=== PATIENT | male | born 1960 | race Hispanic/Latino ===

== ENCOUNTER 2019-01-29 03:34 | Inpatient (IN) | payer BC ==
[2019-01-29] MEDS ORDERED: Sodium Chloride 0.9% 50 ML IV ONE (04:17)
[2019-01-29] MEDS ORDERED: Iodixanol 320 MG/ML 100 ML BOTTLE IV ONE (04:17)
[2019-01-29 04:26] LABS: BASO # 0.1 K/uL (0.0-0.2); BASO % 1.1 % (0.0-2.0); EOS # 0.1 K/uL (0.0-0.7); EOS % 0.7 % (0.0-4.0); HEMOGLOBIN 17.1 g/dL (12.0-18.0); LYMPH # 2.2 K/uL (1.0-4.3); LYMPH % 17.2 % (20.0-40.0); MEAN CELL VOLUME 90.6 fl (80.0-94.0); MEAN CORPUSCULAR HEMOGLOBIN 30.6 pg (27.0-31.0); MEAN CORPUSCULAR HGB CONC 33.7 g/dL (33.0-37.0); MEAN PLATELET VOLUME 10.4 fl (7.2-11.7); MONO % 7.5 % (0.0-10.0); NEUT # 9.4 K/uL (1.8-7.0); NEUT % 73.5 % (50.0-75.0); NRBC % 0.1 % (0.0-0.0); RBC 5.59 Mil/uL (4.40-5.90); RED CELL DISTRIBUTION WIDTH 12.9 % (11.5-14.5); WHITE BLOOD COUNT 12.8 K/uL (4.8-10.8)
--- NOTE | 2019-01-29 04:27 | ED PDOC ---
HPI:STROKE - Time Time: 03:48 - Historian Historian: Patient - Chief Complaint Chief Complaint: Weakness (to right lower extremity), Numbness (to right lower extremity), Arm weakness, Leg weakness, Difficulty standing, Difficulty walking - Onset Date: 01/28/19 Time: 21:00 Onset: Hours (x5) - Location Locate right:: Upper extremity, Lower extremity - Associated Symptoms Associated symptoms:: Pain (right sided) - TPA Positive for Contraindication: No - Notes: Notes:: 58 years old male with no PMHx presents to ER for evaluation of right sided weakness and numbness onset 5 hours ago. States that around 10PM he noticed some clumsiness of his R hand that resolved. Patient reports at 11 o'clock he noticed combination of numbness, weakness and pain in right upper extremity. He states symptoms were coming and going but then persistent. Patient reports he felt he could not walk and has no strength in lower extremity. He states when he tried to walk, he immediately fell on the ground and crawled to the kitchen. Patient denies any chest pain, shortness of breath, alcohol or drug use. Active smoker. PMD: None provided, has not seen doctor in 10 years NIHSS Stroke Scale - Date/Time Evaluation Performed Date Performed: 01/29/19 Time Performed: 03:48 - How Severe is the Stroke Level of Consciousness: 0=Alert LOC to Questions: 0=Both comments correct LOC to commands: 0=Obeys both correctly Best Gaze: 0=Normal Visual: 0=No visual loss Facial: 0=Normal Motor Arm - Left: 0=No drift Motor Arm - Right: 0=No drift Motor Leg - Left: 0=No drift Motor Leg - Right: 0=No drift Limb Ataxia: 0=Absent Sensory: 0=Normal Best Language: 0=No aphasia Dysarthia: 0=Normal articulation Extinction & Inattention (Neglect): 0=Normal, no object Score: 0 rTPA Inclusion/Exclusion - Refusal of Treatment Patient Refused Treatment: No - Inclusion Criteria for Altepase All of the below criteria for inclusion were reviewed: Yes Patient is 18 years or Older: Yes The Clinical Diagnosis of Ischemic Stroke That is Causing a Potentially Disabling Neurological Deficit: Yes Time of Onset is Well Established to be Less Than 270 Minute Before Treatment Would Begin: No Risk/Benefit Discussed With Patient/Family Member Present: Yes Past Medical History Reviewed: Historical Data, Nursing Documentation, Vital Signs Vital Signs: Last Vital Signs Temp 98.7 F 01/29/19 03:39 Pulse 116 H 01/29/19 03:39 Resp 18 01/29/19 03:39 BP 200/139 H 01/29/19 03:39 Pulse Ox 100 01/29/19 03:39 - Medical History PMH: No Chronic Diseases - Surgical History Surgical History: No Surg Hx - Family History Family History: States: Unknown Family Hx - Allergies Allergies/Adverse Reactions: Allergies Allergy/AdvReac Type Severity Reaction Status Date / Time No Known Allergies Allergy Verified 01/29/19 03:48 Review of Systems ROS Statement: Except As Marked, All Systems Reviewed And Found Negative Cardiovascular: Negative for: Chest Pain Respiratory: Negative for: Shortness of Breath Neurological: Positive for: Weakness (to right upper and lower extremity), Numbness (to right upper and lower extremity) Physical Exam - Reviewed Nursing Documentation Reviewed: Yes Vital Signs Reviewed: Yes - Physical Exam Appears: Positive for: Well, No Acute Distress Head Exam: Positive for: ATRAUMATIC, NORMOCEPHALIC Skin: Positive for: Normal Color, Warm, Dry Eye Exam: Positive for: Normal appearance, EOMI, PERRL ENT: Positive for: Normal ENT Inspection Neck: Positive for: Normal, Painless ROM, Supple Cardiovascular/Chest: Positive for: Regular Rate, Rhythm. Negative for: Murmur Respiratory: Positive for: Normal Breath Sounds. Negative for: Respiratory Distress Gastrointestinal/Abdominal: Positive for: Normal Exam, Soft. Negative for: Tenderness Back: Positive for: Normal Inspection. Negative for: L CVA Tenderness, R CVA Tenderness Extremity: Positive for: Normal ROM. Negative for: Pedal Edema, Deformity Neurological/Psych: Positive for: Awake, Alert, Oriented (x3), Gait (Cannot stand on R leg), Cerebellar Tests (Normal), crude unit operator II-XII (Normal), Other (Normal speech). Negative for: Lethargic, Motor/Sensory Deficits, Facial Droop - Laboratory Results Result Diagrams: 01/29/19 04:05 01/29/19 04:05 Lab Results: PT 11.0 Seconds (9.8-13.1) 01/29/19 04:05 INR 1.0 01/29/19 04:05 - ECG O2 Sat by Pulse Oximetry: 100 (RA) Pulse Ox Interpretation: Normal Medical Decision Making Medical Decision Making: Time: 347 A/P: Subjective weakness and numbness to right side --Code stroke initiated, patient is currently with INH score of zero --TPA not administered --Will admit to telemetry for MRI and stroke 0411 CT Head Findings: There is normal configuration of sella turcica. There are no intra or extra-axi al collections. There is no mass effect or midline shift. There is no evidence of hematoma formation. No hydrocephalus is present. The ventricles are symmetrical. No abnormal calcifications are present. There is diffuse age-appropriate cerebellar and cerebral atrophy with proportionally dilated ventricles and cortical sulci. There are bilateral periventricular and subcortical white matter hypolucencies compatible with mild chronic microvascular disease. Otherwise, no significant focal abnormalities are seen either in the posterior fossa or supratentorial compartment. IMPRESSION: 1. Age-appropriate cerebellar and cerebral atrophy. 2. Mild chronic microvascular disease. 3. No evidence of acute intracranial pathology. 515 Patient re-evaluated, still with 5/5 strength but now has pronator drift on the R that was not present on initial exam, cannot stand up without falling to the L Currently BP is 113/84, HR [address] Alaniz [address] Alaniz who recommends ASA and MRI for possible cerebellar infarct Will place in Tele for further stroke workup and management 0537 CT Angio of Head Findings: Normal bilateral petrous carotid arteries. Normal right cavernous carotid artery with a normal supraclinoid bifurcation. Normal left cavernous carotid artery with a normal supraclinoid bifurcation. Normal right A1 segments of the anterior cerebral artery. Normal left A1 segments of the anterior cerebral artery. Normal intact anterior communicating artery (ACOM). Normal bilateral A2 segments of the anterior cerebral arteries. Normal right M1 and M2 segments of the middle cerebral arteries, with a normal M1 bifurcation. Normal left M1 and M2 segments of the middle cerebral arteries, with a normal M1 bifurcation. Normal right posterior communicating artery (PCOM). Normal left posterior communicating artery (PCOM). Normal bilateral vertebral arteries. Normal basilar artery with a normal basilar bifurcation. The visualized bilateral superior cerebellar (SCA) arteries are normal. Normal bilateral P1, P2 and visualized P3 segments of the posterior cerebral arteries. There is no demonstrated aneurysm of the [place]. There is no major vessel occlusion or hemodynamically significant stenosis. IMPRESSION: Normal CTA of the head. CT angiography of the neck vessels. Indication: Right-sided weakness. Technique: Axial CT angiographic images. Reformatted coronal and sagittal images. Findings: RIGHT CAROTID ARTERIES: Normal right common carotid artery (CCA). Normal right common carotid bulb. Normal origin of the right internal carotid (ICA) artery without a hemodynamically significant stenosis. Normal visualized cervical portion of the right internal carotid artery. Normal origin of the right external carotid artery (ECA). LEFT CAROTID ARTERIES: Normal left common carotid artery (CCA). 30 percent stenosis of the left common carotid bulb. 30% stenosis of the origin of the left internal carotid (ICA) chito ry without a hemodynamically significant stenosis. Normal visualized cervical portion of the left internal carotid artery. Normal origin of the left external carotid artery (ECA). VERTEBRAL ARTERIES: Normal antegrade flow within the bilateral vertebral artery without a hemodynamically significant stenosis. Multinodular thyroid goiter. IMPRESSION: 30% stenosis of the origin of the left internal carotid artery. 645AM --Case discussed wt Dr. Rosenberg who will assume care Scribe Attestation: Documented by Estefany Sanches, acting as a scribe for Warren Mckeon MD. Provider Scribe Attestation: All medical record entries made by the Scribe were at my direction and personally dictated by me. I have reviewed the chart and agree that the record accurately reflects my personal performance of the history, physical exam, medical decision making, and the department course for this patient. I have also personally directed, reviewed, and agree with the discharge instructions and disposition. Disposition - Clinical Impression Clinical Impression: Weakness - Disposition Disposition Time: 05:00 Condition: FAIR
[2019-01-29 04:28] LABS: PARTIAL THROMBOPLASTIN TIME 28.9 Seconds (25.6-37.1)
[2019-01-29 04:31] LABS: ALB/GLOB RATIO 1.7 (1.0-2.1); ALBUMIN 4.6 g/dL (3.5-5.0); ALT/SGPT 27 U/L (21-72); AST/SGOT 22 U/L (17-59); BLOOD UREA NITROGEN 21 mg/dl (9-20); CALCIUM 9.5 mg/dL (8.4-10.2); GFR NON-AFRICAN AMERICAN > 60; HDL CHOLESTEROL 50 MG/DL (30-70)
[2019-01-29 04:42] LABS: LDL CHOLESTEROL 90 mg/dL (0-129)
[2019-01-29] MEDS: Sodium Chloride 0.9% 1,000 ML IV SCH ×2 (06:42→16:58)
--- NOTE | 2019-01-29 07:32 | CARD ---
APPROVED REPORT Date of service: 01/29/2019 EKG Measurement Heart [id number] <Conclusion> Normal sinus rhythm Possible Left atrial enlargement T wave abnormality, consider inferior ischemia Abnormal ECG
--- NOTE | 2019-01-29 08:17 | RAD ---
Date of service: 01/29/2019 HISTORY: Code Stroke COMPARISON: No prior. TECHNIQUE: 1 view obtained. FINDINGS: LUNGS: No active pulmonary disease. PLEURA: No significant pleural effusion identified, no pneumothorax apparent. CARDIOVASCULAR: No aortic atherosclerotic calcification present. Normal cardiac size. No pulmonary vascular congestion. OSSEOUS STRUCTURES: No significant abnormalities. VISUALIZED UPPER ABDOMEN: Normal. OTHER FINDINGS: None. IMPRESSION: No acute cardiopulmonary disease appreciated.
--- NOTE | 2019-01-29 09:52 | CT ---
Date of service: 01/29/2019 PROCEDURE: CT HEAD WITHOUT CONTRAST. HISTORY: TIA, initial exam COMPARISON: None available. TECHNIQUE: Axial computed tomography images were obtained through the head/brain without intravenous contrast. Radiation dose: Total exam DLP = 933.02 mGy-cm. This CT exam was performed using one or more of the following dose reduction techniques: Automated exposure control, adjustment of the mA and/or kV according to patient size, and/or use of iterative reconstruction technique. FINDINGS: HEMORRHAGE: No intracranial hemorrhage. BRAIN: The delatorre-white matter differentiation is well preserved. There is no mass effect or definitive edema pattern appreciated including the cortex. There is trace but proportional expansion of the ventriculosulcal and cisternal spaces however in a pattern most compatible with diffuse cerebral atrophy. Trace chronic microangiopathy is appreciated in the periventricular white as well. No suspicious extra-axial fluid collection is identified in the midline brain anatomy appears grossly nonfocal as imaged. VENTRICLES: Ventricular system upper limits of normal. No definite hydrocephalus. CALVARIUM: Unremarkable. PARANASAL SINUSES: Unremarkable as visualized. No significant inflammatory changes. MASTOID AIR CELLS: Unremarkable as visualized. No inflammatory changes. OTHER FINDINGS: None. IMPRESSION: Trace age related neuro degenerative changes are appreciated. Ventricular system appears upper limits of normal with hydrocephalus not favored. Overall pattern likely a function of mild cerebral atrophy. No evidence of acute or subacute brain infarction. Follow-up CT or MRI are available as clinically warranted. Concordant preliminary report from [facility], 01/29/2019, 4:11 a.m..
[2019-01-29 10:12] LABS: BARBITURATES, UR NEGATIVE (NEGATIVE); BENZODIAZEPINES, UR NEGATIVE (NEGATIVE); OPIATES, UR NEGATIVE (NEGATIVE); PHENCYCLIDINE, UR NEGATIVE (NEGATIVE)
--- NOTE | 2019-01-29 11:12 | MRI ---
Date of service: 01/29/2019 PROCEDURE: MRI BRAIN WITHOUT CONTRAST HISTORY: possible cerebellar stroke COMPARISON: CT head without contrast performed earlier the same day. TECHNIQUE: Multiplanar, multisequence MR images of the brain were obtained without intravenous contrast enhancement. FINDINGS: HEMORRHAGE: None DWI: There is focal restricted diffusion in the left posterior thalamus capsular region. BRAIN PARENCHYMA: There are mild chronic microangiopathic changes. There is a 2.0 x 2.7 cm CSF signal intensity left frontal convexity extra-axial mass. No evidence of vasogenic edema in the underlying frontal lobe. There is no mass effect or abnormal extra-axial fluid collection VENTRICLES: There is mild age advanced global parenchymal volume loss and proportionate enlargement of the ventricles and cortical sulci. CRANIUM: There is normal bone marrow signal pattern. ORBITS: Grossly unremarkable. PARANASAL SINUSES/MASTOIDS: Clear VASCULAR SYSTEM: Skull base flow voids intact. OTHER FINDINGS: None. IMPRESSION: 1. Acute left MCA territory infarction involving the posterior thalamus capsular region. 2. 2.0 x 2.7 cm left frontal convexity CSF signal intensity extra-axial mass is statistically most compatible with an arachnoid cyst. 3. Mild chronic microangiopathic changes. 4. Mild age advanced global parenchymal volume loss. Important findings were discussed with Dr. Arroyo in the ER on 01/29/2019 at 11:04 a.m.
--- NOTE | 2019-01-29 12:34 | CT ---
Date of service: 01/29/2019 PROCEDURE: CT Angiography of the Brain. HISTORY: R sided weakness COMPARISON: Unenhanced head CT 01/29/2019 3:55 a.m.. TECHNIQUE: CT angiography of the head and neck was performed following intravenous contrast administration. Coronal and sagittal maximum intensity projection reformatted images were generated. Contrast Dose: Visipaque 320, 95 cc Radiation dose: Total exam DLP = 511.46 mGy-cm. This CT exam was performed using one or more of the following dose reduction techniques: Automated exposure control, adjustment of the mA and/or kV according to patient size, and/or use of iterative reconstruction technique. FINDINGS: INTERNAL CEREBRAL ARTERIES: Unremarkable. The skull base, petrous, cavernous and supraclinoid segments are bilaterally widely patent. ANTERIOR CEREBRAL ARTERIES: Unremarkable. A1 and A2 segments are widely patent. Smaller distal branches unremarkable, as visualized. MIDDLE CEREBRAL ARTERIES: Unremarkable. M1 and M2 segments are widely patent. Perisylvian branches grossly symmetric. POSTERIOR CIRCULATION: Basilar Artery: Unremarkable. Distal Vertebral Arteries: Codominant vertebrobasilar circulation. Posterior Cerebral Arteries: Unremarkable. Posterior Inferior Cerebellar Arteries: Unremarkable. NECK CTA: Aortic Arch: Normal three vessel arch identified. Common Carotid arteries: The bilateral common carotid appear widely patent from their origins to their bifurcations with no significant stenosis appreciated. Trace soft plaque right carotid bulb. Noncalcified plaque is more obvious at the left carotid bulb without at the right minimal calcification associated at the bilateral origins of the external carotid arteries. No evidence to suggest common carotid artery dissection. Internal Carotid arteries: No significant stenosis is appreciated throughout the cervical internal carotid artery segments bilaterally and there is no evidence of dissection either. External Carotid arteries: Appear widely patent. Vertebral arteries: The bilateral vertebral arteries appear normal in caliber from their origins to their distal cervical segments. No significant stenosis or definite pattern of dissection. ANEURYSM/ VASCULAR MALFORMATIONS: None. OTHER FINDINGS: None. IMPRESSION: 1. No large vessel occlusion or significant stenosis demonstrated by CT angiography of the brain. No definite aneurysm or arteriovascular malformation identified either. 2. No significant stenosis bilateral common or internal carotid or bilateral vertebral arteries. 3. Moderate soft plaque left carotid bulb without significant stenosis left ICA. Trace soft plaque right carotid bulb. 4. Three vessel aortic arch appreciated. Discordant preliminary report from [facility], 01/29/2019 at 5:37 a.m. in that there is no stenosis of the left internal carotid artery based on NASCET criteria.
[2019-01-29 13:22] VITALS: BMI 27.2
--- NOTE | 2019-01-29 13:29 | CARD ---
APPROVED REPORT Date of service: 01/29/2019 EKG Measurement Heart [id number] [place] 146P58 [id number] <Conclusion> Normal sinus rhythm T wave abnormality, consider inferior ischemia Prolonged QT Abnormal ECG
[2019-01-29 14:41] LABS: TROPONIN I 0.019 ng/mL (0.00-0.120)
--- NOTE | 2019-01-29 16:38 | CP.PCM.CON ---
History of Present Illness - History of Present Illness History of Present Illness: Neurology consult dictated. 58 yr old male who has had several spells that were thought to be TIA, but i feel that this is dementia. On extensive history taking from family, that is what it appears to be. Plan: 1. VIDEO eeg to rule out epilepsy 2. COntinue all meds THank you DR. Alaniz Neurology Past Patient History - Past Medical History & Family History Past Medical History?: Yes - Past Social History Smoking Status: Current Some Days Smoker - CARDIAC Hx Cardiac Disorders: No - PULMONARY Hx Respiratory Disorders: No - NEUROLOGICAL Hx Neurological Disorder: No - HEENT Hx HEENT Problems: No - RENAL Hx Chronic Kidney Disease: No - ENDOCRINE/METABOLIC Hx Endocrine Disorders: No - HEMATOLOGICAL/ONCOLOGICAL Hx Blood Disorders: No - INTEGUMENTARY Hx Dermatological Problems: No - MUSCULOSKELETAL/RHEUMATOLOGICAL Hx Musculoskeletal Disorders: No - GASTROINTESTINAL Hx Gastrointestinal Disorders: No - GENITOURINARY/GYNECOLOGICAL Hx Genitourinary Disorders: No - PSYCHIATRIC Hx Psychophysiologic Disorder: Yes - SURGICAL HISTORY Hx Surgeries: Yes Hx Appendectomy: Yes (at age 12) - ANESTHESIA Hx Anesthesia: Yes Hx Anesthesia Reactions: No Hx Malignant Hyperthermia: No Has any member of the family had a problem w/ anesthesia?: No Meds Allergies/Adverse Reactions: Allergies Allergy/AdvReac Type Severity Reaction Status Date / Time No Known Allergies Allergy Verified 01/29/19 03:48 - Medications Medications: Current Medications Atorvastatin Calcium (Lipitor) 40 mg PO DAILY [facility] Enoxaparin Sodium (Lovenox) 40 mg SC DAILY [facility]; Protocol Insulin Human Lispro (Humalog) 0 units SC ACHS [facility]; Protocol Metformin HCl (Glucophage) 1,000 mg PO BIDWM [facility] Results - Vital Signs Recent Vital Signs: Last Vital Signs Temp 97.8 F 01/29/19 15:04 Pulse 100 H 01/29/19 15:04 Resp 18 01/29/19 15:04 BP 175/100 H 01/29/19 15:04 Pulse Ox 97 01/29/19 15:04 - Labs Result Diagrams: 01/29/19 04:05 01/29/19 04:05 Labs: Laboratory Results - last 24 hr 01/29/19 01/29/19 01/29/19 04:05 04:05 04:05 WBC 12.8 H RBC 5.59 Hgb 17.1 Hct 50.7 MCV 90.6 MCH 30.6 MCHC 33.7 RDW 12.9 Plt Count 164 MPV 10.4 Neut % (Auto) 73.5 Lymph % (Auto) 17.2 L [place] % (Auto) 7.5 Eos % (Auto) 0.7 Baso % (Auto) 1.1 Neut # (Auto) 9.4 H Lymph # (Auto) 2.2 [place] # (Auto) 1.0 H Eos # (Auto) 0.1 Baso # (Auto) 0.1 PT INR APTT Sodium 137 Potassium 3.8 Chloride 100 Carbon Dioxide 27 Anion Gap 14 BUN 21 H Creatinine 0.8 Est GFR ( Amer) > 60 Est GFR (Non-Af Amer) > 60 POC Glucose (mg/dL) Random Glucose 262 H Hemoglobin A1c 9.8 H Calcium 9.5 Total Bilirubin 0.7 AST 22 ALT 27 Alkaline Phosphatase 100 Troponin I 0.0250 Total Protein 7.3 Albumin 4.6 Globulin 2.7 Albumin/Globulin Ratio 1.7 Triglycerides 98 Cholesterol 160 LDL Cholesterol Direct 90 HDL Cholesterol 50 TSH 3rd Generation Urine Opiates Screen Urine Methadone Screen Ur Barbiturates Screen Ur Phencyclidine Scrn Ur Amphetamines Screen U Benzodiazepines Scrn U Oth Cocaine Metabols U Cannabinoids Screen Blood Type Blood Type Confirm Antibody Screen BBK History Checked 01/29/19 01/29/19 01/29/19 04:05 04:05 05:56 WBC RBC Hgb Hct MCV MCH MCHC RDW Plt Count MPV Neut % (Auto) Lymph % (Auto) [place] % (Auto) Eos % (Auto) Baso % (Auto) Neut # (Auto) Lymph # (Auto) [place] # (Auto) Eos # (Auto) Baso # (Auto) PT 11.0 INR 1.0 APTT 28.9 Sodium Potassium Chloride Carbon Dioxide Anion Gap BUN Creatinine Est GFR ( Amer) Est GFR (Non-Af Amer) POC Glucose (mg/dL) 248 H Random Glucose Hemoglobin A1c Calcium Total Bilirubin AST ALT Alkaline Phosphatase Troponin I Total Protein Albumin Globulin Albumin/Globulin Ratio Triglycerides Cholesterol LDL Cholesterol Direct HDL Cholesterol TSH 3rd Generation Urine Opiates Screen Urine Methadone Screen Ur Barbiturates Screen Ur Phencyclidine Scrn Ur Amphetamines Screen U Benzodiazepines Scrn U Oth Cocaine Metabols U Cannabinoids Screen Blood Type B POSITIVE Blood Type Confirm Antibody Screen Negative BBK History Checked No verified bt 01/29/19 01/29/19 01/29/19 09:10 12:30 13:55 WBC RBC Hgb Hct MCV MCH MCHC RDW Plt Count MPV Neut % (Auto) Lymph % (Auto) [place] % (Auto) Eos % (Auto) Baso % (Auto) Neut # (Auto) Lymph # (Auto) [place] # (Auto) Eos # (Auto) Baso # (Auto) PT INR APTT Sodium Potassium Chloride Carbon Dioxide Anion Gap BUN Creatinine Est GFR ( Amer) Est GFR (Non-Af Amer) POC Glucose (mg/dL) Random Glucose Hemoglobin A1c Calcium Total Bilirubin AST ALT Alkaline Phosphatase Troponin I 0.0190 Total Protein Albumin Globulin Albumin/Globulin Ratio Triglycerides Cholesterol LDL Cholesterol Direct HDL Cholesterol TSH 3rd Generation 2.75 Urine Opiates Screen Negative Urine Methadone Screen Negative Ur Barbiturates Screen Negative Ur Phencyclidine Scrn Negative Ur Amphetamines Screen Negative U Benzodiazepines Scrn Negative U Oth Cocaine Metabols Negative U Cannabinoids Screen Positive H Blood Type Blood Type Confirm B POSITIVE Antibody Screen BBK History Checked 01/29/19 16:05 WBC RBC Hgb Hct MCV MCH MCHC RDW Plt Count MPV Neut % (Auto) Lymph % (Auto) [place] % (Auto) Eos % (Auto) Baso % (Auto) Neut # (Auto) Lymph # (Auto) [place] # (Auto) Eos # (Auto) Baso # (Auto) PT INR APTT Sodium Potassium Chloride Carbon Dioxide Anion Gap BUN Creatinine Est GFR ( Amer) Est GFR (Non-Af Amer) POC Glucose (mg/dL) 254 H Random Glucose Hemoglobin A1c Calcium Total Bilirubin AST ALT Alkaline Phosphatase Troponin I Total Protein Albumin Globulin Albumin/Globulin Ratio Triglycerides Cholesterol LDL Cholesterol Direct HDL Cholesterol TSH 3rd Generation Urine Opiates Screen Urine Methadone Screen Ur Barbiturates Screen Ur Phencyclidine Scrn Ur Amphetamines Screen U Benzodiazepines Scrn U Oth Cocaine Metabols U Cannabinoids Screen Blood Type Blood Type Confirm Antibody Screen BBK History Checked
--- NOTE | 2019-01-29 16:48 | CP.PCM.CON ---
History of Present Illness - History of Present Illness History of Present Illness: Neurology consult for Mr. Gray who presented with new onset right sided weakness, arm and leg, now resolving. Not Tpa candidate due to improvement of symptosm and due to presentation to ER over 4 hours after presentation. CTA head and neck showed no LVO. loaded with plavix. stroke workup started. NIHSS: 6 DR. Alaniz Neurology Past Patient History - Past Medical History & Family History Past Medical History?: Yes - Past Social History Smoking Status: Current Some Days Smoker - CARDIAC Hx Cardiac Disorders: No - PULMONARY Hx Respiratory Disorders: No - NEUROLOGICAL Hx Neurological Disorder: No - HEENT Hx HEENT Problems: No - RENAL Hx Chronic Kidney Disease: No - ENDOCRINE/METABOLIC Hx Endocrine Disorders: No - HEMATOLOGICAL/ONCOLOGICAL Hx Blood Disorders: No - INTEGUMENTARY Hx Dermatological Problems: No - MUSCULOSKELETAL/RHEUMATOLOGICAL Hx Musculoskeletal Disorders: No - GASTROINTESTINAL Hx Gastrointestinal Disorders: No - GENITOURINARY/GYNECOLOGICAL Hx Genitourinary Disorders: No - PSYCHIATRIC Hx Psychophysiologic Disorder: Yes - SURGICAL HISTORY Hx Surgeries: Yes Hx Appendectomy: Yes (at age 12) - ANESTHESIA Hx Anesthesia: Yes Hx Anesthesia Reactions: No Hx Malignant Hyperthermia: No Has any member of the family had a problem w/ anesthesia?: No Meds Allergies/Adverse Reactions: Allergies Allergy/AdvReac Type Severity Reaction Status Date / Time No Known Allergies Allergy Verified 01/29/19 03:48 - Medications Medications: Current Medications Atorvastatin Calcium (Lipitor) 40 mg PO DAILY [facility] Clopidogrel Bisulfate (Plavix) 75 mg PO DAILY [facility] Enoxaparin Sodium (Lovenox) 40 mg SC DAILY [facility]; Protocol Insulin Human Lispro (Humalog) 0 units SC [facility]; Protocol Metformin HCl (Glucophage) 1,000 mg PO BIDWM [facility] Results - Vital Signs Recent Vital Signs: Last Vital Signs Temp 98.1 F 01/29/19 16:26 Pulse 100 H 01/29/19 16:26 Resp 16 01/29/19 16:26 BP 199/107 H 01/29/19 16:26 Pulse Ox 96 01/29/19 16:26 - Labs Result Diagrams: 01/29/19 04:05 01/29/19 04:05 Labs: Laboratory Results - last 24 hr 01/29/19 01/29/19 01/29/19 04:05 04:05 04:05 WBC 12.8 H RBC 5.59 Hgb 17.1 Hct 50.7 MCV 90.6 MCH 30.6 MCHC 33.7 RDW 12.9 Plt Count 164 MPV 10.4 Neut % (Auto) 73.5 Lymph % (Auto) 17.2 L Wood % (Auto) 7.5 Eos % (Auto) 0.7 Baso % (Auto) 1.1 Neut # (Auto) 9.4 H Lymph # (Auto) 2.2 Wood # (Auto) 1.0 H Eos # (Auto) 0.1 Baso # (Auto) 0.1 PT INR APTT Sodium 137 Potassium 3.8 Chloride 100 Carbon Dioxide 27 Anion Gap 14 BUN 21 H Creatinine 0.8 Est GFR ( Amer) > 60 Est GFR (Non-Af Amer) > 60 POC Glucose (mg/dL) Random Glucose 262 H Hemoglobin A1c 9.8 H Calcium 9.5 Total Bilirubin 0.7 AST 22 ALT 27 Alkaline Phosphatase 100 Troponin I 0.0250 Total Protein 7.3 Albumin 4.6 Globulin 2.7 Albumin/Globulin Ratio 1.7 Triglycerides 98 Cholesterol 160 LDL Cholesterol Direct 90 HDL Cholesterol 50 TSH 3rd Generation Urine Opiates Screen Urine Methadone Screen Ur Barbiturates Screen Ur Phencyclidine Scrn Ur Amphetamines Screen U Benzodiazepines Scrn U Oth Cocaine Metabols U Cannabinoids Screen Blood Type Blood Type Confirm Antibody Screen BBK History Checked 01/29/19 01/29/19 01/29/19 04:05 04:05 05:56 WBC RBC Hgb Hct MCV MCH MCHC RDW Plt Count MPV Neut % (Auto) Lymph % (Auto) Wood % (Auto) Eos % (Auto) Baso % (Auto) Neut # (Auto) Lymph # (Auto) Wood # (Auto) Eos # (Auto) Baso # (Auto) PT 11.0 INR 1.0 APTT 28.9 Sodium Potassium Chloride Carbon Dioxide Anion Gap BUN Creatinine Est GFR ( Amer) Est GFR (Non-Af Amer) POC Glucose (mg/dL) 248 H Random Glucose Hemoglobin A1c Calcium Total Bilirubin AST ALT Alkaline Phosphatase Troponin I Total Protein Albumin Globulin Albumin/Globulin Ratio Triglycerides Cholesterol LDL Cholesterol Direct HDL Cholesterol TSH 3rd Generation Urine Opiates Screen Urine Methadone Screen Ur Barbiturates Screen Ur Phencyclidine Scrn Ur Amphetamines Screen U Benzodiazepines Scrn U Oth Cocaine Metabols U Cannabinoids Screen Blood Type B POSITIVE Blood Type Confirm Antibody Screen Negative BBK History Checked No verified bt 01/29/19 01/29/19 01/29/19 09:10 12:30 13:55 WBC RBC Hgb Hct MCV MCH MCHC RDW Plt Count MPV Neut % (Auto) Lymph % (Auto) Wood % (Auto) Eos % (Auto) Baso % (Auto) Neut # (Auto) Lymph # (Auto) Wood # (Auto) Eos # (Auto) Baso # (Auto) PT INR APTT Sodium Potassium Chloride Carbon Dioxide Anion Gap BUN Creatinine Est GFR ( Amer) Est GFR (Non-Af Amer) POC Glucose (mg/dL) Random Glucose Hemoglobin A1c Calcium Total Bilirubin AST ALT Alkaline Phosphatase Troponin I 0.0190 Total Protein Albumin Globulin Albumin/Globulin Ratio Triglycerides Cholesterol LDL Cholesterol Direct HDL Cholesterol TSH 3rd Generation 2.75 Urine Opiates Screen Negative Urine Methadone Screen Negative Ur Barbiturates Screen Negative Ur Phencyclidine Scrn Negative Ur Amphetamines Screen Negative U Benzodiazepines Scrn Negative U Oth Cocaine Metabols Negative U Cannabinoids Screen Positive H Blood Type Blood Type Confirm B POSITIVE Antibody Screen BBK History Checked 01/29/19 16:05 WBC RBC Hgb Hct MCV MCH MCHC RDW Plt Count MPV Neut % (Auto) Lymph % (Auto) Wood % (Auto) Eos % (Auto) Baso % (Auto) Neut # (Auto) Lymph # (Auto) Wood # (Auto) Eos # (Auto) Baso # (Auto) PT INR APTT Sodium Potassium Chloride Carbon Dioxide Anion Gap BUN Creatinine Est GFR ( Amer) Est GFR (Non-Af Amer) POC Glucose (mg/dL) 254 H Random Glucose Hemoglobin A1c Calcium Total Bilirubin AST ALT Alkaline Phosphatase Troponin I Total Protein Albumin Globulin Albumin/Globulin Ratio Triglycerides Cholesterol LDL Cholesterol Direct HDL Cholesterol TSH 3rd Generation Urine Opiates Screen Urine Methadone Screen Ur Barbiturates Screen Ur Phencyclidine Scrn Ur Amphetamines Screen U Benzodiazepines Scrn U Oth Cocaine Metabols U Cannabinoids Screen Blood Type Blood Type Confirm Antibody Screen BBK History Checked
[2019-01-29] MEDS: Insulin Lispro (humaLOG) 100 Units/ml Inj SC SCH ×2 (16:54→21:58)
[2019-01-29] MEDS: Enoxaparin 40 mg Syringe SC SCH (16:57)
[2019-01-29 19:20] LABS: SQUAMOUS EPITHIAL < 1 /hpf (0-5); URINE BILIRUBIN NEGATIVE (NEGATIVE); URINE CLARITY CLEAR (Clear); URINE COLOR YELLOW (YELLOW); URINE GLUCOSE (UA) >=500 mg/dL (NEGATIVE); URINE LEUKOCYTE ESTERASE NEG Leu/uL (Negative); URINE PROTEIN 30 mg/dL (NEGATIVE); URINE UROBILINOGEN 0.2-1.0 mg/dL (0.2-1.0)
[2019-01-29 19:57] LABS: URINE BLOOD TRACE (NEGATIVE)
--- NOTE | 2019-01-29 21:33 | CARD ---
APPROVED REPORT Date of service: 01/29/2019 EXAM: Two-dimensional and M-mode echocardiogram with Doppler and color Doppler. Other Information Quality : GoodRhythm : Tachycardia INDICATION CVA/TIA 2D DIMENSIONS IVSd2.00 (0.7-1.1cm)LVDd3.44 (3.9-5.9cm) LVOT Diameter2.45 (1.8-2.4cm)PWd1.80 (0.7-1.1cm) IVSs2.14 (0.8-1.2cm)LVDs2.28 (2.5-4.0cm) FS (%) 33.8 %PWs2.14 (0.8-1.2cm) M-Mode DIMENSIONS Left Atrium (MM)2.74 (2.5-4.0cm)IVSd1.26 (0.7-1.1cm) Aortic Root3.47 (2.2-3.7cm)LVDd4.79 (4.0-5.6cm) Aortic Cusp Exc.2.15 (1.5-2.0cm)PWd1.68 (0.7-1.1cm) IVSs2.09 cmFS (%) 50 % LVDs2.41 (2.0-3.8cm)PWs2.32 cm Aortic Valve AoV Peak Lqdrscly550.5cm/sAoV VTI34.9cmAO Peak GR.10mmHg LVOT Peak Izuddfgz763.8cm/sLVOT VTI20.21cmAO Mean GR.6mmHg PAVEL (VMAX)1.45hf8BUJ (VTI)1.18cm2 Mitral Valve MV E Nysylcpq16.5cm/sMV DECEL [id number] A Drlowpvh24.4cm/s MV WYC13vzK/A ratio0.7MVA (PHT)2.84cm2 TDI Lateral E' Peak V9.78cm/sMedial E' Peak V5.79cm/sE/Lateral E'6.2 E/Medial E'10.4 LEFT VENTRICLE The left ventricle is normal size. There is moderate concentric left ventricular hypertrophy. The left ventricular systolic function is normal. The estimated ejection fraction is 60-65% No regional wall motion abnormalities noted.. Transmitral Doppler flow pattern is Grade I-abnormal relaxation pattern. No left ventricle thrombus noted on this study. There is no ventricular septal defect visualized. There is no left ventricular aneurysm. There is no mass noted in the left ventricle. RIGHT VENTRICLE The right ventricle is normal size. There is normal right ventricular wall thickness. The right ventricular systolic function is normal. ATRIA The left atrium size is normal. The right atrium size is normal. The interatrial septum is intact with no evidence for an atrial septal defect. AORTIC VALVE The aortic valve is normal in structure. No aortic regurgitation is present. There is no aortic valvular stenosis. There is no aortic valvular vegetation. MITRAL VALVE The mitral valve is normal in structure. There is no evidence of mitral valve prolapse. There is no mitral valve stenosis. There is no mitral valve regurgitation noted. TRICUSPID VALVE The tricuspid valve is normal in structure. There is no tricuspid valve regurgitation noted. There is no tricuspid valve prolapse or vegetation. There is no tricuspid valve stenosis. PULMONIC VALVE The pulmonary valve is normal in structure. There is no pulmonic valvular regurgitation. There is no pulmonic valvular stenosis. GREAT VESSELS The aortic root is normal in size. The ascending aorta is normal in size. The pulmonary artery is normal. The IVC is normal in size and collapses >50% with inspiration. PERICARDIAL EFFUSION There is no pericardial effusion. There is no pleural effusion. <Conclusion> There is moderate concentric left ventricular hypertrophy. The estimated ejection fraction is 60-65% Transmitral Doppler flow pattern is Grade I-abnormal relaxation pattern. The left atrium size is normal. There is no tricuspid valve regurgitation noted.
[2019-01-30] MEDS: Insulin Lispro (humaLOG) 100 Units/ml Inj SC SCH ×4 (06:32→22:00)
[2019-01-30 07:29] LABS: HEMOGLOBIN 17.1 g/dL (12.0-18.0); MEAN CELL VOLUME 90.7 fl (80.0-94.0); MEAN CORPUSCULAR HEMOGLOBIN 30.5 pg (27.0-31.0); MEAN CORPUSCULAR HGB CONC 33.6 g/dL (33.0-37.0); RBC 5.62 Mil/uL (4.40-5.90); RED CELL DISTRIBUTION WIDTH 13.1 % (11.5-14.5); WHITE BLOOD COUNT 11.2 K/uL (4.8-10.8)
[2019-01-30 07:38] LABS: BLOOD UREA NITROGEN 17 mg/dl (9-20); CALCIUM 9.5 mg/dL (8.4-10.2); GFR NON-AFRICAN AMERICAN > 60
[2019-01-30] MEDS: Enoxaparin 40 mg Syringe SC SCH (09:12)
[2019-01-30] MEDS ORDERED: Potassium Chloride 20 mEq/15 ml LIQ UD PO STA (16:11)
--- NOTE | 2019-01-30 16:11 | CP.PCM.HP ---
History of Present Illness - History of Present Illness History of Present Illness: CC: Right Sided Numbness and Weakness History of Present Illness A 58 years old male with no PMHx presents to ER for evaluation of right sided weakness and numbness onset 5 hours ago. States that around 10PM he noticed some clumsiness of his R hand that resolved. Patient reports at 11 o'clock he noticed combination of numbness, weakness and pain in right upper extremity. He states symptoms were coming and going but then persistent. Patient reports he felt he could not walk and has no strength in lower extremity. He states when he tried to walk, he immediately fell on the ground and crawled to the kitchen. Patient denies any chest pain, shortness of breath or alcohol. Active smoker. Present on Admission - Present on Admission Any Indicators Present on Admission: No Review of Systems - Review of Systems All systems: reviewed and no additional remarkable complaints except Review of Systems: as per HPI Past Patient History - Past Medical History & Family History Past Medical History?: Yes Past Family History: Reviewed and not pertinent - Past Social History Smoking Status: Current Some Days Smoker Alcohol: Social Drugs: Cannabis - CARDIAC Hx Cardiac Disorders: No - PULMONARY Hx Respiratory Disorders: No - NEUROLOGICAL Hx Neurological Disorder: No - HEENT Hx HEENT Problems: No - RENAL Hx Chronic Kidney Disease: No - ENDOCRINE/METABOLIC Hx Endocrine Disorders: No - HEMATOLOGICAL/ONCOLOGICAL Hx Blood Disorders: No - INTEGUMENTARY Hx Dermatological Problems: No - MUSCULOSKELETAL/RHEUMATOLOGICAL Hx Musculoskeletal Disorders: No - GASTROINTESTINAL Hx Gastrointestinal Disorders: No - GENITOURINARY/GYNECOLOGICAL Hx Genitourinary Disorders: No - PSYCHIATRIC Hx Psychophysiologic Disorder: Yes - SURGICAL HISTORY Hx Surgeries: Yes Hx Appendectomy: Yes (at age 12) - ANESTHESIA Hx Anesthesia: Yes Hx Anesthesia Reactions: No Hx Malignant Hyperthermia: No Has any member of the family had a problem w/ anesthesia?: No Meds Home Medications: Home Medication List Medication Instructions Recorded Confirmed Type Aspirin [Ecotrin] 81 mg PO DAILY tabec 02/02/19 Rx Atorvastatin [Lipitor] 40 mg PO DAILY tab 02/02/19 Rx Clopidogrel [Plavix] 75 mg PO DAILY tab 02/02/19 Rx MetFORMIN [glucoPHAGE] 1,000 mg PO BIDWM tab 02/02/19 Rx Metoprolol Tartrate [Lopressor] 100 mg PO Q12 tab 02/02/19 Rx amLODIPine [Norvasc] 10 mg PO DAILY tab 02/02/19 Rx Allergies/Adverse Reactions: Allergies Allergy/AdvReac Type Severity Reaction Status Date / Time No Known Allergies Allergy Verified 01/29/19 03:48 Physical Exam - Constitutional Appears: No Acute Distress - Head Exam Head Exam: ATRAUMATIC, NORMAL INSPECTION, NORMOCEPHALIC - Eye Exam Eye Exam: EOMI, Normal appearance, PERRL Pupil Exam: NORMAL ACCOMODATION, PERRL - ENT Exam ENT Exam: Mucous Membranes Moist, Normal Exam - Neck Exam Neck exam: Positive for: Normal Inspection - Respiratory Exam Respiratory Exam: Clear to Auscultation Bilateral, NORMAL BREATHING PATTERN - Cardiovascular Exam Cardiovascular Exam: REGULAR RHYTHM, +S1, +S2 - GI/Abdominal Exam GI & Abdominal Exam: Normal Bowel Sounds, Soft. absent: Tenderness - Extremities Exam Extremities exam: Positive for: normal capillary refill, normal inspection - Back Exam Back exam: NORMAL INSPECTION - Neurological Exam Neurological exam: Abnormal Gait, Motor Sensory Deficit (Right Power UE 2-3/5, and LE 3/5), Normal Gait, Oriented x3, Reflexes Normal Additional comments: CN VII Palsy. Right Sided Loss of Coordination of Finger-to- Nose, and Cortes-to-Leg. - Psychiatric Exam Psychiatric exam: Normal Affect, Normal Mood - Skin Skin Exam: Dry, Intact, Normal Color, Warm Results - Vital Signs Recent Vital Signs: Last Vital Signs Temp 98.8 F 01/30/19 16:03 Pulse 103 H 01/30/19 16:03 Resp 18 01/30/19 16:03 BP 181/118 H 01/30/19 16:03 Pulse Ox 95 01/30/19 16:03 - Labs Result Diagrams: 01/30/19 05:20 01/30/19 05:20 Labs: Laboratory Results - last 24 hr 01/29/19 01/29/19 01/29/19 14:00 16:05 19:20 WBC RBC Hgb Hct MCV MCH MCHC RDW Plt Count Sodium Potassium Chloride Carbon Dioxide Anion Gap BUN Creatinine Est GFR ( Amer) Est GFR (Non-Af Amer) POC Glucose (mg/dL) 254 H Random Glucose Calcium Troponin I Urine Color Yellow Urine Clarity Clear Urine pH 6.0 Ur Specific [place] 1.040 H Urine Protein 30 Urine Glucose (UA) >=500 Urine Ketones 80 Urine Blood Trace Urine Nitrate Negative Urine Bilirubin Negative Urine Urobilinogen 0.2-1.0 Ur Leukocyte Esterase Neg Urine RBC (Auto) 2 Urine Microscopic WBC 1 Ur Squamous Epith Cells < 1 Urine Creatinine 72 Urine Microalbumin 8.8 Microalb/Creat Ratio 122 H 01/29/19 01/29/19 01/30/19 20:58 21:15 05:20 WBC 11.2 H RBC 5.62 Hgb 17.1 Hct 50.9 MCV 90.7 MCH 30.5 MCHC 33.6 RDW 13.1 Plt Count 154 Sodium Potassium Chloride Carbon Dioxide Anion Gap BUN Creatinine Est GFR ( Amer) Est GFR (Non-Af Amer) POC Glucose (mg/dL) 152 H Random Glucose Calcium Troponin I 0.0180 Urine Color Urine Clarity Urine pH Ur Specific [place] Urine Protein Urine Glucose (UA) Urine Ketones Urine Blood Urine Nitrate Urine Bilirubin Urine Urobilinogen Ur Leukocyte Esterase Urine RBC (Auto) Urine Microscopic WBC Ur Squamous Epith Cells Urine Creatinine Urine Microalbumin Microalb/Creat Ratio 01/30/19 01/30/19 01/30/19 05:20 05:33 11:08 WBC RBC Hgb Hct MCV MCH MCHC RDW Plt Count Sodium 135 Potassium 3.4 L Chloride 101 Carbon Dioxide 24 Anion Gap 13 BUN 17 Creatinine 0.6 L Est GFR ( Amer) > 60 Est GFR (Non-Af Amer) > 60 POC Glucose (mg/dL) 211 H 266 H Random Glucose 202 H Calcium 9.5 Troponin I Urine Color Urine Clarity Urine pH Ur Specific [place] Urine Protein Urine Glucose (UA) Urine Ketones Urine Blood Urine Nitrate Urine Bilirubin Urine Urobilinogen Ur Leukocyte Esterase Urine RBC (Auto) Urine Microscopic WBC Ur Squamous Epith Cells Urine Creatinine Urine Microalbumin Microalb/Creat Ratio 01/30/19 15:54 WBC RBC Hgb Hct MCV MCH MCHC RDW Plt Count Sodium Potassium Chloride Carbon Dioxide Anion Gap BUN Creatinine Est GFR ( Amer) Est GFR (Non-Af Amer) POC Glucose (mg/dL) 234 H Random Glucose Calcium Troponin I Urine Color Urine Clarity Urine pH Ur Specific [place] Urine Protein Urine Glucose (UA) Urine Ketones Urine Blood Urine Nitrate Urine Bilirubin Urine Urobilinogen Ur Leukocyte Esterase Urine RBC (Auto) Urine Microscopic WBC Ur Squamous Epith Cells Urine Creatinine Urine Microalbumin Microalb/Creat Ratio - Imaging and Cardiology CT scan - head Status: Report reviewed by me Additional comment: Date of service: 01/29/2019 PROCEDURE: CT HEAD WITHOUT CONTRAST. HISTORY: TIA, initial exam COMPARISON: None available. TECHNIQUE: Axial computed tomography images were obtained through the head/brain without intravenous contrast. Radiation dose: Total exam DLP = 933.02 mGy-cm. This CT exam was performed using one or more of the following dose reduction techniques: Automated exposure control, adjustment of the mA and/or kV according to patient size, and/or use of iterative reconstruction technique. FINDINGS: HEMORRHAGE: No intracranial hemorrhage. BRAIN: The delatorre-white matter differentiation is well preserved. There is no mass effect or definitive edema pattern appreciated including the cortex. There is trace but proportional expansion of the ventriculosulcal and cisternal spaces however in a pattern most compatible with diffuse cerebral atrophy. Trace chronic microangiopathy is appreciated in the periventricular white as well. No suspicious extra-axial fluid collection is identified in the midline brain anatomy appears grossly nonfocal as imaged. VENTRICLES: Ventricular system upper limits of normal. No definite hydrocephalus. CALVARIUM: Unremarkable. PARANASAL SINUSES: Unremarkable as visualized. No significant inflammatory changes. MASTOID AIR CELLS: Unremarkable as visualized. No inflammatory changes. OTHER FINDINGS: None. IMPRESSION: Trace age related neuro degenerative changes are appreciated. Ventricular system appears upper limits of normal with hydrocephalus not favored. Overall pattern likely a function of mild cerebral atrophy. No evidence of acute or subacute brain infarction. Follow-up CT or MRI are available as clinically warranted. MRI - head Status: Report reviewed by me Additional comment: Date of service: 01/29/2019 PROCEDURE: MRI BRAIN WITHOUT CONTRAST HISTORY: possible cerebellar stroke COMPARISON: CT head without contrast performed earlier the same day. TECHNIQUE: Multiplanar, multisequence MR images of the brain were obtained without intravenous contrast enhancement. FINDINGS: HEMORRHAGE: None DWI: There is focal restricted diffusion in the left posterior thalamus capsular region. BRAIN PARENCHYMA: There are mild chronic microangiopathic changes. There is a 2.0 x 2.7 cm CSF signal intensity left frontal convexity extra-axial mass. No evidence of vasogenic edema in the underlying frontal lobe. There is no mass effect or abnormal extra-axial fluid collection VENTRICLES: There is mild age advanced global parenchymal volume loss and proportionate enlargement of the ventricles and cortical sulci. CRANIUM: There is normal bone marrow signal pattern. ORBITS: Grossly unremarkable. PARANASAL SINUSES/MASTOIDS: Clear VASCULAR SYSTEM: Skull base flow voids intact. OTHER FINDINGS: None. IMPRESSION: 1. Acute left MCA territory infarction involving the posterior thalamus capsular region. 2. 2.0 x 2.7 cm left frontal convexity CSF signal intensity extra-axial mass is statistically most compatible with an arachnoid cyst. 3. Mild chronic microangiopathic changes. 4. Mild age advanced global parenchymal volume loss. Assessment & Plan (1) Acute CVA (cerebrovascular accident) Status: Acute Priority: High (2) Right hemiparesis Status: Acute Priority: High (3) Diabetes mellitus with hyperglycemia Status: Acute Priority: High (4) Essential (primary) hypertension Status: Chronic Priority: Low - Assessment and Plan (Free Text) Plan: ASA Lipitor Neuro-check Q4hrs Swallow Evaluation HgA1C TTE Lipid Profile Neurology Consult DVT Prophylaxis
[2019-01-31] MEDS: Enoxaparin 40 mg Syringe SC SCH (09:59)
[2019-01-31] MEDS: Insulin Lispro (humaLOG) 100 Units/ml Inj SC SCH ×4 (10:00→22:28)
--- NOTE | 2019-01-31 10:56 | CP.PCM.PN ---
Subjective - Date & Time of Evaluation Date of Evaluation: 01/30/19 Objective - Vital Signs/Intake and Output Vital Signs (last 24 hours): Temp Pulse Resp BP Pulse Ox 98.2 F 94 H 18 185/113 H 98 01/31/19 07:48 01/31/19 07:48 01/31/19 07:48 01/31/19 07:48 01/31/19 07:48 - Medications Medications: Current Medications Atorvastatin Calcium (Lipitor) 40 mg PO DAILY [facility] Last Admin: 01/31/19 09:59 Dose: 40 mg Clopidogrel Bisulfate (Plavix) 75 mg PO DAILY [facility] Last Admin: 01/31/19 09:59 Dose: 75 mg Enoxaparin Sodium (Lovenox) 40 mg SC DAILY [facility]; Protocol Last Admin: 01/31/19 09:59 Dose: 40 mg Insulin Human Lispro (Humalog) 0 units SC [facility]; Protocol Last Admin: 01/31/19 10:00 Dose: 2 units Lactulose (Enulose) 20 gm PO Q12 [facility] Last Admin: 01/31/19 10:01 Dose: Not Given Metformin HCl (Glucophage) 1,000 mg PO BIDWM [facility] Last Admin: 01/31/19 10:00 Dose: 1,000 mg - Labs Labs: 01/30/19 05:20 01/30/19 05:20 PT 11.0 Seconds (9.8-13.1) 01/29/19 04:05 INR 1.0 01/29/19 04:05 APTT 28.9 Seconds (25.6-37.1) 01/29/19 04:05
[2019-02-01] MEDS: Insulin Lispro (humaLOG) 100 Units/ml Inj SC SCH ×4 (10:01→23:50)
[2019-02-01] MEDS: Enoxaparin 40 mg Syringe SC SCH (10:02)
--- NOTE | 2019-02-01 12:23 | PCM.STROKE ---
Interval History Stroke Date: 01/28/19 (s/s started at approx 2200) No other interval changes in current, PMHx, FHx, SocHx, ROS: other than on note by: (initial neuro H&P) - Treatment DVT Prophylaxis: Lovenox Antiplatelet: Acetylsalicylic acid (ASA), Plavix Statin: Atrovastatin - Education Written Stroke Education provided regarding: personal risk factors, stroke warning sign/symptoms, how to activate emergency medical services, need to follow up after discharge Hx Atrial Fibrillation: No Hx Atrial Flutter: No - Therapy Notes Physical therapy notes date reviewed: 02/01/19 Speech therapy notes date reviewed: 02/01/19 I have reviewed care of the patient with: Dr. Wiggins NIHSS Stroke Scale - Date/Time Evaluation Performed Date Performed: 02/01/19 Time Performed: 12:15 When Was NIHSS Performed: Re-evaluation - How Severe is the Stroke Level of Consciousness: 0=Alert LOC to Questions: 0=Both comments correct LOC to commands: 0=Obeys both correctly Best Gaze: 0=Normal Visual: 0=No visual loss Facial: 0=Normal Motor Arm - Left: 0=No drift Motor Arm - Right: 1=Drift noted before 10 sec Motor Leg - Left: 0=No drift Motor Leg - Right: 0=No drift Limb Ataxia: 0=Absent Sensory: 1=Mild to moderate loss (decreased sensation to RUE and RLE; right side face) Best Language: 0=No aphasia Dysarthia: 0=Normal articulation Extinction & Inattention (Neglect): 0=Normal, no object Score: 2 Exam - Vital Sign Vital Signs: Temp Pulse Resp BP Pulse Ox 98.2 F 98 H 20 190/130 H 98 02/01/19 08:46 02/01/19 08:46 02/01/19 08:46 02/01/19 08:46 02/01/19 08:46 Constitutional: No distress, Normal appearing Ophthalmoscopic: absent: papilledema, hemorrhage Right Pupil: Reactive Right Pupil Size (in mm): 3 Left Pupil: Reactive Left Pupil Size (in mm): 3 Cardiovascular: Regular rate & rhythm Mental Status: Normal: Orientation, Memory, Attention, Language, Fund of Knowledge Cranial Nerve: Normal: Visual Louise, Extraocular movement intact, Facial Strength, Hearing, Palate/Tongue Movement, Shoulder Strength. Abnormal: Facial Sensation (decreased slightly to right side) Motor: Tone, Bulk Neuro motor strength exam: Left Upper Extremity: 5 (distal 5/5), Right Upper E xtremity: 3 (distal 3/5), Left Lower Extremity: 5 (distal 5/5), Right Lower Extremity: 4 (distal 2-3/5) Sensation: Intact to pin, Vibration, Propriception throughout DTR: Patellar Left: 1+, Patellar Right: 1+ Flexor Plantar Reflex: Abnormal Right (decreased right side) Coordination: absent: Finger/nose (dysmetria right side), Heel/Cortes (abnormal right side) Vascular Risk: Hypertension, Diabetes Mellitus, Smoking, Dietary - Data reviewed Laboratory results: 01/30/19 05:20 01/30/19 05:20 Triglycerides 98 mg/DL (0-149) 01/29/19 04:05 Cholesterol 160 mg/dL (0-199) 01/29/19 04:05 LDL Cholesterol Direct 90 mg/dL (0-129) 01/29/19 04:05 HDL Cholesterol 50 MG/DL (30-70) 01/29/19 04:05 Hemoglobin A1c 9.8 % (4.2-6.5) H 01/29/19 04:05 Assessment and Plan (1) CVA (cerebral vascular accident) Assessment & Plan: Imaging reviewed: -MRI Brain (01/29/19): 1. Acute left MCA territory infarction involving the posterior thalamus capsular region. 2. 2.0 x 2.7 cm left frontal convexity CSF signal intensity extra-axial mass is statistically most compatible with an arachnoid cyst. 3. Mild chronic microangiopathic changes. 4. Mild age advanced global parenchymal volume loss. -ECHO (01/27/19): EF 60-65%; no ASD, no LV thrombus. -CTA Head and Neck (01/29/19): 1. No large vessel occlusion or significant stenosis demonstrated by CT angiography of the brain. No definite aneurysm or arteriovascular malformation identified either. 2. No significant stenosis bilateral common or internal carotid or bilateral vertebral arteries. 3. Moderate soft plaque left carotid bulb without significant stenosis left ICA. Trace soft plaque right carotid bulb. 4. Three vessel aortic arch appreciated. -CT Head (01/29/19): Trace age related neuro degenerative changes are appreciated. Ventricular system appears upper limits of normal with hydrocephalus not favored. Overall pattern likely a function of mild cerebral atrophy. No evidence of acute or subacute brain infarction. Follow-up CT or MRI are available as clinically warranted. -Continue ASA, Plavix, Statin. -Repeat non-contrast CT head today to re-eval for hemorrhagic conversion--will f/u with results. -Continue PT/OT. Recommend acute rehab if possible. -Cardiology consultation pending. -Maintain normal BP now that permissive HTN has been completed; start Norvasc 5 mg PO daily and Metoprolol 50 mg PO BID. -Discussed at length with pt his CVA risk factors, new medications, s/s of worsening in condition and when to notify the RN. -Notify neuro team of any acute changes in pt's condition. Radha Zhong, RAJEEV, CAMPUS RECEPTIONIST d/w Dr. Wiggins Status: Acute
--- NOTE | 2019-02-01 15:19 | CT ---
Date of service: 02/01/2019 PROCEDURE: CT HEAD WITHOUT CONTRAST. HISTORY: re-eval for hemorrhagic conversion on acute stroke COMPARISON: 01/29/2019. CT head is. 01/29/2019 MRI brain. Summary of findings on the comparison examination: Acute left MCA territory infarction involving the posterior thalamus capsular region. TECHNIQUE: Axial computed tomography images were obtained through the head/brain without intravenous contrast. Supplemental Coronal and Sagittal projections created and reviewed. Radiation dose: Total exam DLP = <inf_radiation_dlp> mGy-cm. This CT exam was performed using one or more of the following dose reduction techniques: Automated exposure control, adjustment of the mA and/or kV according to patient size, and/or use of iterative reconstruction technique. FINDINGS: HEMORRHAGE: No intracranial hemorrhage. BRAIN: Evolving acute left thalamic infarct, bland. No evidence hemorrhage. VENTRICLES: Unremarkable. No hydrocephalus. CALVARIUM: Unremarkable. PARANASAL SINUSES: Unremarkable as visualized. No significant inflammatory changes. MASTOID AIR CELLS: Unremarkable as visualized. No inflammatory changes. OTHER FINDINGS: None. IMPRESSION: Evolving acute and nonhemorrhagic infarction affecting left thalamus and adjacent internal capsule.
[2019-02-01] MEDS: Alum-Mag Hydrox-Simethicone Susp (30 mL) PO PRN (21:07)
--- NOTE | 2019-02-02 10:57 | PCM.STROKE ---
Interval History - Treatment Antiplatelet: Acetylsalicylic acid (ASA), Plavix Statin: Atrovastatin - Education Written Stroke Education provided regarding: personal risk factors, stroke warning sign/symptoms, how to activate emergency medical services, need to follow up after discharge Hx Atrial Fibrillation: No Hx Atrial Flutter: No - Therapy Notes Physical therapy notes date reviewed: 02/02/19 Occupational therapy notes date reviewed: 02/02/19 Speech therapy notes date reviewed: 02/02/19 I have reviewed care of the patient with: Dr. Wiggins NIHSS Stroke Scale - Date/Time Evaluation Performed Date Performed: 02/02/19 Time Performed: 10:56 When Was NIHSS Performed: Re-evaluation - How Severe is the Stroke Level of Consciousness: 0=Alert LOC to Questions: 0=Both comments correct LOC to commands: 0=Obeys both correctly Best Gaze: 0=Normal Visual: 0=No visual loss Facial: 0=Normal Motor Arm - Left: 0=No drift Motor Arm - Right: 1=Drift noted before 10 sec (improving compared to yesterday) Motor Leg - Left: 0=No drift Motor Leg - Right: 0=No drift Limb Ataxia: 0=Absent Sensory: 1=Mild to moderate loss (decreased sensation to RUE and RLE; right side face) Best Language: 0=No aphasia Dysarthia: 0=Normal articulation Extinction & Inattention (Neglect): 1=Partial neglect (mild veronique-attention) (rue and rle) Score: 3 Exam - Vital Sign Vital Signs: Temp Pulse Resp BP Pulse Ox 97.7 F 77 18 179/106 H 99 02/02/19 07:54 02/02/19 09:00 02/02/19 07:54 02/02/19 07:54 02/02/19 07:54 Constitutional: No distress, Normal appearing Ophthalmoscopic: absent: papilledema, hemorrhage Right Pupil: Reactive Right Pupil Size (in mm): 2 Left Pupil: Reactive Left Pupil Size (in mm): 2 Cardiovascular: Regular rate & rhythm Mental Status: Normal: Orientation, Memory, Attention, Language, Fund of Knowledge Cranial Nerve: Normal: Visual Louise, Extraocular movement intact, Facial Strength, Hearing, Palate/Tongue Movement, Shoulder Strength. Abnormal: Facial Sensation (decreased to right side) Motor: Tone, Bulk Neuro motor strength exam: Left Upper Extremity: 5 (distal 5/5), Right Upper Extremity: 4 (distal 4/5), Left Lower Extremity: 5 (distal 5/5), Right Lower Extremity: 3 (distal 3/5) Sensation: absent: Intact to pin (decreased to rue and rle) DTR: Patellar Left: 1+, Patellar Right: 1+ Flexor Plantar Reflex: Normal Coordination: absent: Finger/nose (abnormsl right side), Heel/Cortes (abnormal right side) Vascular Risk: Hypertension, Diabetes Mellitus, Smoking, Body Mass Index, Activity, Dietary - Data reviewed Laboratory results: 01/30/19 05:20 01/30/19 05:20 Triglycerides 98 mg/DL (0-149) 01/29/19 04:05 Cholesterol 160 mg/dL (0-199) 01/29/19 04:05 LDL Cholesterol Direct 90 mg/dL (0-129) 01/29/19 04:05 HDL Cholesterol 50 MG/DL (30-70) 01/29/19 04:05 Hemoglobin A1c 9.8 % (4.2-6.5) H 01/29/19 04:05 Assessment and Plan (1) CVA (cerebral vascular accident) Assessment & Plan: Imaging reviewed: -CT Head (repeat; 02/01/19): Evolving acute and nonhemorrhagic infarction affecting left thalamus and adjacent internal capsule. -MRI Brain (01/29/19): 1. Acute left MCA territory infarction involving the posterior thalamus capsular region. 2. 2.0 x 2.7 cm left frontal convexity CSF signal intensity extra-axial mass is statistically most compatible with an arachnoid cyst. 3. Mild chronic microangiopathic changes. 4. Mild age advanced global parenchymal volume loss. -ECHO (01/27/19): EF 60-65%; no ASD, no LV thrombus. -CTA Head and Neck (01/29/19): 1. No large vessel occlusion or significant stenosis demonstrated by CT angiography of the brain. No definite aneurysm or arteriovascular malformation identified either. 2. No significant stenosis bilateral common or internal carotid or bilateral vertebral arteries. 3. Moderate soft plaque left carotid bulb without significant stenosis left ICA. Trace soft plaque right carotid bulb. 4. Three vessel aortic arch appreciated. -CT Head (01/29/19): Trace age related neuro degenerative changes are appreciated. Ventricular system appears upper limits of normal with hydrocephalus not favored. Overall pattern likely a function of mild cerebral atrophy. No evidence of acute or subacute brain infarction. Follow-up CT or MRI are available as clinically warranted. -Continue ASA, Plavix, Statin upon d/c to rehab. -Continue PT/OT. Recommend acute rehab if possible. -Cardiology consultation still pending. -Continue BP control upon d/c to rehab: Norvasc 10 mg PO daily (increased by primary team) and Metoprolol 50 mg PO BID. -Discussed again at length with pt his CVA risk factors, new medications, s/s of worsening in condition and when to notify the RN. -Notify neuro team of any acute changes in pt's condition. Pt is neurologically stable to be d/c to rehab. If pt does not go to [facility] acute rehab, please provide him with Dr. Wiggins's office information and have him make an appt to f/u within 1 month. Otherwise, please reconsult prn. Radha Zhong, RAJEEV, CHECKMAN d/w Dr. Wiggins Status: Acute
[2019-02-02] MEDS: Insulin Lispro (humaLOG) 100 Units/ml Inj SC SCH ×4 (10:58→22:59)
[2019-02-02] MEDS: Alum-Mag Hydrox-Simethicone Susp (30 mL) PO PRN (11:02)
--- NOTE | 2019-02-02 23:35 | CP.PCM.PN ---
Subjective - Date & Time of Evaluation Date of Evaluation: 01/31/19 Objective - Vital Signs/Intake and Output Vital Signs (last 24 hours): Temp Pulse Resp BP Pulse Ox 98.0 F 90 19 141/83 96 02/02/19 15:47 02/02/19 21:39 02/02/19 15:47 02/02/19 21:39 02/02/19 15:47 - Medications Medications: Current Medications Al Hydrox/Mg Hydrox/Simethicone (Maalox Plus 30 Ml) 30 ml PO Q6 PRN PRN Reason: Indigestion / Heartburn Last Admin: 02/02/19 11:02 Dose: 30 ml Amlodipine Besylate (Norvasc) 10 mg PO DAILY [facility] Last Admin: 02/02/19 10:59 Dose: 10 mg Aspirin (Ecotrin) 81 mg PO DAILY [facility] Last Admin: 02/02/19 10:57 Dose: 81 mg Atorvastatin Calcium (Lipitor) 40 mg PO DAILY [facility] Last Admin: 02/02/19 10:58 Dose: 40 mg Clopidogrel Bisulfate (Plavix) 75 mg PO DAILY [facility] Last Admin: 02/02/19 10:59 Dose: 75 mg Insulin Human Lispro (Humalog) 0 units SC [facility]; Protocol Last Admin: 02/02/19 22:59 Dose: Not Given Lactulose (Enulose) 20 gm PO Q12 [facility] Last Admin: 02/02/19 21:38 Dose: Not Given Metformin HCl (Glucophage) 1,000 mg PO BIDWM [facility] Last Admin: 02/02/19 17:21 Dose: 1,000 mg Metoprolol Tartrate (Lopressor) 100 mg PO Q12 [facility] Last Admin: 02/02/19 21:39 Dose: 100 mg - Labs Labs: 01/30/19 05:20 01/30/19 05:20 PT 11.0 Seconds (9.8-13.1) 01/29/19 04:05 INR 1.0 01/29/19 04:05 APTT 28.9 Seconds (25.6-37.1) 01/29/19 04:05
--- NOTE | 2019-02-02 23:35 | CP.PCM.PN ---
Subjective - Date & Time of Evaluation Date of Evaluation: 02/01/19 Objective - Vital Signs/Intake and Output Vital Signs (last 24 hours): Temp Pulse Resp BP Pulse Ox 98.0 F 90 19 141/83 96 02/02/19 15:47 02/02/19 21:39 02/02/19 15:47 02/02/19 21:39 02/02/19 15:47 - Medications Medications: Current Medications Al Hydrox/Mg Hydrox/Simethicone (Maalox Plus 30 Ml) 30 ml PO Q6 PRN PRN Reason: Indigestion / Heartburn Last Admin: 02/02/19 11:02 Dose: 30 ml Amlodipine Besylate (Norvasc) 10 mg PO DAILY [facility] Last Admin: 02/02/19 10:59 Dose: 10 mg Aspirin (Ecotrin) 81 mg PO DAILY [facility] Last Admin: 02/02/19 10:57 Dose: 81 mg Atorvastatin Calcium (Lipitor) 40 mg PO DAILY [facility] Last Admin: 02/02/19 10:58 Dose: 40 mg Clopidogrel Bisulfate (Plavix) 75 mg PO DAILY [facility] Last Admin: 02/02/19 10:59 Dose: 75 mg Insulin Human Lispro (Humalog) 0 units SC [facility]; Protocol Last Admin: 02/02/19 22:59 Dose: Not Given Lactulose (Enulose) 20 gm PO Q12 [facility] Last Admin: 02/02/19 21:38 Dose: Not Given Metformin HCl (Glucophage) 1,000 mg PO BIDWM [facility] Last Admin: 02/02/19 17:21 Dose: 1,000 mg Metoprolol Tartrate (Lopressor) 100 mg PO Q12 [facility] Last Admin: 02/02/19 21:39 Dose: 100 mg - Labs Labs: 01/30/19 05:20 01/30/19 05:20 PT 11.0 Seconds (9.8-13.1) 01/29/19 04:05 INR 1.0 01/29/19 04:05 APTT 28.9 Seconds (25.6-37.1) 01/29/19 04:05
--- NOTE | 2019-02-02 23:36 | CP.PCM.PN ---
Subjective - Date & Time of Evaluation Date of Evaluation: 02/02/19 Objective - Vital Signs/Intake and Output Vital Signs (last 24 hours): Temp Pulse Resp BP Pulse Ox 98.0 F 90 19 141/83 96 02/02/19 15:47 02/02/19 21:39 02/02/19 15:47 02/02/19 21:39 02/02/19 15:47 - Medications Medications: Current Medications Al Hydrox/Mg Hydrox/Simethicone (Maalox Plus 30 Ml) 30 ml PO Q6 PRN PRN Reason: Indigestion / Heartburn Last Admin: 02/02/19 11:02 Dose: 30 ml Amlodipine Besylate (Norvasc) 10 mg PO DAILY [facility] Last Admin: 02/02/19 10:59 Dose: 10 mg Aspirin (Ecotrin) 81 mg PO DAILY [facility] Last Admin: 02/02/19 10:57 Dose: 81 mg Atorvastatin Calcium (Lipitor) 40 mg PO DAILY [facility] Last Admin: 02/02/19 10:58 Dose: 40 mg Clopidogrel Bisulfate (Plavix) 75 mg PO DAILY [facility] Last Admin: 02/02/19 10:59 Dose: 75 mg Insulin Human Lispro (Humalog) 0 units SC [facility]; Protocol Last Admin: 02/02/19 22:59 Dose: Not Given Lactulose (Enulose) 20 gm PO Q12 [facility] Last Admin: 02/02/19 21:38 Dose: Not Given Metformin HCl (Glucophage) 1,000 mg PO BIDWM [facility] Last Admin: 02/02/19 17:21 Dose: 1,000 mg Metoprolol Tartrate (Lopressor) 100 mg PO Q12 [facility] Last Admin: 02/02/19 21:39 Dose: 100 mg - Labs Labs: 01/30/19 05:20 01/30/19 05:20 PT 11.0 Seconds (9.8-13.1) 01/29/19 04:05 INR 1.0 01/29/19 04:05 APTT 28.9 Seconds (25.6-37.1) 01/29/19 04:05
[2019-02-03 07:57] VITALS: RESP 18
[2019-02-03] MEDS: Insulin Lispro (humaLOG) 100 Units/ml Inj SC SCH ×2 (09:03→13:02)
[2019-02-03 12:05] VITALS: BP 130/93; PULSE 76; TEMP 97.2; O2SAT 97
--- NOTE | 2019-02-04 00:52 | CP.PCM.DIS ---
Provider - Provider Date of Admission: 01/29/19 05:35 Attending physician: Karli Rosenberg MD Consults: 01/29/19 03:48 Stroke Team Consult Stat Comment: Consulting Provider: Neurohospitalist Consulting Physician: NEUROHOSP Neurohospitalist for Consult: Duong Wiggins Neurohospitalist for Consult: Higinio Alaniz Reason for Consult: R sided weakness 02/01/19 13:31 Diabetic Education Referral Routine Comment: Physician Instructions: Reason For Exam: acute stroke;HgbA1C elevated;poor dietary choices Time Spent in preparation of Discharge (in minutes): 5 Diagnosis - Discharge Diagnosis (1) Acute CVA (cerebrovascular accident) Status: Acute Priority: High (2) Right hemiparesis Status: Acute Priority: High (3) Diabetes mellitus with hyperglycemia Status: Acute Priority: High (4) Essential (primary) hypertension Status: Chronic Priority: Low Hospital Course - Lab Results Lab Results: Most Recent Lab Values WBC 11.2 K/uL (4.8-10.8) H 01/30/19 05:20 RBC 5.62 Mil/uL (4.40-5.90) 01/30/19 05:20 Hgb 17.1 g/dL (12.0-18.0) 01/30/19 05:20 Hct 50.9 % (35.0-51.0) 01/30/19 05:20 MCV 90.7 fl (80.0-94.0) 01/30/19 05:20 MCH 30.5 pg (27.0-31.0) 01/30/19 05:20 MCHC 33.6 g/dL (33.0-37.0) 01/30/19 05:20 RDW 13.1 % (11.5-14.5) 01/30/19 05:20 Plt Count 154 K/uL (130-400) 01/30/19 05:20 MPV 10.4 fl (7.2-11.7) 01/29/19 04:05 Neut % (Auto) 73.5 % (50.0-75.0) 01/29/19 04:05 Lymph % (Auto) 17.2 % (20.0-40.0) L 01/29/19 04:05 [place] % (Auto) 7.5 % (0.0-10.0) 01/29/19 04:05 Eos % (Auto) 0.7 % (0.0-4.0) 01/29/19 04:05 Baso % (Auto) 1.1 % (0.0-2.0) 01/29/19 04:05 Neut # (Auto) 9.4 K/uL (1.8-7.0) H 01/29/19 04:05 Lymph # (Auto) 2.2 K/uL (1.0-4.3) 01/29/19 04:05 [place] # (Auto) 1.0 K/uL (0.0-0.8) H 01/29/19 04:05 Eos # (Auto) 0.1 K/uL (0.0-0.7) 01/29/19 04:05 Baso # (Auto) 0.1 K/uL (0.0-0.2) 01/29/19 04:05 PT 11.0 Seconds (9.8-13.1) 01/29/19 04:05 INR 1.0 01/29/19 04:05 APTT 28.9 Seconds (25.6-37.1) 01/29/19 04:05 Sodium 135 mmol/l (132-148) 01/30/19 05:20 Potassium 3.4 MMOL/L (3.6-5.0) L 01/30/19 05:20 Chloride 101 mmol/L (98-107) 01/30/19 05:20 Carbon Dioxide 24 mmol/L (22-30) 01/30/19 05:20 Anion Gap 13 (10-20) 01/30/19 05:20 BUN 17 mg/dl (9-20) 01/30/19 05:20 Creatinine 0.6 mg/dl (0.8-1.5) L 01/30/19 05:20 Est GFR ( Amer) > 60 01/30/19 05:20 Est GFR (Non-Af Amer) > 60 01/30/19 05:20 POC Glucose (mg/dL) 301 mg/dL (65-110) H 02/03/19 10:46 Random Glucose 202 mg/dL (75-110) H 01/30/19 05:20 Hemoglobin A1c 9.8 % (4.2-6.5) H 01/29/19 04:05 Calcium 9.5 mg/dL (8.4-10.2) 01/30/19 05:20 Total Bilirubin 0.7 mg/dl (0.2-1.3) 01/29/19 04:05 AST 22 U/L (17-59) 01/29/19 04:05 ALT 27 U/L (21-72) 01/29/19 04:05 Alkaline Phosphatase 100 U/L (38-126) 01/29/19 04:05 Troponin I 0.0180 ng/mL (0.00-0.120) 01/29/19 21:15 Total Protein 7.3 G/DL (6.3-8.2) 01/29/19 04:05 Albumin 4.6 g/dL (3.5-5.0) 01/29/19 04:05 Globulin 2.7 gm/dL (2.2-3.9) 01/29/19 04:05 Albumin/Globulin Ratio 1.7 (1.0-2.1) 01/29/19 04:05 Triglycerides 98 mg/DL (0-149) 01/29/19 04:05 Cholesterol 160 mg/dL (0-199) 01/29/19 04:05 LDL Cholesterol Direct 90 mg/dL (0-129) 01/29/19 04:05 HDL Cholesterol 50 MG/DL (30-70) 01/29/19 04:05 TSH 3rd Generation 2.75 mIU/ML (0.46-4.68) 01/29/19 13:55 Urine Color Yellow (YELLOW) 01/29/19 19:20 Urine Clarity Clear (Clear) 01/29/19 19:20 Urine pH 6.0 (5.0-8.0) 01/29/19 19:20 Ur Specific Talmage 1.040 (1.003-1.030) H 01/29/19 19:20 Urine Protein 30 mg/dL (NEGATIVE) 01/29/19 19:20 Urine Glucose (UA) >=500 mg/dL (NEGATIVE) 01/29/19 19:20 Urine Ketones 80 mg/dL (NEGATIVE) 01/29/19 19:20 Urine Blood Trace (NEGATIVE) 01/29/19 19:20 Urine Nitrate Negative (NEGATIVE) 01/29/19 19:20 Urine Bilirubin Negative (NEGATIVE) 01/29/19 19:20 Urine Urobilinogen 0.2-1.0 mg/dL (0.2-1.0) 01/29/19 19:20 Ur Leukocyte Esterase Neg Jose Cruz/uL (Negative) 01/29/19 19:20 Urine RBC (Auto) 2 /hpf (0-3) 01/29/19 19:20 Urine Microscopic WBC 1 /hpf (0-5) 01/29/19 19:20 Ur Squamous Epith Cells < 1 /hpf (0-5) 01/29/19 19:20 Urine Creatinine 72 mg/dL (20-320) 01/29/19 14:00 Urine Microalbumin 8.8 mg/dL 01/29/19 14:00 Microalb/Creat Ratio 122 (<30) H 01/29/19 14:00 Urine Opiates Screen Negative (NEGATIVE) 01/29/19 09:10 Urine Methadone Screen Negative (NEGATIVE) 01/29/19 09:10 Ur Barbiturates Screen Negative (NEGATIVE) 01/29/19 09:10 Ur Phencyclidine Scrn Negative (NEGATIVE) 01/29/19 09:10 Ur Amphetamines Screen Negative (NEGATIVE) 01/29/19 09:10 U Benzodiazepines Scrn Negative (NEGATIVE) 01/29/19 09:10 U Oth Cocaine Metabols Negative (NEGATIVE) 01/29/19 09:10 U Cannabinoids Screen Positive (NEGATIVE) H 01/29/19 09:10 Blood Type B POSITIVE 01/29/19 04:05 Blood Type Confirm B POSITIVE 01/29/19 12:30 Antibody Screen Negative 01/29/19 04:05 BBK History Checked No verified bt 01/29/19 04:05 Discharge Exam - Head Exam Head Exam: ATRAUMATIC, NORMAL INSPECTION, NORMOCEPHALIC Discharge Plan - Follow Up Plan Condition: FAIR Disposition: REHAB FACILITY/REHAB UNIT Instructions: Stroke (DC), Weakness (ED) Additional Instructions: [facility] CARE VISITING NURSE [phone] Referrals: Higinio Alaniz MD [Medical Doctor] - Karli Rosenberg MD [Staff Provider] -
== END 2019-02-03 16:00 | DRG 65 ==
LOC: H.ER 03:34 → H.ERHOLD 05:35 → H.TEL 12:17
PROVIDERS: ADMIT Internal Medicine; ATTEND Internal Medicine
DX: I63.9 Cerebral infarction, unspecified (principal); G81.91 Hemiplegia, unspecified affecting right dominant side; R29.706 NIHSS score 6; I65.22 Occlusion and stenosis of left carotid artery; E11.65 Type 2 diabetes mellitus with hyperglycemia; I10 Essential (primary) hypertension; F17.210 Nicotine dependence, cigarettes, uncomplicated; Z79.02 Long term (current) use of antithrombotics/antiplatelets; Z79.82 Long term (current) use of aspirin; Z79.84 Long term (current) use of oral hypoglycemic drugs

== ENCOUNTER 2019-02-01 11:15 | Inpatient (IN) | payer BC ==
[2019-02-03 16:24] VITALS: BMI 26.0
[2019-02-03] MEDS ORDERED: Alum-Mag Hydrox-Simethicone Susp (30 mL) PO PRN (16:35)
--- NOTE | 2019-02-03 18:28 | PCM.OPOC ---
Physiatry Overall Plan of Care - Overall Plan of Care Estimated Length of Stay in Weeks: 3 Rehab Impairment: Mobility, Gait, Balance, Coordination Etiologic Diagnosis: Cerebrovascular Accident Rehab/Medical Prognosis: Good - Anticipated Interventions Physical Therapy:: Yes Number of Hours: 1.5 Number of times per week: 6 Number of Week(s) Duration: 3 Occupational Therapy:: Yes Number of Hours: 1.5 Number of times per week: 6 Number of Week(s) Duration: 3 Speech Therapy:: No Recreational Therapy:: Yes Number of Hours: 0.5 Number of times per week: 5 Number of Week(s) Duration: 3 - Therapy Goals Bed Mobility: Independent Ambulation: Independent Functional Positional Changes:: Independent - Functional Status Prior to Admission: Independent Current Status: needs assistance with ADLs and ambulation - Functional Outcomes Functional Outcomes: To be determined - Discharge Plan Identification of Barriers to Discharge: Home Situation Discharge Destination: Home
--- NOTE | 2019-02-03 18:36 | PCM.CPAPS ---
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 He has not had a medical doctor and has now been diagnosed with both DM and HTN and he is a heavy smoker for 17 years. Review of Systems - Constitutional Constitutional: absent: Chills, Excessive Sweating - EENT Eyes: absent: Blurred Vision, Change in Vision Ears: absent: Ear Discharge, Ear Pain Nose/Mouth/Throat: absent: Nasal Congestion - Cardiovascular Cardiovascular: absent: Chest Pain - Respiratory Respiratory: absent: Dyspnea, Wheezing - Gastrointestinal Gastrointestinal: absent: Abdominal Pain, Constipation - Musculoskeletal Musculoskeletal: absent: Back Pain - Integumentary Integumentary: absent: Bleeding Lesions - Neurological Neurological: absent: Abnormal Hearing, Abnormal Movements, Disequilibrium, Dizziness - Psychiatric Psychiatric: absent: Anxiety Past Patient History - Past Medical History & Family History Past Medical History?: Yes - Past Social History Smoking Status: Heavy Smoker > 10 Cigarettes Daily Drugs: Cannabis Home Situation {Lives}: Alone - CARDIAC Hx Cardiac Disorders: Yes Hx Angina: No Hx Atrial Fibrillation: No Hx Cardia Arrhythmia: No Hx Circulatory Problems: No Hx Congestive Heart Failure: No Hx Heart Attack: No Hx Heart Murmur: No Hx Heart Transplant: No Hx Hypercholesterolemia: Yes Hx Hypertension: No Hx Hypotension: Yes Hx Internal Defibrillator: No Hx Mitral Valve Prolapse: No Hx Pacemaker: No Hx Peripheral Edema: No Hx Peripheral Vascular Disease: No - PULMONARY Hx Respiratory Disorders: No Hx Asthma: No Hx Bronchitis: No Hx Chronic Obstructive Pulmonary Disease (COPD): No Hx Emphysema: No Hx Lung Cancer: No Hx Pneumonia: No Hx Pulmonary Edema: No Hx Pulmonary Embolism: No Hx Respiratory Aspiration: No Hx Respiratory Tract Infection: No Hx Sleep Apnea: No Hx Tuberculosis: No - NEUROLOGICAL Hx Neurological Disorder: Yes Hx Alzheimer's Disease: No HX Cerebrovascular Accident: Yes Hx Dementia: No Hx Dizziness: No Hx Meningitis: No Hx Migraine: No Hx Multiple Sclerosis: No Hx Paralysis: No Hx Parkinson's Disease: No Hx Seizures: No Hx Syncope: No Hx Transient Ischemic Attacks (TIA): No Hx Vertigo: No - HEENT Hx HEENT Problems: No Hx Blind: No Hx Cataracts: No Hx Deafness: No Hx Difficulty Chewing: No Hx Epistaxis: No Hx Glaucoma: No Hx Macular Degeneration: No Hx Sinusitis: No - RENAL Hx Chronic Kidney Disease: No Hx Dialysis: No Hx Kidney Stones: No Hx Neurogenic Bladder: No Hx Pyelonephritis: No Hx Renal (Kidney) Cancer: No Hx Renal Failure: No - ENDOCRINE/METABOLIC Hx Endocrine Disorders: No Hx Adrenal Cancer: No Hx Diabetes Insipidus: No Hx Diabetes Mellitus Type 1: No Hx Diabetes Mellitus Type 2: Yes Hx Hyperthyroidism: No Hx Hypothyroidism: No Hx Systemic Lupus Erythematosus: No - HEMATOLOGICAL/ONCOLOGICAL Hx Blood Disorders: No Hx AIDS: No Hx Anemia: No Hx Blood Transfusions: No Hx Blood Transfusion Reaction: No Hx Bruising: No Hx Cancer: No Hx Chemotherapy: No Hx Cirrhosis: No Hx Gum Bleeding: No Hx Hemophilia: No Hx Hepatitis A: No Hx Hepatitis B: No Hx Hepatitis C: No Hx Human Immunodeficiency Virus (HIV): No Hx Leukemia: No Hx Metastesis: No Hx Shingles: No Hx Sickle Cell Disease: No Hx Unexplained Bleeding: No Hx von Willebrand's Disease: No - INTEGUMENTARY Hx Dermatological Problems: No Hx Basil Cell: No Hx Leahy: No Hx Cellulitis: No Hx Eczema: No Hx Melanoma: No Hx Psoriasis: No Hx Squamous Cell: No - MUSCULOSKELETAL/RHEUMATOLOGICAL Hx Musculoskeletal Disorders: Yes Hx Arthritis: No Hx Back Pain: No Hx Degenerative Joint Disease: No Hx Falls: Yes Hx Fractures: No Hx Gout: No Hx Herniated Disk: No Hx Myasthenia Gravis: No Hx Osteoarthritis: No Hx Osteomyelitis: No Hx Osteoporosis: No Hx Rhabdomyolysis: No Hx Rheumatoid Arthritis: No Hx Spinal Stenosis: No Hx Unsteady Gait: Yes - GASTROINTESTINAL Hx Gastrointestinal Disorders: No Hx Bowel Surgery: No Hx Clostridium Difficile: No Hx Colitis: No Hx Colostomy: No Hx Constipation: No Hx Crohn's Disease: No Hx Diarrhea: No Hx Diverticulitis: No Hx Esophageal Varices: No Hx Fatty Liver Disease: No Hx Gall Bladder Disease: No Hx Gastritis: No Hx Gastroesophageal Reflux: No Hx Hemorrhoids: Yes Hx Ileostomy: No Hx Irritable Bowel: No Hx Liver Failure: No Hx Nausea: No Hx Pancreatitis: No HX Swallowing Problems: No Hx Ulcer: No Hx Vomiting: No - GENITOURINARY/GYNECOLOGICAL Hx Genitourinary Disorders: No Hx Bladder Cancer: No Hx Bladder Stone: No Hx Hematuria: No Hx Incontinence: No Hx Prostate Cancer: No Hx Prostate Problems: No Hx Reproductive Disorders: No Hx Sexually Transmitted Disorders: No Hx Urinary Tract Infection: No - PSYCHIATRIC Hx Psychophysiologic Disorder: Yes Hx Anxiety: No Hx Bipolar Disorder: No Hx Depression: No Hx Emotional Abuse: No Hx Hallucinations: No Hx Panic Symptoms: No Hx Paranoia: No Hx Post Traumatic Stress Disorder: No Hx Psychosis: No Hx Physical Abuse: No Hx Schizophrenia: No Hx Sexual Abuse: No Hx Substance Use: Yes (marijunana) - SURGICAL HISTORY Hx Surgeries: Yes Hx Abdominal Aortic Aneurysm Repair: No Hx Amputation: No Hx Angiogram: No Hx Angioplasty: No Hx Appendectomy: Yes (at age 12) Hx Arteriovenous Shunt: No Hx Arthroscopy: No Hx Bile Duct Stent: No Hx Breast Biopsy: No Hx Cataract Extraction: No Hx Cardiac Catheterization: No Hx Carotid Endarterectomy: No Hx Section: No Hx Cholecystectomy: No Hx Coronary Artery Bypass Graft: No Hx Coronary Stent: No Hx Dilation and Curettage: No Hx Eye Surgery: No Hx Femoral-Popliteal Bypass Graft: No Hx Gastric Bypass Surgery: No Hx Hysterectomy: No Hx Joint Replacement: No Hx Kidney Transplant: No Hx Liver Transplant: No Hx Mastectomy: No Hx Musculoskeletal Surgery: No Hx Open Heart Surgery: No Hx Open Reduction Internal Fixation: No Hx Orthopedic Surgery: No Hx Parathyroidectomy: No Hx Penile Implant: No Hx Pulmonary Surgery: No Hx Splenectomy: No Hx Thyroidectomy: No Hx Tonsillectomy: No Hx Tubal Ligation: No Hx Valve Replacement: No Hx Vascular Surgery: No Hx Vascular Access Device: No - ANESTHESIA Hx Anesthesia: Yes Hx Anesthesia Reactions: No Hx Malignant Hyperthermia: No Has any member of the family had a problem w/ anesthesia?: No Meds Allergies/Adverse Reactions: Allergies Allergy/AdvReac Type Severity Reaction Status Date / Time No Known Allergies Allergy Verified 01/29/19 03:48 - Medications Medications: Current Medications Al Hydrox/Mg Hydrox/Simethicone (Maalox Plus 30 Ml) 30 ml PO Q6 PRN PRN Reason: GI distress Amlodipine Besylate (Norvasc) 10 mg PO DAILY [facility] Aspirin (Ecotrin) 81 mg PO DAILY [facility] Atorvastatin Calcium (Lipitor) 40 mg PO DAILY [facility] Clopidogrel Bisulfate (Plavix) 75 mg PO DAILY [facility] Enoxaparin Sodium (Lovenox) 40 mg SC DAILY [facility]; Protocol Influenza Virus Vaccine (Flucelvax Quad [id number] Syr) 60 mcg IM .ONCE ONE Stop: 02/03/19 20:01 Insulin Human Lispro (Humalog) 0 units SC ACHS [facility]; Protocol Lactulose (Enulose) 20 gm PO 12 [facility] Metformin HCl (Glucophage) 1,000 mg PO BIDWM [facility] Last Admin: 02/03/19 18:19 Dose: 1,000 mg Metoprolol Tartrate (Lopressor) 100 mg PO Q12 [facility] Pneumococcal Polyvalent Vaccine (Pneumovax 23 Vaccine) 0.5 ml IM .ONCE ONE Stop: 02/03/19 20:01 Physical Exam - Constitutional Appears: Non-toxic, No Acute Distress - Head Exam Head Exam: ATRAUMATIC, NORMAL INSPECTION, NORMOCEPHALIC - Eye Exam Eye Exam: EOMI - ENT Exam ENT Exam: Mucous Membranes Moist - Respiratory Exam Respiratory Exam: NORMAL BREATHING PATTERN - Cardiovascular Exam Cardiovascular Exam: REGULAR RHYTHM - GI/Abdominal Exam GI & Abdominal Exam: Soft. absent: Distended - Extremities Exam Extremities exam: Negative for: calf tenderness - Neurological Exam Neurological exam: Alert, CN II-XII Intact, Oriented x3 - Psychiatric Exam Psychiatric exam: Normal Affect, Normal Mood - Skin Skin Exam: Warm Results - Vital Signs Recent Vital Signs: Last Vital Signs Temp Pulse 95 H 02/03/19 16:50 Resp 18 02/03/19 16:50 BP Pulse Ox 98 02/03/19 16:50 - Labs Labs: Laboratory Results - last 24 hr 02/03/19 18:15 POC Glucose (mg/dL) 171 H Assessment & Plan - Assessment and Plan (Free Text) Assessment: 58 year old male non-compliant for many years with any doctor's care PT/OT to continue to help increase functional independence Team conference for d/c planning Pain: controlled Vascular: no evidence of DVT GI: No evidence of constipation or diarrhea Patient is an excellent acute rehabilitation candidate and will have focused , PT, OT and recreational therapy to help facilitate a safe and appropriate d/c plan I spent a great deal of time discussing the needs to stop smoking, follow up with PMD and get colonoscopy, learn diabetic care and HTN diet related issues - Functional Status Prior to Admission: independent Current Status: needs assistance with ADLs and ambulation Impairment Code: 01.2
[2019-02-03] MEDS ORDERED: Influenza Vaccine 60 mcg/0.5 mL SYR (4YR UP) IM ONE (20:00)
[2019-02-03] MEDS ORDERED: Influenza Vaccine (5 YR UP)/PF 60 MCG/0.5 ML SYR IM ONE (20:00)
[2019-02-03] MEDS ORDERED: Pneumococcal 23-Valent Vaccine IM ONE (20:00)
[2019-02-03] MEDS: Insulin Lispro (humaLOG) 100 Units/ml Inj SC SCH (21:14)
[2019-02-04 06:40] LABS: HEMOGLOBIN 16.7 g/dL (12.0-18.0); MEAN CELL VOLUME 88.9 fl (80.0-94.0); MEAN CORPUSCULAR HGB CONC 34.8 g/dL (33.0-37.0); RBC 5.39 Mil/uL (4.40-5.90); WHITE BLOOD COUNT 10.7 K/uL (4.8-10.8)
[2019-02-04 07:04] LABS: BLOOD UREA NITROGEN 35 mg/dl (9-20); CALCIUM 9.2 mg/dL (8.4-10.2); GFR NON-AFRICAN AMERICAN > 60
[2019-02-04] MEDS: Insulin Lispro (humaLOG) 100 Units/ml Inj SC SCH ×4 (07:40→22:37)
[2019-02-04] MEDS: Enoxaparin 40 mg Syringe SC SCH (08:40)
--- NOTE | 2019-02-04 10:11 | CP.PCM.CON ---
History of Present Illness - History of Present Illness History of Present Illness: CC: Elognated toenails after stroke A 58 years old male with no PMHx seen and evaluated with elongated painful toenails. Patient is admitted for stroke with right sided weakness since Friday. Denies pain to his feet. Denies any other pedal complains. Patient denies any chest pain, shortness of breath or alcohol. Active smoker.Denies going to the doctor regularly Pmhx: diabetes, htn pshx: appendectomy allergies: NFKDA Past Patient History - Past Medical History & Family History Past Medical History?: Yes - Past Social History Smoking Status: Heavy Smoker > 10 Cigarettes Daily Drugs: Cannabis Home Situation {Lives}: Alone - CARDIAC Hx Cardiac Disorders: Yes Hx Angina: No Hx Atrial Fibrillation: No Hx Cardia Arrhythmia: No Hx Circulatory Problems: No Hx Congestive Heart Failure: No Hx Heart Attack: No Hx Heart Murmur: No Hx Heart Transplant: No Hx Hypercholesterolemia: Yes Hx Hypertension: No Hx Hypotension: Yes Hx Internal Defibrillator: No Hx Mitral Valve Prolapse: No Hx Pacemaker: No Hx Peripheral Edema: No Hx Peripheral Vascular Disease: No - PULMONARY Hx Respiratory Disorders: No Hx Asthma: No Hx Bronchitis: No Hx Chronic Obstructive Pulmonary Disease (COPD): No Hx Emphysema: No Hx Lung Cancer: No Hx Pneumonia: No Hx Pulmonary Edema: No Hx Pulmonary Embolism: No Hx Respiratory Aspiration: No Hx Respiratory Tract Infection: No Hx Sleep Apnea: No Hx Tuberculosis: No - NEUROLOGICAL Hx Neurological Disorder: Yes Hx Alzheimer's Disease: No HX Cerebrovascular Accident: Yes Hx Dementia: No Hx Dizziness: No Hx Meningitis: No Hx Migraine: No Hx Multiple Sclerosis: No Hx Paralysis: No Hx Parkinson's Disease: No Hx Seizures: No Hx Syncope: No Hx Transient Ischemic Attacks (TIA): No Hx Vertigo: No - HEENT Hx HEENT Problems: No Hx Blind: No Hx Cataracts: No Hx Deafness: No Hx Difficulty Chewing: No Hx Epistaxis: No Hx Glaucoma: No Hx Macular Degeneration: No Hx Sinusitis: No - RENAL Hx Chronic Kidney Disease: No Hx Dialysis: No Hx Kidney Stones: No Hx Neurogenic Bladder: No Hx Pyelonephritis: No Hx Renal (Kidney) Cancer: No Hx Renal Failure: No - ENDOCRINE/METABOLIC Hx Endocrine Disorders: No Hx Adrenal Cancer: No Hx Diabetes Insipidus: No Hx Diabetes Mellitus Type 1: No Hx Diabetes Mellitus Type 2: Yes Hx Hyperthyroidism: No Hx Hypothyroidism: No Hx Systemic Lupus Erythematosus: No - HEMATOLOGICAL/ONCOLOGICAL Hx Blood Disorders: No Hx AIDS: No Hx Anemia: No Hx Blood Transfusions: No Hx Blood Transfusion Reaction: No Hx Bruising: No Hx Cancer: No Hx Chemotherapy: No Hx Cirrhosis: No Hx Gum Bleeding: No Hx Hemophilia: No Hx Hepatitis A: No Hx Hepatitis B: No Hx Hepatitis C: No Hx Human Immunodeficiency Virus (HIV): No Hx Leukemia: No Hx Metastesis: No Hx Shingles: No Hx Sickle Cell Disease: No Hx Unexplained Bleeding: No Hx von Willebrand's Disease: No - INTEGUMENTARY Hx Dermatological Problems: No Hx Basil Cell: No Hx Leahy: No Hx Cellulitis: No Hx Eczema: No Hx Melanoma: No Hx Psoriasis: No Hx Squamous Cell: No - MUSCULOSKELETAL/RHEUMATOLOGICAL Hx Musculoskeletal Disorders: Yes Hx Arthritis: No Hx Back Pain: No Hx Degenerative Joint Disease: No Hx Falls: Yes Hx Fractures: No Hx Gout: No Hx Herniated Disk: No Hx Myasthenia Gravis: No Hx Osteoarthritis: No Hx Osteomyelitis: No Hx Osteoporosis: No Hx Rhabdomyolysis: No Hx Rheumatoid Arthritis: No Hx Spinal Stenosis: No Hx Unsteady Gait: Yes - GASTROINTESTINAL Hx Gastrointestinal Disorders: No Hx Bowel Surgery: No Hx Clostridium Difficile: No Hx Colitis: No Hx Colostomy: No Hx Constipation: No Hx Crohn's Disease: No Hx Diarrhea: No Hx Diverticulitis: No Hx Esophageal Varices: No Hx Fatty Liver Disease: No Hx Gall Bladder Disease: No Hx Gastritis: No Hx Gastroesophageal Reflux: No Hx Hemorrhoids: Yes Hx Ileostomy: No Hx Irritable Bowel: No Hx Liver Failure: No Hx Nausea: No Hx Pancreatitis: No HX Swallowing Problems: No Hx Ulcer: No Hx Vomiting: No - GENITOURINARY/GYNECOLOGICAL Hx Genitourinary Disorders: No Hx Bladder Cancer: No Hx Bladder Stone: No Hx Hematuria: No Hx Incontinence: No Hx Prostate Cancer: No Hx Prostate Problems: No Hx Reproductive Disorders: No Hx Sexually Transmitted Disorders: No Hx Urinary Tract Infection: No - PSYCHIATRIC Hx Psychophysiologic Disorder: Yes Hx Anxiety: No Hx Bipolar Disorder: No Hx Depression: No Hx Emotional Abuse: No Hx Hallucinations: No Hx Panic Symptoms: No Hx Paranoia: No Hx Post Traumatic Stress Disorder: No Hx Psychosis: No Hx Physical Abuse: No Hx Schizophrenia: No Hx Sexual Abuse: No Hx Substance Use: Yes (marijunana) - SURGICAL HISTORY Hx Surgeries: Yes Hx Abdominal Aortic Aneurysm Repair: No Hx Amputation: No Hx Angiogram: No Hx Angioplasty: No Hx Appendectomy: Yes (at age 12) Hx Arteriovenous Shunt: No Hx Arthroscopy: No Hx Bile Duct Stent: No Hx Breast Biopsy: No Hx Cataract Extraction: No Hx Cardiac Catheterization: No Hx Carotid Endarterectomy: No Hx Section: No Hx Cholecystectomy: No Hx Coronary Artery Bypass Graft: No Hx Coronary Stent: No Hx Dilation and Curettage: No Hx Eye Surgery: No Hx Femoral-Popliteal Bypass Graft: No Hx Gastric Bypass Surgery: No Hx Hysterectomy: No Hx Joint Replacement: No Hx Kidney Transplant: No Hx Liver Transplant: No Hx Mastectomy: No Hx Musculoskeletal Surgery: No Hx Open Heart Surgery: No Hx Open Reduction Internal Fixation: No Hx Orthopedic Surgery: No Hx Parathyroidectomy: No Hx Penile Implant: No Hx Pulmonary Surgery: No Hx Splenectomy: No Hx Thyroidectomy: No Hx Tonsillectomy: No Hx Tubal Ligation: No Hx Valve Replacement: No Hx Vascular Surgery: No Hx Vascular Access Device: No - ANESTHESIA Hx Anesthesia: Yes Hx Anesthesia Reactions: No Hx Malignant Hyperthermia: No Has any member of the family had a problem w/ anesthesia?: No Meds Allergies/Adverse Reactions: Allergies Allergy/AdvReac Type Severity Reaction Status Date / Time No Known Allergies Allergy Verified 01/29/19 03:48 - Medications Medications: Current Medications Al Hydrox/Mg Hydrox/Simethicone (Maalox Plus 30 Ml) 30 ml PO Q6 PRN PRN Reason: GI distress Amlodipine Besylate (Norvasc) 10 mg PO DAILY [facility] Last Admin: 02/04/19 08:41 Dose: 10 mg Aspirin (Ecotrin) 81 mg PO DAILY [facility] Last Admin: 02/04/19 08:41 Dose: 81 mg Atorvastatin Calcium (Lipitor) 40 mg PO DAILY [facility] Last Admin: 02/04/19 08:39 Dose: 40 mg Clopidogrel Bisulfate (Plavix) 75 mg PO DAILY [facility] Last Admin: 02/04/19 08:43 Dose: 75 mg Enoxaparin Sodium (Lovenox) 40 mg SC DAILY [facility]; Protocol Last Admin: 02/04/19 08:40 Dose: 40 mg Insulin Human Lispro (Humalog) 0 units SC [facility]; Protocol Last Admin: 02/04/19 07:40 Dose: 2 unit Lactulose (Enulose) 20 gm PO 12 [facility] Metformin HCl (Glucophage) 1,000 mg PO BIDWM [facility] Last Admin: 02/04/19 08:41 Dose: 1,000 mg Metoprolol Tartrate (Lopressor) 100 mg PO Q12 [facility] Last Admin: 02/04/19 08:40 Dose: 100 mg Physical Exam - Constitutional Appears: Well, Non-toxic, No Acute Distress - Head Exam Head Exam: ATRAUMATIC, NORMOCEPHALIC - Eye Exam Eye Exam: Normal appearance - ENT Exam ENT Exam: Mucous Membranes Moist - Extremities Exam Additional comments: Bilateral lower extremity exam: vascular: dp/pt pulses palpable, CFT <3 secs x 10, tg warm to warm, no edema or ecchymosis noted ortho: pain on palpation to the nails x10 neuro: protective sensation intact via ipswich / b/l derm: painful elongated toenails x 10, multiple abrasions noted on the lateral aspect of b/l ankles - Neurological Exam Neurological exam: Alert, Oriented x3 Results - Vital Signs Recent Vital Signs: Last Vital Signs Temp 97.7 F 02/04/19 09:58 Pulse 81 02/04/19 09:58 Resp 19 02/04/19 09:58 BP 137/77 02/04/19 09:58 Pulse Ox 97 02/04/19 09:58 - Labs Result Diagrams: 02/04/19 05:30 02/04/19 05:30 Labs: Laboratory Results - last 24 hr 02/03/19 02/03/19 02/04/19 18:15 20:43 05:30 WBC 10.7 RBC 5.39 Hgb 16.7 Hct 47.9 MCV 88.9 MCH 31.0 MCHC 34.8 RDW 13.0 Plt Count 168 Sodium Potassium Chloride Carbon Dioxide Anion Gap BUN Creatinine Est GFR ( Amer) Est GFR (Non-Af Amer) POC Glucose (mg/dL) 171 H 201 H Random Glucose Calcium 02/04/19 02/04/19 05:30 05:38 WBC RBC Hgb Hct MCV MCH MCHC RDW Plt Count Sodium 131 L Potassium 3.6 Chloride 99 Carbon Dioxide 22 Anion Gap 14 BUN 35 H Creatinine 0.8 Est GFR ( Amer) > 60 Est GFR (Non-Af Amer) > 60 POC Glucose (mg/dL) 163 H Random Glucose 184 H Calcium 9.2 Assessment & Plan - Assessment and Plan (Free Text) Assessment: 58 yo male seen and evaluated with pmhx of stroke for painful elongated toenails Plan: Patient seen and evaluated chart, labs and vitals reviewed patient discussed in detail with the attending sterile nail nippers used to debride toenails x10 patient tolerated no complications thank you for the consult podiatry will now sign off; please reconsult as necessary
[2019-02-04 18:58] LABS: OSMOLALITY,URINE 906 mosm/kg (300-1000)
[2019-02-04] MEDS: Sodium Chloride 0.9% 1,000 ML IV SCH (19:58)
[2019-02-05] MEDS: Sodium Chloride 0.9% 1,000 ML IV SCH ×2 (06:17→19:00)
[2019-02-05] MEDS: Insulin Lispro (humaLOG) 100 Units/ml Inj SC SCH ×4 (08:27→21:40)
[2019-02-05] MEDS: Enoxaparin 40 mg Syringe SC SCH (08:28)
[2019-02-06] MEDS: Sodium Chloride 0.9% 1,000 ML IV SCH ×3 (02:00→21:23)
[2019-02-06] MEDS: Insulin Lispro (humaLOG) 100 Units/ml Inj SC SCH ×4 (07:30→21:19)
[2019-02-06] MEDS: Enoxaparin 40 mg Syringe SC SCH (08:17)
--- NOTE | 2019-02-06 15:06 | CP.PCM.PN ---
Subjective - Date & Time of Evaluation Date of Evaluation: 02/06/19 Time of Evaluation: 09:00 - Subjective Subjective: patient with no acute complaints , alert friendly Objective - Vital Signs/Intake and Output Vital Signs (last 24 hours): Temp Pulse Resp BP Pulse Ox 98 F 78 20 140/90 98 02/06/19 09:00 02/06/19 09:00 02/06/19 09:00 02/06/19 09:00 02/06/19 09:00 Intake and Output: 02/06/19 02/06/19 06:59 18:59 Intake Total 1600 Output Total 1000 Balance 600 - Medications Medications: Current Medications Al Hydrox/Mg Hydrox/Simethicone (Maalox Plus 30 Ml) 30 ml PO Q6 PRN PRN Reason: GI distress Amlodipine Besylate (Norvasc) 10 mg PO DAILY [facility] Last Admin: 02/06/19 08:19 Dose: 10 mg Aspirin (Ecotrin) 81 mg PO DAILY [facility] Last Admin: 02/06/19 08:18 Dose: 81 mg Atorvastatin Calcium (Lipitor) 40 mg PO DAILY [facility] Last Admin: 02/06/19 09:00 Dose: 40 mg Clopidogrel Bisulfate (Plavix) 75 mg PO DAILY [facility] Last Admin: 02/06/19 13:05 Dose: 75 mg Enoxaparin Sodium (Lovenox) 40 mg SC DAILY [facility]; Protocol Last Admin: 02/06/19 08:17 Dose: 40 mg Sodium Chloride (Sodium Chloride 0.9%) 1,000 mls @ 100 mls/hr IV .Q10H [facility] Stop: 02/07/19 20:01 Last Admin: 02/06/19 12:59 Dose: Not Given Insulin Human Lispro (Humalog) 0 units SC [facility]; Protocol Last Admin: 02/06/19 11:30 Dose: 3 unit Lactulose (Enulose) 20 gm PO Q12 [facility] Metformin HCl (Glucophage) 1,000 mg PO BIDWM [facility] Last Admin: 02/06/19 08:20 Dose: 1,000 mg Metoprolol Tartrate (Lopressor) 100 mg PO Q12 [facility] Last Admin: 02/06/19 08:18 Dose: 100 mg - Labs Labs: 02/04/19 05:30 02/04/19 05:30 - Constitutional Appears: Well - Head Exam Head Exam: ATRAUMATIC, NORMAL INSPECTION, NORMOCEPHALIC - Eye Exam Eye Exam: EOMI, Normal appearance, PERRL Pupil Exam: NORMAL ACCOMODATION, PERRL - ENT Exam ENT Exam: Mucous Membranes Moist, Normal Exam - Neck Exam Neck Exam: Full ROM - Respiratory Exam Respiratory Exam: NORMAL BREATHING PATTERN - Cardiovascular Exam Cardiovascular Exam: REGULAR RHYTHM - GI/Abdominal Exam GI & Abdominal Exam: Normal Bowel Sounds - Rectal Exam Rectal Exam: NORMAL INSPECTION - Exam External exam: NORMAL EXTERNAL EXAM - Extremities Exam Extremities Exam: Full ROM - Back Exam Back Exam: NORMAL INSPECTION - Neurological Exam Neurological Exam: Alert Neuro motor strength exam: Left Upper Extremity: 3, Right Upper Extremity: 2/1, Left Lower Extremity: 3, Right Lower Extremity: 2/1 - Psychiatric Exam Psychiatric exam: Normal Mood - Skin Skin Exam: Normal Color Assessment and Plan (1) Acute CVA (cerebrovascular accident) Assessment & Plan: plan for physical, occupational , rec therapy covering for Dr Brown Status: Acute (2) Diabetes mellitus with hyperglycemia Status: Acute (3) Right hemiparesis Status: Acute (4) Essential (primary) hypertension Status: Chronic
[2019-02-07 07:46] LABS: MEAN CELL VOLUME 88.2 fl (80.0-94.0); MEAN CORPUSCULAR HEMOGLOBIN 31.3 pg (27.0-31.0); MEAN CORPUSCULAR HGB CONC 35.4 g/dL (33.0-37.0); RBC 4.8 Mil/uL (4.40-5.90); RED CELL DISTRIBUTION WIDTH 12.5 % (11.5-14.5); WHITE BLOOD COUNT 8.8 K/uL (4.8-10.8)
[2019-02-07] MEDS: Insulin Lispro (humaLOG) 100 Units/ml Inj SC SCH ×4 (08:03→21:11)
[2019-02-07 08:04] LABS: ALB/GLOB RATIO 1.4 (1.0-2.1); ALBUMIN 3.4 g/dL (3.5-5.0); ALT/SGPT 26 U/L (21-72); AST/SGOT 12 U/L (17-59); BLOOD UREA NITROGEN 13 mg/dl (9-20); CALCIUM 8.8 mg/dL (8.4-10.2); GFR NON-AFRICAN AMERICAN > 60
[2019-02-07] MEDS: Enoxaparin 40 mg Syringe SC SCH (08:08)
[2019-02-07] MEDS: Sodium Chloride 0.9% 1,000 ML IV SCH ×2 (08:13→19:29)
[2019-02-07] MEDS ORDERED: Potassium Chloride 20 mEq ER Tab PO ONE (10:49)
--- NOTE | 2019-02-07 23:26 | CP.PCM.PN ---
Subjective - Date & Time of Evaluation Date of Evaluation: 02/05/19 Time of Evaluation: 18:15 - Subjective Subjective: Seen and examined at the bed side. No new complaint. Continue to improve. Objective - Vital Signs/Intake and Output Vital Signs (last 24 hours): Temp Pulse Resp BP Pulse Ox 97.2 F L 75 19 169/86 H 98 02/07/19 09:54 02/07/19 21:23 02/07/19 09:54 02/07/19 21:23 02/07/19 09:54 Intake and Output: 02/07/19 02/08/19 18:59 06:59 Intake Total 600 Output Total 980 Balance -380 - Medications Medications: Current Medications Al Hydrox/Mg Hydrox/Simethicone (Maalox Plus 30 Ml) 30 ml PO Q6 PRN PRN Reason: GI distress Amlodipine Besylate (Norvasc) 10 mg PO DAILY [facility] Last Admin: 02/07/19 08:06 Dose: 10 mg Aspirin (Ecotrin) 81 mg PO DAILY [facility] Last Admin: 02/07/19 08:07 Dose: 81 mg Atorvastatin Calcium (Lipitor) 40 mg PO DAILY [facility] Last Admin: 02/07/19 08:07 Dose: 40 mg Clopidogrel Bisulfate (Plavix) 75 mg PO DAILY [facility] Last Admin: 02/07/19 08:17 Dose: 75 mg Enoxaparin Sodium (Lovenox) 40 mg SC DAILY [facility]; Protocol Insulin Human Lispro (Humalog) 0 units SC [facility]; Protocol Last Admin: 02/07/19 21:11 Dose: Not Given Lactulose (Enulose) 20 gm PO Q12 [facility] Last Admin: 02/07/19 21:22 Dose: Not Given Metformin HCl (Glucophage) 1,000 mg PO BIDWM [facility] Last Admin: 02/07/19 17:04 Dose: 1,000 mg Metoprolol Tartrate (Lopressor) 100 mg PO Q12 [facility] Last Admin: 02/07/19 21:23 Dose: 100 mg - Labs Labs: 02/07/19 06:00 02/07/19 06:00 - Neurological Exam Neuro motor strength exam: Left Upper Extremity: 5, Right Upper Extremity: 3, Left Lower Extremity: 5, Right Lower Extremity: 4 Assessment and Plan (1) Acute CVA (cerebrovascular accident) Status: Acute (2) Right hemiparesis Status: Acute (3) Diabetes mellitus with hyperglycemia Status: Acute (4) Essential (primary) hypertension Status: Chronic - Assessment and Plan (Free Text) Plan: Continue Current Care
--- NOTE | 2019-02-07 23:26 | CP.PCM.HP ---
History of Present Illness - History of Present Illness History of Present Illness: CC: Acute CVA HPI: A 58 years old male with no PMHx presents to ER for evaluation of right sided weakness and numbness, and admitted to Tele for Acute CVA with Right Hemiparesis, and discharged to Acute Rehab. Passed swallow evaluation. Present on Admission - Present on Admission Any Indicators Present on Admission: No Review of Systems - Review of Systems All systems: reviewed and no additional remarkable complaints except Review of Systems: as per HPI Past Patient History - Past Medical History & Family History Past Medical History?: Yes - Past Social History Smoking Status: Heavy Smoker > 10 Cigarettes Daily Drugs: Cannabis Home Situation {Lives}: Alone - CARDIAC Hx Hypertension: Yes - PULMONARY Hx Respiratory Disorders: No Hx Asthma: No Hx Bronchitis: No Hx Chronic Obstructive Pulmonary Disease (COPD): No Hx Emphysema: No Hx Lung Cancer: No Hx Pneumonia: No Hx Pulmonary Edema: No Hx Pulmonary Embolism: No Hx Respiratory Aspiration: No Hx Respiratory Tract Infection: No Hx Sleep Apnea: No Hx Tuberculosis: No - NEUROLOGICAL Hx Neurological Disorder: Yes Hx Alzheimer's Disease: No HX Cerebrovascular Accident: Yes Hx Dementia: No Hx Dizziness: No Hx Meningitis: No Hx Migraine: No Hx Multiple Sclerosis: No Hx Paralysis: No Hx Parkinson's Disease: No Hx Seizures: No Hx Syncope: No Hx Transient Ischemic Attacks (TIA): No Hx Vertigo: No - HEENT Hx HEENT Problems: No Hx Blind: No Hx Cataracts: No Hx Deafness: No Hx Difficulty Chewing: No Hx Epistaxis: No Hx Glaucoma: No Hx Macular Degeneration: No Hx Sinusitis: No - RENAL Hx Chronic Kidney Disease: No Hx Dialysis: No Hx Kidney Stones: No Hx Neurogenic Bladder: No Hx Pyelonephritis: No Hx Renal (Kidney) Cancer: No Hx Renal Failure: No - ENDOCRINE/METABOLIC Hx Diabetes Mellitus Type 2: Yes - HEMATOLOGICAL/ONCOLOGICAL Hx Blood Disorders: No Hx AIDS: No Hx Anemia: No Hx Blood Transfusions: No Hx Blood Transfusion Reaction: No Hx Bruising: No Hx Cancer: No Hx Chemotherapy: No Hx Cirrhosis: No Hx Gum Bleeding: No Hx Hemophilia: No Hx Hepatitis A: No Hx Hepatitis B: No Hx Hepatitis C: No Hx Human Immunodeficiency Virus (HIV): No Hx Leukemia: No Hx Metastesis: No Hx Shingles: No Hx Sickle Cell Disease: No Hx Unexplained Bleeding: No Hx von Willebrand's Disease: No - INTEGUMENTARY Hx Dermatological Problems: No Hx Basil Cell: No Hx Leahy: No Hx Cellulitis: No Hx Eczema: No Hx Melanoma: No Hx Psoriasis: No Hx Squamous Cell: No - MUSCULOSKELETAL/RHEUMATOLOGICAL Hx Musculoskeletal Disorders: Yes Hx Arthritis: No Hx Back Pain: No Hx Degenerative Joint Disease: No Hx Falls: Yes Hx Fractures: No Hx Gout: No Hx Herniated Disk: No Hx Myasthenia Gravis: No Hx Osteoarthritis: No Hx Osteomyelitis: No Hx Osteoporosis: No Hx Rhabdomyolysis: No Hx Rheumatoid Arthritis: No Hx Spinal Stenosis: No Hx Unsteady Gait: Yes - GASTROINTESTINAL Hx Gastrointestinal Disorders: No Hx Bowel Surgery: No Hx Clostridium Difficile: No Hx Colitis: No Hx Colostomy: No Hx Constipation: No Hx Crohn's Disease: No Hx Diarrhea: No Hx Diverticulitis: No Hx Esophageal Varices: No Hx Fatty Liver Disease: No Hx Gall Bladder Disease: No Hx Gastritis: No Hx Gastroesophageal Reflux: No Hx Hemorrhoids: Yes Hx Ileostomy: No Hx Irritable Bowel: No Hx Liver Failure: No Hx Nausea: No Hx Pancreatitis: No HX Swallowing Problems: No Hx Ulcer: No Hx Vomiting: No - GENITOURINARY/GYNECOLOGICAL Hx Genitourinary Disorders: No Hx Bladder Cancer: No Hx Bladder Stone: No Hx Hematuria: No Hx Incontinence: No Hx Prostate Cancer: No Hx Prostate Problems: No Hx Reproductive Disorders: No Hx Sexually Transmitted Disorders: No Hx Urinary Tract Infection: No - PSYCHIATRIC Hx Psychophysiologic Disorder: Yes Hx Anxiety: No Hx Bipolar Disorder: No Hx Depression: No Hx Emotional Abuse: No Hx Hallucinations: No Hx Panic Symptoms: No Hx Paranoia: No Hx Post Traumatic Stress Disorder: No Hx Psychosis: No Hx Physical Abuse: No Hx Schizophrenia: No Hx Sexual Abuse: No Hx Substance Use: Yes (marijunana) - SURGICAL HISTORY Hx Surgeries: Yes Hx Abdominal Aortic Aneurysm Repair: No Hx Amputation: No Hx Angiogram: No Hx Angioplasty: No Hx Appendectomy: Yes (at age 12) Hx Arteriovenous Shunt: No Hx Arthroscopy: No Hx Bile Duct Stent: No Hx Breast Biopsy: No Hx Cataract Extraction: No Hx Cardiac Catheterization: No Hx Carotid Endarterectomy: No Hx Section: No Hx Cholecystectomy: No Hx Coronary Artery Bypass Graft: No Hx Coronary Stent: No Hx Dilation and Curettage: No Hx Eye Surgery: No Hx Femoral-Popliteal Bypass Graft: No Hx Gastric Bypass Surgery: No Hx Hysterectomy: No Hx Joint Replacement: No Hx Kidney Transplant: No Hx Liver Transplant: No Hx Mastectomy: No Hx Musculoskeletal Surgery: No Hx Open Heart Surgery: No Hx Open Reduction Internal Fixation: No Hx Orthopedic Surgery: No Hx Parathyroidectomy: No Hx Penile Implant: No Hx Pulmonary Surgery: No Hx Splenectomy: No Hx Thyroidectomy: No Hx Tonsillectomy: No Hx Tubal Ligation: No Hx Valve Replacement: No Hx Vascular Surgery: No Hx Vascular Access Device: No - ANESTHESIA Hx Anesthesia: Yes Hx Anesthesia Reactions: No Hx Malignant Hyperthermia: No Has any member of the family had a problem w/ anesthesia?: No Meds Allergies/Adverse Reactions: Allergies Allergy/AdvReac Type Severity Reaction Status Date / Time No Known Allergies Allergy Verified 01/29/19 03:48 Physical Exam - Constitutional Appears: Well, No Acute Distress - Head Exam Head Exam: ATRAUMATIC, NORMAL INSPECTION, NORMOCEPHALIC - Eye Exam Eye Exam: EOMI, Normal appearance, PERRL Pupil Exam: NORMAL ACCOMODATION, PERRL - ENT Exam ENT Exam: Mucous Membranes Moist, Normal Exam - Neck Exam Neck exam: Positive for: Normal Inspection - Respiratory Exam Respiratory Exam: Clear to Auscultation Bilateral, NORMAL BREATHING PATTERN - Cardiovascular Exam Cardiovascular Exam: REGULAR RHYTHM, +S1, +S2 - GI/Abdominal Exam GI & Abdominal Exam: Normal Bowel Sounds, Soft. absent: Tenderness - Extremities Exam Extremities exam: Positive for: normal capillary refill, normal inspection - Back Exam Back exam: NORMAL INSPECTION - Neurological Exam Neurological exam: Abnormal Gait, Alert, CN II-XII Intact, Motor Sensory Deficit, Oriented x3 Additional comments: Right Hemiparesis with Power 2-3/5 in right Upper extremities and 3-4/5 n right Lower Extremities. - Psychiatric Exam Psychiatric exam: Normal Affect, Normal Mood - Skin Skin Exam: Dry, Intact, Normal Color, Warm Results - Vital Signs Recent Vital Signs: Last Vital Signs Temp 97.2 F L 02/07/19 09:54 Pulse 75 02/07/19 21:23 Resp 19 02/07/19 09:54 BP 169/86 H 02/07/19 21:23 Pulse Ox 98 02/07/19 09:54 - Labs Result Diagrams: 02/07/19 06:00 02/07/19 06:00 Labs: Laboratory Results - last 24 hr 02/07/19 02/07/19 02/07/19 06:00 06:00 06:13 WBC 8.8 RBC 4.80 Hgb 15.0 Hct 42.3 MCV 88.2 MCH 31.3 H MCHC 35.4 RDW 12.5 Plt Count 179 Sodium 136 Potassium 3.4 L Chloride 102 Carbon Dioxide 25 Anion Gap 12 BUN 13 Creatinine 0.7 L Est GFR ( Amer) > 60 Est GFR (Non-Af Amer) > 60 POC Glucose (mg/dL) 171 H Random Glucose 166 H Calcium 8.8 Total Bilirubin 0.8 AST 12 L D ALT 26 Alkaline Phosphatase 75 Total Protein 5.9 L Albumin 3.4 L D Globulin 2.5 Albumin/Globulin Ratio 1.4 02/07/19 02/07/19 02/07/19 11:03 16:12 21:00 WBC RBC Hgb Hct MCV MCH MCHC RDW Plt Count Sodium Potassium Chloride Carbon Dioxide Anion Gap BUN Creatinine Est GFR ( Amer) Est GFR (Non-Af Amer) POC Glucose (mg/dL) 207 H 194 H 142 H Random Glucose Calcium Total Bilirubin AST ALT Alkaline Phosphatase Total Protein Albumin Globulin Albumin/Globulin Ratio Assessment & Plan (1) Acute CVA (cerebrovascular accident) Status: Acute Priority: High (2) Diabetes mellitus with hyperglycemia Status: Chronic Priority: Medium (3) Essential (primary) hypertension Status: Chronic Priority: Low - Assessment and Plan (Free Text) Plan: Continue ASA/Statin PT/OT, and Speech Therapy Control DM SS with Coverage
--- NOTE | 2019-02-07 23:27 | CP.PCM.PN ---
Subjective - Date & Time of Evaluation Date of Evaluation: 02/07/19 Time of Evaluation: 08:05 - Subjective Subjective: Seen and examined at the bed side. Feeling better. Objective - Vital Signs/Intake and Output Vital Signs (last 24 hours): Temp Pulse Resp BP Pulse Ox 97.2 F L 75 19 169/86 H 98 02/07/19 09:54 02/07/19 21:23 02/07/19 09:54 02/07/19 21:23 02/07/19 09:54 Intake and Output: 02/07/19 02/08/19 18:59 06:59 Intake Total 600 Output Total 980 Balance -380 - Medications Medications: Current Medications Al Hydrox/Mg Hydrox/Simethicone (Maalox Plus 30 Ml) 30 ml PO Q6 PRN PRN Reason: GI distress Amlodipine Besylate (Norvasc) 10 mg PO DAILY [facility] Last Admin: 02/07/19 08:06 Dose: 10 mg Aspirin (Ecotrin) 81 mg PO DAILY [facility] Last Admin: 02/07/19 08:07 Dose: 81 mg Atorvastatin Calcium (Lipitor) 40 mg PO DAILY [facility] Last Admin: 02/07/19 08:07 Dose: 40 mg Clopidogrel Bisulfate (Plavix) 75 mg PO DAILY [facility] Last Admin: 02/07/19 08:17 Dose: 75 mg Enoxaparin Sodium (Lovenox) 40 mg SC DAILY [facility]; Protocol Insulin Human Lispro (Humalog) 0 units SC [facility]; Protocol Last Admin: 02/07/19 21:11 Dose: Not Given Lactulose (Enulose) 20 gm PO Q12 [facility] Last Admin: 02/07/19 21:22 Dose: Not Given Metformin HCl (Glucophage) 1,000 mg PO BIDWM [facility] Last Admin: 02/07/19 17:04 Dose: 1,000 mg Metoprolol Tartrate (Lopressor) 100 mg PO Q12 [facility] Last Admin: 02/07/19 21:23 Dose: 100 mg - Labs Labs: 02/07/19 06:00 02/07/19 06:00 Assessment and Plan (1) Acute CVA (cerebrovascular accident) Status: Acute (2) Right hemiparesis Status: Acute (3) Diabetes mellitus with hyperglycemia Status: Chronic (4) Essential (primary) hypertension Status: Chronic - Assessment and Plan (Free Text) Assessment: IMproving with better coordination to Upper Extremities Plan: Continue Current Care
--- NOTE | 2019-02-07 23:27 | CP.PCM.PN ---
Subjective - Date & Time of Evaluation Date of Evaluation: 02/06/19 Time of Evaluation: 15:20 - Subjective Subjective: Seen and examined at the bed side. No new complaint. Continue to improve. Objective - Vital Signs/Intake and Output Vital Signs (last 24 hours): Temp Pulse Resp BP Pulse Ox 97.2 F L 75 19 169/86 H 98 02/07/19 09:54 02/07/19 21:23 02/07/19 09:54 02/07/19 21:23 02/07/19 09:54 Intake and Output: 02/07/19 02/08/19 18:59 06:59 Intake Total 600 Output Total 980 Balance -380 - Medications Medications: Current Medications Al Hydrox/Mg Hydrox/Simethicone (Maalox Plus 30 Ml) 30 ml PO Q6 PRN PRN Reason: GI distress Amlodipine Besylate (Norvasc) 10 mg PO DAILY [facility] Last Admin: 02/07/19 08:06 Dose: 10 mg Aspirin (Ecotrin) 81 mg PO DAILY [facility] Last Admin: 02/07/19 08:07 Dose: 81 mg Atorvastatin Calcium (Lipitor) 40 mg PO DAILY [facility] Last Admin: 02/07/19 08:07 Dose: 40 mg Clopidogrel Bisulfate (Plavix) 75 mg PO DAILY [facility] Last Admin: 02/07/19 08:17 Dose: 75 mg Enoxaparin Sodium (Lovenox) 40 mg SC DAILY [facility]; Protocol Insulin Human Lispro (Humalog) 0 units SC [facility]; Protocol Last Admin: 02/07/19 21:11 Dose: Not Given Lactulose (Enulose) 20 gm PO Q12 [facility] Last Admin: 02/07/19 21:22 Dose: Not Given Metformin HCl (Glucophage) 1,000 mg PO BIDWM [facility] Last Admin: 02/07/19 17:04 Dose: 1,000 mg Metoprolol Tartrate (Lopressor) 100 mg PO Q12 [facility] Last Admin: 02/07/19 21:23 Dose: 100 mg - Labs Labs: 02/07/19 06:00 02/07/19 06:00 Assessment and Plan (1) Acute CVA (cerebrovascular accident) Status: Acute (2) Diabetes mellitus with hyperglycemia Status: Acute (3) Right hemiparesis Status: Acute (4) Essential (primary) hypertension Status: Chronic - Assessment and Plan (Free Text) Plan: Continue current Care
[2019-02-08] MEDS: Insulin Lispro (humaLOG) 100 Units/ml Inj SC SCH ×4 (08:00→21:19)
[2019-02-08] MEDS: Enoxaparin 40 mg Syringe SC SCH (08:34)
[2019-02-08] MEDS: Silver Sulfadiazine 1% Cream (20 gm) EXT SCH (14:10)
--- NOTE | 2019-02-08 14:32 | CP.PCM.PN ---
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 He has not had a medical doctor and has now been diagnosed with both DM and HTN and he is a heavy smoker for 17 years. He has good initial neurological improvement. Nursing noted a small blister on the right heel which has just been bandaged Objective - Vital Signs/Intake and Output Vital Signs (last 24 hours): Temp Pulse Resp BP Pulse Ox 98.2 F 75 18 155/94 H 95 02/08/19 10:00 02/08/19 10:00 02/08/19 10:00 02/08/19 10:00 02/08/19 10:00 Intake and Output: 02/08/19 02/08/19 06:59 18:59 Intake Total 450 Output Total 1000 Balance -550 - Medications Medications: Current Medications Al Hydrox/Mg Hydrox/Simethicone (Maalox Plus 30 Ml) 30 ml PO Q6 PRN PRN Reason: GI distress Amlodipine Besylate (Norvasc) 10 mg PO DAILY [facility] Last Admin: 02/08/19 08:35 Dose: 10 mg Aspirin (Ecotrin) 81 mg PO DAILY [facility] Last Admin: 02/08/19 08:33 Dose: 81 mg Atorvastatin Calcium (Lipitor) 40 mg PO DAILY [facility] Last Admin: 02/08/19 08:33 Dose: 40 mg Clopidogrel Bisulfate (Plavix) 75 mg PO DAILY [facility] Last Admin: 02/08/19 08:36 Dose: 75 mg Enoxaparin Sodium (Lovenox) 40 mg SC DAILY [facility]; Protocol Last Admin: 02/08/19 08:34 Dose: 40 mg Insulin Human Lispro (Humalog) 0 units SC [facility]; Protocol Last Admin: 02/08/19 12:10 Dose: 2 unit Lactulose (Enulose) 20 gm PO Q12 PRN PRN Reason: Diarrhea Metformin HCl (Glucophage) 1,000 mg PO BIDWM [facility] Last Admin: 02/08/19 08:29 Dose: 1,000 mg Metoprolol Tartrate (Lopressor) 100 mg PO Q12 [facility] Last Admin: 02/08/19 08:32 Dose: 100 mg Silver Sulfadiazine (Silvadene 1% 20 Gm) 1 ea EXT DAILY [facility] - Labs Labs: 02/07/19 06:00 02/07/19 06:00 - Constitutional Appears: Non-toxic, No Acute Distress - Head Exam Head Exam: ATRAUMATIC, NORMAL INSPECTION, NORMOCEPHALIC - Eye Exam Eye Exam: EOMI - ENT Exam ENT Exam: Mucous Membranes Moist - Respiratory Exam Respiratory Exam: NORMAL BREATHING PATTERN - Cardiovascular Exam Cardiovascular Exam: REGULAR RHYTHM - GI/Abdominal Exam GI & Abdominal Exam: absent: Distended - Neurological Exam Neurological Exam: Alert, CN II-XII Intact. absent: Normal Gait Neuro motor strength exam: Left Upper Extremity: 5, Right Upper Extremity: 4, Left Lower Extremity: 5, Right Lower Extremity: 2/1 (distal but 3+/5 proximal) - Psychiatric Exam Psychiatric exam: Normal Affect, Normal Mood - Skin Skin Exam: Warm Assessment and Plan - Assessment and Plan (Free Text) Assessment: PT/OT to continue to help increase functional independence Team conference for d/c planning Pain: controlled Vascular: no evidence of DVT GI: No evidence of constipation or diarrhea Skin: As per wound nurse will cover with a hydrocolloid foam Patient continues to be an excellent acute rehabilitation candidate and will have continued PT, OT and recreational therapy to help facilitate a safe and a ppropriate d/c plan
[2019-02-08] MEDS ORDERED: Diphenhydramine 1% CREAM TOP STA (19:46)
[2019-02-08] MEDS: Diphenhydramine 1% CREAM TOP SCH (21:18)
[2019-02-09] MEDS: Insulin Lispro (humaLOG) 100 Units/ml Inj SC SCH ×4 (07:52→21:17)
[2019-02-09] MEDS: Silver Sulfadiazine 1% Cream (20 gm) EXT SCH (08:50)
[2019-02-09] MEDS: Diphenhydramine 1% CREAM TOP SCH ×2 (08:50→21:17)
[2019-02-09] MEDS: Enoxaparin 40 mg Syringe SC SCH (08:51)
--- NOTE | 2019-02-09 13:03 | PCM.PSYTMC ---
Acute Rehab Team Conference - - Vital Signs: Vital Signs (Last 8 Hours): Vital Signs 02/09/19 02/09/19 02/09/19 07:34 08:48 08:49 Temperature 97.5 F L Pulse Rate 56 L 63 63 Respiratory 20 Rate Blood Pressure 167/91 H 167/91 H 167/91 H O2 Sat by Pulse 98 Oximetry 02/09/19 02/09/19 10:09 10:28 Temperature 97.5 F L Pulse Rate 84 56 L Respiratory 20 Rate Blood Pressure 167/91 H O2 Sat by Pulse 98 Oximetry Pain: 0 - Precautions: Precautions: Fall Prevention, Cardiac/Pulmonary - Medications/Other Issues: Comment: Benadryl topical for generalized non elevated rashes to upper extremities. Silvadene Cream to the right lateral foot. - Consults: Comment: Dr. Oneal Podiatry toe nails trimming - Skin: Incision Site: N/A - Toileting: Toileting: Maximal Assistance - Bladder Management: Bladder Pattern: Normal Voiding Method: Toilet, Urinal Bladder Management: Maximal Assistance - Transfers: Transfers: Maximal Assistance - ADL's: ADL's: Maximal Assistance - Pain Management: Other Intervention:: NONE - Patient/Family Teaching: Other Intervention:: Safe transfer. Medication. S/S of CVA. Diabetic. - Goals/Time Frame: Comment: Next Team Conference - Provider: Registered Nurse:: Bernice Valle Physical Therapy - Bed Mobility Bed Mobility: Supervision, Verbal Cues - Transfers Wheelchair to Mat: Verbal Cues, Moderate Assistance Sit to Stand: Verbal Cues, Minimal Assistance - Ambulation Level of Assistance: Verbal Cues, Moderate Assistance Distance (ft.): 45 Orthoses: n/a Comment: -initial trials with L handrail of 10-15 feet. -min/mod A for balance and trunk control. -mod A for RLE management to improve swing phase and improve foot placement on landing to improve base of support. -working to reduce extension tone during swing with reduced posterior leaning and improve knee control with improved ankle placement. -mirror removed as patient reports it provides more distraction than assistance for him during gait. -patient benefits most from cue with UE placement on L side to improve postural control/balance and use of trunk to manage improved position/initial conditions of LEs and pelvis. -patient transitioned to LUE hand held assistance to improve flow and sequencing and progress distance, x 45 feet x 2 trials. -requires cues for upright gaze and to improve base of support - Stair Negotiation Stairs: Level of Assistance: Not Tested Comment: to be assessed - Standing Balance Static Stand: Contact Guard Assist - Pain Pain (assessed during therapy session): 0 Comment: pt denies pain - Insight/Carryover Insight/Carryover: Fair - Patient/Family Education Comment: safety, therapy schedule, therapy goals, mobility, POC, use of call covarrubias, self-releasing call ball, heel off-loading, attention to tasks - Assessment/Plan Assessment: Mr. Whyte continues to present with very poor sensation/awareness/control on the RLE. Patient lacks attention and requires frequent cues to attend to task and focus. Patient is resistant to therapist education and guidance and at times gets verbally defensive which greatly impairs his abiltiy to benefit from therapeutic exercises to improve his ability to function with reduced assistance and increased safety. PT recommends continued skilled therapy to maximzie safety and independence with all mobility s/p CVA. PT recommends discharge to [facility] to continue addressing skilled needs s/p completion of full length of stay in acute rehab. - Goals Timeframe: 7 days Goals: -rolling in bed with supervision. -supine to/from sit with supervision. -stand pivot transfers without device with min A. -sit to/from stand transfers with appropriate single sided device with min A. -ambulate 75 feet with single sided crutch with moderate assistance. -negotiate 4 training steps with single rail with mod A - Provider Physical Therapist:: Aubree Ivy License Number:: [id number] Occupational Therapy - Arousal/Attention/Orientation Level of Consciousness: Awake, Alert Patient Orientation: Person, Place, Time, Appropriate to Age, Appropriate to Situation - ADL/IADL Self Feeding: Set-up Help Grooming: Set-up Help Bathing-Upper Ext: Verbal Cues, Set-up Help, Minimal Assistance Bathing-Lower Ext: Verbal Cues, Set-up Help, Moderate Assistance, Maximum Assistance Dressing-Upper Ext: Verbal Cues, Set-up Help, Minimal Assistance Dressing-Lower Ext: Verbal Cues, Set-up Help, Maximum Assistance Comment: homemaking TBA when stronger/more functional - Sitting Balance Static Sitting: Supervision Dynamic Sitting: Reaches across midline, Reaches out of base of support, Reaches within base of support, Minimal Assistance Comment: seated unsupported - Transfers Wheelchair to Bed Transfers: Verbal Cues, Set-up Help, Moderate Assistance Toilet Transfers: Verbal Cues, Moderate Assistance Comment: shower transfers: min/mod asist and verbal cues - Wheelchair Management Level of Assistance: Modified Independent, Supervision Distance (ft.): 75 - Upper Extremity Status Right Upper Extremity Comment: RUE strength: 3+/5 Left Upper Extremity Comment: AROM: WNLS 5/5 - Pain Pain (assessed during therapy session): 0 - Insight/Carryover Insight/Carryover: Good - Patient/Family Education Comment: -ongoing for adls, transfers and mobility training using adaptive/compensatory strategies. -educated on rehab/OT goals, plan of care. - issued HEP for LUE management/ROM exercises, gross/fine motor function. -w/c management/propulsion, safety awareness. -energy conservation/work simplication strategies. -bed & w/c positioning for R heel protection; pt with R heel blister - Assessment/Plan Assessment: Pt is a 58 year old R hand dominant male with dx: acute CVA with R hemiparesis. Precautions: falls(self release seatbelt with alarm), cardiac, R laptray, DM. Pt continues to demonstrate staedy improvements in functional performance of self care, transfers and mobility, RUE gross motor function, but continues to need cues to attend & safely manage RUE. Pt limited by the following impairments: -impaired strength/motor control in RUE/RLE, gross/fine motor function. -impaired activity tolerance/endurance. -impaired postural control. -impaired sensation RUE. -impaired kinesthesia, proprioception and overall body awareness. -impaired safety awareness. -impaired standing balance/tolerance. -impaired knowledge of adaptive/compensatory strategies. - impaired activity tolerance---which all impact on self care, functional transfers/mobility. Pt will continue to benefit from skilled Occupational Therapy to address above impairments to maximize function in self care, transfers and mobility using adaptive/compensatory strategies, + DME needs assessment, bed and w/c positioning, update HEP. Goal: intermittent S for self care, transfers and mobility using adaptive/compensatory strategies - Goals Timeframe: 8 days Comment: *FEEDING: Mod I. *GROOMING: I/setup seated. *UPPER BODY DRESSING: I/setup seated. *LOWER BODY DRESSING: Min assist and verbal cues with assistive devices prn. *BATHING: Moderate assist and verbal cues seated intermittently. *TRANSFERS: Min assist and verbal cues <->bed, commode, chair and shower bench, oter surfaces. *RUE FUNCTION: Increase strength to 4/5 throughout, liquor runner to 30- lbs, incraese ccordination to functional limits for bimanual tasks--fastending buttons, oepning containers, using RUE as gross assist. *I in HEP issued(handout) - Provider Occupational Therapist:: Kinga Jaime License Number: [id number] Speech Therapy - Consult Information Patient on Program: Yes Medical Diagnosis: CVA Treatment Diagnosis: minimal cognitive deficits - Assessment Memory Impairment: Mild - Plan Assessment: Keven Whyte presents with minimal cognitive deficits characterized by impaired short-term memory and attention; however, pt is insistent that these deficits were present prior to CVA and that they do not impact his ability to participate in his functional living environment. Pt refusing to continue further speech tx, stating "This isn't useful for me, I do n't care about this stuff", despite encouragement re: reasoning behind tx tasks and POC. Therefore, pt will be discharged from skilled ST at this time. Plan: Discharge Speech/Language Therapy Goals/Timeframe: Please see progress note dated 02/08/19 for complete POC Recommendations: Discontinue speech tx - Provider Therapist: Yulia Herman License Number: [id number] Recreational Therapy - Participation Participation: Participates in Individual and/or Group Sessions - Attendance Attendance: 3-5 times per week - Activities Leisure Activities: Cards and Games - Socialization Level of Socialization: Initiates/interacts freely with care givers and peer - Diversional Time Diversional Time: listening to music, socializing - Assessment Assessment/Plan: Pt is agreeable to participate in recreation therapy sessions following encouragement. Pt was oriented to [place] in the corner card task and carried over 75% of task rules independently. Pt required min verbal cues for error recognition which pt would then realize and then again initiate same error. Pt requires min verbal cues throughout all discussions and tasks for redirection 2' pt initiating topics unrelated to discussion or task. Pt will benefit from higher level recreation therapy related tasks involving multi-step processing and direction following. Problems Currently Limiting Participation: R UE and LE weakness, decrease leisure awareness level Goals and Time Frame: Pt will tolerate 30 minutes of recreation therapy session mod I level by date of discharge. - Provider Therapist: Maria T Chavez Nutrition - Current Diet Current Diet/Supplement/Feedings: Heart healthy low consistent CHO thin liquids - Appetite Percent Meal Consumed: 75-100% - Assessment/Goals/Time Frame Assessments/Goals/Time Frame: Pt at high nutritional risk. goals: 1.Pt to consume 75-100% of meals. 2. Blood glucoses to be between 70-180 mg/dl(HgbA1C to trend downward over next few months). Follow-up due on 02/10/2019 - Provider Provider: Yocasta Collins Case Management - Psychosocial Assessment Support Systems: Ra Whyte () - [phone] Psychological Interventions/Needs: Patient is AAOx3 and able to verbalize needs. Discharge Concerns: Patient lives alone and is a current smoker. Patient/Family Meeting: CM met with patient and rehab team. Intervention/Goal/Outcome: 1. Goal: Mod I/Supervision 2. Plan: home with VNS vs. outpatient PT/OT pending progress 3. discuss DME needs with team 4. f/u appts 5. caregiver training? - Discharge Plan Discharge Plan: Home with services - Provider Provider: Loreto Stacy License Number: [id number] Rehabilitation Plan - Treatment Plan Treatment Plan: Physical Therapy, Occupational Therapy, Dietary, Patient/Family Education - Discharge Plan Estimated Date of Discharge: 02/26/19 Discharge to: Home
--- NOTE | 2019-02-09 13:49 | CP.PCM.PN ---
Subjective - Date & Time of Evaluation Date of Evaluation: 02/09/19 Time of Evaluation: 13:47 - Subjective Subjective: 58 year old male with left CVA and right HP. He has fair motor strength but limitations are related to motor planning and control rather than strength. Objective - Vital Signs/Intake and Output Vital Signs (last 24 hours): Temp Pulse Resp BP Pulse Ox 97.5 F L 56 L 20 167/91 H 98 02/09/19 10:28 02/09/19 10:28 02/09/19 10:28 02/09/19 10:28 02/09/19 10:09 - Medications Medications: Current Medications Al Hydrox/Mg Hydrox/Simethicone (Maalox Plus 30 Ml) 30 ml PO Q6 PRN PRN Reason: GI distress Amlodipine Besylate (Norvasc) 10 mg PO DAILY [facility] Last Admin: 02/09/19 08:49 Dose: 10 mg Aspirin (Ecotrin) 81 mg PO DAILY [facility] Last Admin: 02/09/19 08:50 Dose: 81 mg Atorvastatin Calcium (Lipitor) 40 mg PO DAILY [facility] Last Admin: 02/09/19 08:51 Dose: 40 mg Clopidogrel Bisulfate (Plavix) 75 mg PO DAILY [facility] Last Admin: 02/09/19 08:50 Dose: 75 mg Enoxaparin Sodium (Lovenox) 40 mg SC DAILY [facility]; Protocol Last Admin: 02/09/19 08:51 Dose: 40 mg Insulin Human Lispro (Humalog) 0 units SC ACHS [facility]; Protocol Last Admin: 02/09/19 12:02 Dose: 3 unit Lactulose (Enulose) 20 gm PO Q12 PRN PRN Reason: Diarrhea Metformin HCl (Glucophage) 1,000 mg PO BIDWM [facility] Last Admin: 02/09/19 08:49 Dose: 1,000 mg Metoprolol Tartrate (Lopressor) 100 mg PO Q12 [facility] Last Admin: 02/09/19 08:48 Dose: 100 mg Silver Sulfadiazine (Silvadene 1% 20 Gm) 1 ea EXT DAILY [facility] Last Admin: 02/09/19 08:50 Dose: 1 applic Zinc Acetate/Diphenhydramine (Benadryl 1% Zinc Acetate -0.1%) 1 applic TOP Q12 [facility] Last Admin: 02/09/19 08:50 Dose: 1 applic - Labs Labs: 02/07/19 06:00 04/21/19 06:00 - Constitutional Appears: Non-toxic, No Acute Distress - Head Exam Head Exam: ATRAUMATIC, NORMAL INSPECTION, NORMOCEPHALIC - Eye Exam Eye Exam: EOMI - ENT Exam ENT Exam: Mucous Membranes Moist - Neck Exam Neck Exam: absent: Meningismus - Respiratory Exam Respiratory Exam: NORMAL BREATHING PATTERN - Cardiovascular Exam Cardiovascular Exam: REGULAR RHYTHM - GI/Abdominal Exam GI & Abdominal Exam: absent: Distended, Guarding - Extremities Exam Extremities Exam: absent: Calf Tenderness - Neurological Exam Neurological Exam: Alert - Psychiatric Exam Psychiatric exam: Normal Affect, Normal Mood - Skin Skin Exam: Warm Assessment and Plan - Assessment and Plan (Free Text) Assessment: PT/OT to continue to help increase functional independence Team conference for d/c planning Pain: controlled Vascular: no evidence of DVT GI: No evidence of constipation or diarrhea Patient continues to be an excellent acute rehabilitation candidate and will have continued focused speech, PT, OT and recreational therapy to help facilitate a safe and appropriate d/c plan The patients plan was discussed in great detail in team conference. This was then discussed with the patient at length. The discussions directly impact on the patients plan of care. Please see the note for more details
[2019-02-10 06:53] LABS: HEMOGLOBIN 15.2 g/dL (12.0-18.0); MEAN CELL VOLUME 87.7 fl (80.0-94.0); MEAN CORPUSCULAR HEMOGLOBIN 30.6 pg (27.0-31.0); MEAN CORPUSCULAR HGB CONC 34.8 g/dL (33.0-37.0); RBC 4.99 Mil/uL (4.40-5.90); RED CELL DISTRIBUTION WIDTH 12.7 % (11.5-14.5); WHITE BLOOD COUNT 8.8 K/uL (4.8-10.8)
[2019-02-10 07:10] LABS: BLOOD UREA NITROGEN 18 mg/dl (9-20); CALCIUM 9.2 mg/dL (8.4-10.2); GFR NON-AFRICAN AMERICAN > 60
[2019-02-10] MEDS: Insulin Lispro (humaLOG) 100 Units/ml Inj SC SCH ×4 (07:34→22:01)
[2019-02-10] MEDS: Enoxaparin 40 mg Syringe SC SCH (08:16)
[2019-02-10] MEDS: Silver Sulfadiazine 1% Cream (20 gm) EXT SCH (08:17)
[2019-02-10] MEDS: Diphenhydramine 1% CREAM TOP SCH ×2 (15:44→22:01)
--- NOTE | 2019-02-10 17:59 | CP.PCM.PN ---
Subjective - Date & Time of Evaluation Date of Evaluation: 02/10/19 Time of Evaluation: 17:57 - Subjective Subjective: 58 year old male with left CVA and right HP. He has fair motor strength but limitations are related to motor planning and control rather than strength. He is understanding better the process and what is expected of him and what he ne eds to do to succeed and why Objective - Vital Signs/Intake and Output Vital Signs (last 24 hours): Temp Pulse Resp BP Pulse Ox 96.0 F L 69 20 149/85 99 02/10/19 07:25 02/10/19 08:15 02/10/19 07:25 02/10/19 08:15 02/10/19 07:25 - Medications Medications: Current Medications Al Hydrox/Mg Hydrox/Simethicone (Maalox Plus 30 Ml) 30 ml PO Q6 PRN PRN Reason: GI distress Amlodipine Besylate (Norvasc) 10 mg PO DAILY [facility] Last Admin: 02/10/19 08:13 Dose: 10 mg Aspirin (Ecotrin) 81 mg PO DAILY [facility] Last Admin: 02/10/19 08:13 Dose: 81 mg Atorvastatin Calcium (Lipitor) 40 mg PO DAILY [facility] Last Admin: 02/10/19 08:15 Dose: 40 mg Clopidogrel Bisulfate (Plavix) 75 mg PO DAILY [facility] Last Admin: 02/10/19 08:13 Dose: 75 mg Enoxaparin Sodium (Lovenox) 40 mg SC DAILY [facility]; Protocol Last Admin: 02/10/19 08:16 Dose: 40 mg Insulin Human Lispro (Humalog) 0 units SC ACHS [facility]; Protocol Last Admin: 02/10/19 16:57 Dose: 3 unit Lactulose (Enulose) 20 gm PO Q12 PRN PRN Reason: Diarrhea Metformin HCl (Glucophage) 1,000 mg PO BIDWM [facility] Last Admin: 02/10/19 16:56 Dose: 1,000 mg Metoprolol Tartrate (Lopressor) 100 mg PO Q12 [facility] Last Admin: 02/10/19 08:15 Dose: 100 mg Silver Sulfadiazine (Silvadene 1% 20 Gm) 1 ea EXT DAILY [facility] Last Admin: 02/10/19 08:17 Dose: 1 applic Zinc Acetate/Diphenhydramine (Benadryl 1% Zinc Acetate -0.1%) 1 applic TOP Q8 [facility] Last Admin: 02/10/19 15:44 Dose: 1 applic - Labs Labs: 02/10/19 06:08 02/10/19 06:08 - Constitutional Appears: Non-toxic, No Acute Distress - Head Exam Head Exam: ATRAUMATIC, NORMAL INSPECTION, NORMOCEPHALIC - Eye Exam Eye Exam: EOMI - ENT Exam ENT Exam: Mucous Membranes Moist - Respiratory Exam Respiratory Exam: NORMAL BREATHING PATTERN - GI/Abdominal Exam GI & Abdominal Exam: absent: Distended - Neurological Exam Neurological Exam: Alert, Awake, CN II-XII Intact - Psychiatric Exam Psychiatric exam: Normal Affect, Normal Mood - Skin Skin Exam: Warm Assessment and Plan - Assessment and Plan (Free Text) Assessment: PT/OT to continue to help increase functional independence Team conference for d/c planning Pain: controlled Vascular: no evidence of DVT GI: No evidence of constipation or diarrhea Patient continues to be an excellent acute rehabilitation candidate and will have continued focused speech, PT, OT and recreational therapy to help facilitate a safe and appropriate d/c plan
[2019-02-11] MEDS: Diphenhydramine 1% CREAM TOP SCH ×3 (06:21→21:12)
[2019-02-11] MEDS: Insulin Lispro (humaLOG) 100 Units/ml Inj SC SCH ×4 (07:46→21:11)
[2019-02-11] MEDS: Enoxaparin 40 mg Syringe SC SCH (08:13)
[2019-02-11] MEDS: Silver Sulfadiazine 1% Cream (20 gm) EXT SCH (08:15)
[2019-02-12] MEDS: Diphenhydramine 1% CREAM TOP SCH ×3 (06:24→21:41)
[2019-02-12] MEDS: Insulin Lispro (humaLOG) 100 Units/ml Inj SC SCH ×4 (07:04→21:38)
[2019-02-12] MEDS: Enoxaparin 40 mg Syringe SC SCH (08:27)
[2019-02-12] MEDS: Silver Sulfadiazine 1% Cream (20 gm) EXT SCH (08:28)
--- NOTE | 2019-02-12 14:46 | CP.PCM.PN ---
Subjective - Date & Time of Evaluation Date of Evaluation: 02/12/19 Time of Evaluation: 14:44 - Subjective Subjective: Patient seen in the room, doing well denies sob/cp improved right hand dexterity as well continue current care Objective - Vital Signs/Intake and Output Vital Signs (last 24 hours): Temp Pulse Resp BP Pulse Ox 97.3 F L 68 20 140/80 99 02/12/19 07:47 02/12/19 08:28 02/12/19 07:47 02/12/19 08:28 02/12/19 07:47 - Medications Medications: Current Medications Al Hydrox/Mg Hydrox/Simethicone (Maalox Plus 30 Ml) 30 ml PO Q6 PRN PRN Reason: GI distress Amlodipine Besylate (Norvasc) 10 mg PO DAILY [facility] Last Admin: 02/12/19 08:26 Dose: 10 mg Aspirin (Ecotrin) 81 mg PO DAILY [facility] Last Admin: 02/12/19 08:27 Dose: 81 mg Atorvastatin Calcium (Lipitor) 40 mg PO DAILY [facility] Last Admin: 02/12/19 08:28 Dose: 40 mg Clopidogrel Bisulfate (Plavix) 75 mg PO DAILY [facility] Last Admin: 02/12/19 08:26 Dose: 75 mg Enoxaparin Sodium (Lovenox) 40 mg SC DAILY [facility]; Protocol Last Admin: 02/12/19 08:27 Dose: 40 mg Insulin Human Lispro (Humalog) 0 units SC ACHS [facility]; Protocol Last Admin: 02/12/19 11:30 Dose: 3 unit Lactulose (Enulose) 20 gm PO Q12 PRN PRN Reason: Diarrhea Metformin HCl (Glucophage) 1,000 mg PO BIDWM [facility] Last Admin: 02/12/19 08:27 Dose: 1,000 mg Metoprolol Tartrate (Lopressor) 100 mg PO Q12 [facility] Last Admin: 02/12/19 08:28 Dose: 100 mg Silver Sulfadiazine (Silvadene 1% 20 Gm) 1 ea EXT DAILY [facility] Last Admin: 02/12/19 08:28 Dose: 1 applic Zinc Acetate/Diphenhydramine (Benadryl 1% Zinc Acetate -0.1%) 1 applic TOP Q8 [facility] Last Admin: 02/12/19 06:24 Dose: 1 applic - Labs Labs: 02/10/19 06:08 02/10/19 06:08
[2019-02-13] MEDS: Diphenhydramine 1% CREAM TOP SCH ×3 (06:07→21:15)
[2019-02-13] MEDS: Insulin Lispro (humaLOG) 100 Units/ml Inj SC SCH ×4 (07:11→21:16)
[2019-02-13 08:15] LABS: MEAN CORPUSCULAR HEMOGLOBIN 30.6 pg (27.0-31.0); MEAN CORPUSCULAR HGB CONC 34.4 g/dL (33.0-37.0); RBC 4.91 Mil/uL (4.40-5.90); RED CELL DISTRIBUTION WIDTH 12.9 % (11.5-14.5); WHITE BLOOD COUNT 9.9 K/uL (4.8-10.8)
[2019-02-13 08:24] LABS: BLOOD UREA NITROGEN 17 mg/dl (9-20); CALCIUM 9.1 mg/dL (8.4-10.2); GFR NON-AFRICAN AMERICAN > 60
[2019-02-13] MEDS: Enoxaparin 40 mg Syringe SC SCH (08:28)
[2019-02-13] MEDS: Silver Sulfadiazine 1% Cream (20 gm) EXT SCH (09:00)
[2019-02-14] MEDS: Diphenhydramine 1% CREAM TOP SCH ×3 (07:34→21:20)
[2019-02-14] MEDS: Insulin Lispro (humaLOG) 100 Units/ml Inj SC SCH ×4 (07:35→21:21)
[2019-02-14] MEDS: Enoxaparin 40 mg Syringe SC SCH (08:35)
[2019-02-14] MEDS: Silver Sulfadiazine 1% Cream (20 gm) EXT SCH (08:40)
--- NOTE | 2019-02-15 04:59 | CP.PCM.PN ---
Subjective - Date & Time of Evaluation Date of Evaluation: 02/09/19 Objective - Vital Signs/Intake and Output Vital Signs (last 24 hours): Temp Pulse Resp BP Pulse Ox 97.2 F L 75 20 148/79 99 02/14/19 20:11 02/14/19 21:20 02/14/19 20:11 02/14/19 21:20 02/14/19 20:11 - Medications Medications: Current Medications Al Hydrox/Mg Hydrox/Simethicone (Maalox Plus 30 Ml) 30 ml PO Q6 PRN PRN Reason: GI distress Amlodipine Besylate (Norvasc) 10 mg PO DAILY [facility] Last Admin: 02/14/19 08:34 Dose: 10 mg Aspirin (Ecotrin) 81 mg PO DAILY [facility] Last Admin: 02/14/19 08:34 Dose: 81 mg Atorvastatin Calcium (Lipitor) 40 mg PO DAILY [facility] Last Admin: 02/14/19 08:34 Dose: 40 mg Clopidogrel Bisulfate (Plavix) 75 mg PO DAILY [facility] Last Admin: 02/14/19 08:34 Dose: 75 mg Enoxaparin Sodium (Lovenox) 40 mg SC DAILY [facility]; Protocol Last Admin: 02/14/19 08:35 Dose: 40 mg Insulin Human Lispro (Humalog) 0 units SC ACHS [facility]; Protocol Last Admin: 02/14/19 21:21 Dose: Not Given Lactulose (Enulose) 20 gm PO Q12 PRN PRN Reason: Diarrhea Metformin HCl (Glucophage) 1,000 mg PO BIDWM [facility] Last Admin: 02/14/19 16:49 Dose: 1,000 mg Metoprolol Tartrate (Lopressor) 100 mg PO Q12 [facility] Last Admin: 02/14/19 21:20 Dose: 100 mg Silver Sulfadiazine (Silvadene 1% 20 Gm) 1 ea EXT DAILY [facility] Last Admin: 02/14/19 08:40 Dose: 1 applic Zinc Acetate/Diphenhydramine (Benadryl 1% Zinc Acetate -0.1%) 1 applic TOP Q8 [facility] Last Admin: 02/14/19 21:20 Dose: 1 applic - Labs Labs: 02/13/19 07:00 02/13/19 07:00 Assessment and Plan (1) Acute CVA (cerebrovascular accident) Status: Acute (2) Diabetes mellitus with hyperglycemia Status: Acute (3) Right hemiparesis Status: Acute (4) Essential (primary) hypertension Status: Chronic
--- NOTE | 2019-02-15 04:59 | CP.PCM.PN ---
Subjective - Date & Time of Evaluation Date of Evaluation: 02/08/19 Objective - Vital Signs/Intake and Output Vital Signs (last 24 hours): Temp Pulse Resp BP Pulse Ox 97.2 F L 75 20 148/79 99 02/14/19 20:11 02/14/19 21:20 02/14/19 20:11 02/14/19 21:20 02/14/19 20:11 - Medications Medications: Current Medications Al Hydrox/Mg Hydrox/Simethicone (Maalox Plus 30 Ml) 30 ml PO Q6 PRN PRN Reason: GI distress Amlodipine Besylate (Norvasc) 10 mg PO DAILY [facility] Last Admin: 02/14/19 08:34 Dose: 10 mg Aspirin (Ecotrin) 81 mg PO DAILY [facility] Last Admin: 02/14/19 08:34 Dose: 81 mg Atorvastatin Calcium (Lipitor) 40 mg PO DAILY [facility] Last Admin: 02/14/19 08:34 Dose: 40 mg Clopidogrel Bisulfate (Plavix) 75 mg PO DAILY [facility] Last Admin: 02/14/19 08:34 Dose: 75 mg Enoxaparin Sodium (Lovenox) 40 mg SC DAILY [facility]; Protocol Last Admin: 02/14/19 08:35 Dose: 40 mg Insulin Human Lispro (Humalog) 0 units SC ACHS [facility]; Protocol Last Admin: 02/14/19 21:21 Dose: Not Given Lactulose (Enulose) 20 gm PO Q12 PRN PRN Reason: Diarrhea Metformin HCl (Glucophage) 1,000 mg PO BIDWM [facility] Last Admin: 02/14/19 16:49 Dose: 1,000 mg Metoprolol Tartrate (Lopressor) 100 mg PO Q12 [facility] Last Admin: 02/14/19 21:20 Dose: 100 mg Silver Sulfadiazine (Silvadene 1% 20 Gm) 1 ea EXT DAILY [facility] Last Admin: 02/14/19 08:40 Dose: 1 applic Zinc Acetate/Diphenhydramine (Benadryl 1% Zinc Acetate -0.1%) 1 applic TOP Q8 [facility] Last Admin: 02/14/19 21:20 Dose: 1 applic - Labs Labs: 02/13/19 07:00 02/13/19 07:00 Assessment and Plan (1) Acute CVA (cerebrovascular accident) Status: Acute (2) Diabetes mellitus with hyperglycemia Status: Acute (3) Right hemiparesis Status: Acute (4) Essential (primary) hypertension Status: Chronic
--- NOTE | 2019-02-15 05:00 | CP.PCM.PN ---
Subjective - Date & Time of Evaluation Date of Evaluation: 02/10/19 Objective - Vital Signs/Intake and Output Vital Signs (last 24 hours): Temp Pulse Resp BP Pulse Ox 97.2 F L 75 20 148/79 99 02/14/19 20:11 02/14/19 21:20 02/14/19 20:11 02/14/19 21:20 02/14/19 20:11 - Medications Medications: Current Medications Al Hydrox/Mg Hydrox/Simethicone (Maalox Plus 30 Ml) 30 ml PO Q6 PRN PRN Reason: GI distress Amlodipine Besylate (Norvasc) 10 mg PO DAILY [facility] Last Admin: 02/14/19 08:34 Dose: 10 mg Aspirin (Ecotrin) 81 mg PO DAILY [facility] Last Admin: 02/14/19 08:34 Dose: 81 mg Atorvastatin Calcium (Lipitor) 40 mg PO DAILY [facility] Last Admin: 02/14/19 08:34 Dose: 40 mg Clopidogrel Bisulfate (Plavix) 75 mg PO DAILY [facility] Last Admin: 02/14/19 08:34 Dose: 75 mg Enoxaparin Sodium (Lovenox) 40 mg SC DAILY [facility]; Protocol Last Admin: 02/14/19 08:35 Dose: 40 mg Insulin Human Lispro (Humalog) 0 units SC ACHS [facility]; Protocol Last Admin: 02/14/19 21:21 Dose: Not Given Lactulose (Enulose) 20 gm PO Q12 PRN PRN Reason: Diarrhea Metformin HCl (Glucophage) 1,000 mg PO BIDWM [facility] Last Admin: 02/14/19 16:49 Dose: 1,000 mg Metoprolol Tartrate (Lopressor) 100 mg PO Q12 [facility] Last Admin: 02/14/19 21:20 Dose: 100 mg Silver Sulfadiazine (Silvadene 1% 20 Gm) 1 ea EXT DAILY [facility] Last Admin: 02/14/19 08:40 Dose: 1 applic Zinc Acetate/Diphenhydramine (Benadryl 1% Zinc Acetate -0.1%) 1 applic TOP Q8 [facility] Last Admin: 02/14/19 21:20 Dose: 1 applic - Labs Labs: 02/13/19 07:00 02/13/19 07:00 Assessment and Plan (1) Acute CVA (cerebrovascular accident) Status: Acute (2) Diabetes mellitus with hyperglycemia Status: Acute (3) Right hemiparesis Status: Acute (4) Essential (primary) hypertension Status: Chronic
--- NOTE | 2019-02-15 05:01 | CP.PCM.PN ---
Subjective - Date & Time of Evaluation Date of Evaluation: 02/11/19 Objective - Vital Signs/Intake and Output Vital Signs (last 24 hours): Temp Pulse Resp BP Pulse Ox 97.2 F L 75 20 148/79 99 02/14/19 20:11 02/14/19 21:20 02/14/19 20:11 02/14/19 21:20 02/14/19 20:11 - Medications Medications: Current Medications Al Hydrox/Mg Hydrox/Simethicone (Maalox Plus 30 Ml) 30 ml PO Q6 PRN PRN Reason: GI distress Amlodipine Besylate (Norvasc) 10 mg PO DAILY [facility] Last Admin: 02/14/19 08:34 Dose: 10 mg Aspirin (Ecotrin) 81 mg PO DAILY [facility] Last Admin: 02/14/19 08:34 Dose: 81 mg Atorvastatin Calcium (Lipitor) 40 mg PO DAILY [facility] Last Admin: 02/14/19 08:34 Dose: 40 mg Clopidogrel Bisulfate (Plavix) 75 mg PO DAILY [facility] Last Admin: 02/14/19 08:34 Dose: 75 mg Enoxaparin Sodium (Lovenox) 40 mg SC DAILY [facility]; Protocol Last Admin: 02/14/19 08:35 Dose: 40 mg Insulin Human Lispro (Humalog) 0 units SC ACHS [facility]; Protocol Last Admin: 02/14/19 21:21 Dose: Not Given Lactulose (Enulose) 20 gm PO Q12 PRN PRN Reason: Diarrhea Metformin HCl (Glucophage) 1,000 mg PO BIDWM [facility] Last Admin: 02/14/19 16:49 Dose: 1,000 mg Metoprolol Tartrate (Lopressor) 100 mg PO Q12 [facility] Last Admin: 02/14/19 21:20 Dose: 100 mg Silver Sulfadiazine (Silvadene 1% 20 Gm) 1 ea EXT DAILY [facility] Last Admin: 02/14/19 08:40 Dose: 1 applic Zinc Acetate/Diphenhydramine (Benadryl 1% Zinc Acetate -0.1%) 1 applic TOP Q8 [facility] Last Admin: 02/14/19 21:20 Dose: 1 applic - Labs Labs: 02/13/19 07:00 02/13/19 07:00 Assessment and Plan (1) Acute CVA (cerebrovascular accident) Status: Acute (2) Diabetes mellitus with hyperglycemia Status: Acute (3) Right hemiparesis Status: Acute (4) Essential (primary) hypertension Status: Chronic
--- NOTE | 2019-02-15 05:02 | CP.PCM.PN ---
Subjective - Date & Time of Evaluation Date of Evaluation: 02/12/19 Objective - Vital Signs/Intake and Output Vital Signs (last 24 hours): Temp Pulse Resp BP Pulse Ox 97.2 F L 75 20 148/79 99 02/14/19 20:11 02/14/19 21:20 02/14/19 20:11 02/14/19 21:20 02/14/19 20:11 - Medications Medications: Current Medications Al Hydrox/Mg Hydrox/Simethicone (Maalox Plus 30 Ml) 30 ml PO Q6 PRN PRN Reason: GI distress Amlodipine Besylate (Norvasc) 10 mg PO DAILY [facility] Last Admin: 02/14/19 08:34 Dose: 10 mg Aspirin (Ecotrin) 81 mg PO DAILY [facility] Last Admin: 02/14/19 08:34 Dose: 81 mg Atorvastatin Calcium (Lipitor) 40 mg PO DAILY [facility] Last Admin: 02/14/19 08:34 Dose: 40 mg Clopidogrel Bisulfate (Plavix) 75 mg PO DAILY [facility] Last Admin: 02/14/19 08:34 Dose: 75 mg Enoxaparin Sodium (Lovenox) 40 mg SC DAILY [facility]; Protocol Last Admin: 02/14/19 08:35 Dose: 40 mg Insulin Human Lispro (Humalog) 0 units SC ACHS [facility]; Protocol Last Admin: 02/14/19 21:21 Dose: Not Given Lactulose (Enulose) 20 gm PO Q12 PRN PRN Reason: Diarrhea Metformin HCl (Glucophage) 1,000 mg PO BIDWM [facility] Last Admin: 02/14/19 16:49 Dose: 1,000 mg Metoprolol Tartrate (Lopressor) 100 mg PO Q12 [facility] Last Admin: 02/14/19 21:20 Dose: 100 mg Silver Sulfadiazine (Silvadene 1% 20 Gm) 1 ea EXT DAILY [facility] Last Admin: 02/14/19 08:40 Dose: 1 applic Zinc Acetate/Diphenhydramine (Benadryl 1% Zinc Acetate -0.1%) 1 applic TOP Q8 [facility] Last Admin: 02/14/19 21:20 Dose: 1 applic - Labs Labs: 02/13/19 07:00 02/13/19 07:00 Assessment and Plan (1) Acute CVA (cerebrovascular accident) Status: Acute (2) Diabetes mellitus with hyperglycemia Status: Acute (3) Right hemiparesis Status: Acute (4) Essential (primary) hypertension Status: Chronic
--- NOTE | 2019-02-15 05:02 | CP.PCM.PN ---
Subjective - Date & Time of Evaluation Date of Evaluation: 02/13/19 Objective - Vital Signs/Intake and Output Vital Signs (last 24 hours): Temp Pulse Resp BP Pulse Ox 97.2 F L 75 20 148/79 99 02/14/19 20:11 02/14/19 21:20 02/14/19 20:11 02/14/19 21:20 02/14/19 20:11 - Medications Medications: Current Medications Al Hydrox/Mg Hydrox/Simethicone (Maalox Plus 30 Ml) 30 ml PO Q6 PRN PRN Reason: GI distress Amlodipine Besylate (Norvasc) 10 mg PO DAILY [facility] Last Admin: 02/14/19 08:34 Dose: 10 mg Aspirin (Ecotrin) 81 mg PO DAILY [facility] Last Admin: 02/14/19 08:34 Dose: 81 mg Atorvastatin Calcium (Lipitor) 40 mg PO DAILY [facility] Last Admin: 02/14/19 08:34 Dose: 40 mg Clopidogrel Bisulfate (Plavix) 75 mg PO DAILY [facility] Last Admin: 02/14/19 08:34 Dose: 75 mg Enoxaparin Sodium (Lovenox) 40 mg SC DAILY [facility]; Protocol Last Admin: 02/14/19 08:35 Dose: 40 mg Insulin Human Lispro (Humalog) 0 units SC ACHS [facility]; Protocol Last Admin: 02/14/19 21:21 Dose: Not Given Lactulose (Enulose) 20 gm PO Q12 PRN PRN Reason: Diarrhea Metformin HCl (Glucophage) 1,000 mg PO BIDWM [facility] Last Admin: 02/14/19 16:49 Dose: 1,000 mg Metoprolol Tartrate (Lopressor) 100 mg PO Q12 [facility] Last Admin: 02/14/19 21:20 Dose: 100 mg Silver Sulfadiazine (Silvadene 1% 20 Gm) 1 ea EXT DAILY [facility] Last Admin: 02/14/19 08:40 Dose: 1 applic Zinc Acetate/Diphenhydramine (Benadryl 1% Zinc Acetate -0.1%) 1 applic TOP Q8 [facility] Last Admin: 02/14/19 21:20 Dose: 1 applic - Labs Labs: 02/13/19 07:00 02/13/19 07:00 Assessment and Plan (1) Acute CVA (cerebrovascular accident) Status: Acute (2) Diabetes mellitus with hyperglycemia Status: Acute (3) Right hemiparesis Status: Acute (4) Essential (primary) hypertension Status: Chronic
--- NOTE | 2019-02-15 05:03 | CP.PCM.PN ---
Subjective - Date & Time of Evaluation Date of Evaluation: 02/14/19 Objective - Vital Signs/Intake and Output Vital Signs (last 24 hours): Temp Pulse Resp BP Pulse Ox 97.2 F L 75 20 148/79 99 02/14/19 20:11 02/14/19 21:20 02/14/19 20:11 02/14/19 21:20 02/14/19 20:11 - Medications Medications: Current Medications Al Hydrox/Mg Hydrox/Simethicone (Maalox Plus 30 Ml) 30 ml PO Q6 PRN PRN Reason: GI distress Amlodipine Besylate (Norvasc) 10 mg PO DAILY [facility] Last Admin: 02/14/19 08:34 Dose: 10 mg Aspirin (Ecotrin) 81 mg PO DAILY [facility] Last Admin: 02/14/19 08:34 Dose: 81 mg Atorvastatin Calcium (Lipitor) 40 mg PO DAILY [facility] Last Admin: 02/14/19 08:34 Dose: 40 mg Clopidogrel Bisulfate (Plavix) 75 mg PO DAILY [facility] Last Admin: 02/14/19 08:34 Dose: 75 mg Enoxaparin Sodium (Lovenox) 40 mg SC DAILY [facility]; Protocol Last Admin: 02/14/19 08:35 Dose: 40 mg Insulin Human Lispro (Humalog) 0 units SC ACHS [facility]; Protocol Last Admin: 02/14/19 21:21 Dose: Not Given Lactulose (Enulose) 20 gm PO Q12 PRN PRN Reason: Diarrhea Metformin HCl (Glucophage) 1,000 mg PO BIDWM [facility] Last Admin: 02/14/19 16:49 Dose: 1,000 mg Metoprolol Tartrate (Lopressor) 100 mg PO Q12 [facility] Last Admin: 02/14/19 21:20 Dose: 100 mg Silver Sulfadiazine (Silvadene 1% 20 Gm) 1 ea EXT DAILY [facility] Last Admin: 02/14/19 08:40 Dose: 1 applic Zinc Acetate/Diphenhydramine (Benadryl 1% Zinc Acetate -0.1%) 1 applic TOP Q8 [facility] Last Admin: 02/14/19 21:20 Dose: 1 applic - Labs Labs: 02/13/19 07:00 02/13/19 07:00 Assessment and Plan (1) Acute CVA (cerebrovascular accident) Status: Acute (2) Diabetes mellitus with hyperglycemia Status: Acute (3) Right hemiparesis Status: Acute (4) Essential (primary) hypertension Status: Chronic
[2019-02-15] MEDS: Diphenhydramine 1% CREAM TOP SCH ×3 (06:27→21:36)
[2019-02-15] MEDS: Insulin Lispro (humaLOG) 100 Units/ml Inj SC SCH ×4 (07:15→21:37)
[2019-02-15] MEDS: Enoxaparin 40 mg Syringe SC SCH (09:01)
[2019-02-15] MEDS: Silver Sulfadiazine 1% Cream (20 gm) EXT SCH (09:02)
--- NOTE | 2019-02-15 18:01 | CP.PCM.PN ---
Subjective - Date & Time of Evaluation Date of Evaluation: 02/15/19 Time of Evaluation: 18:00 - Subjective Subjective: Patient seen in the room, doing ok denies sob/cp notes improvement in therapies good ROM in UE/LE on the right just really motor planning issue and limitations Objective - Vital Signs/Intake and Output Vital Signs (last 24 hours): Temp Pulse Resp BP Pulse Ox 97.0 F L 66 21 151/83 H 99 02/15/19 07:58 02/15/19 09:00 02/15/19 07:58 02/15/19 09:00 02/15/19 07:58 - Medications Medications: Current Medications Al Hydrox/Mg Hydrox/Simethicone (Maalox Plus 30 Ml) 30 ml PO Q6 PRN PRN Reason: GI distress Amlodipine Besylate (Norvasc) 10 mg PO DAILY [facility] Last Admin: 02/15/19 09:00 Dose: 10 mg Aspirin (Ecotrin) 81 mg PO DAILY [facility] Last Admin: 02/15/19 09:02 Dose: 81 mg Atorvastatin Calcium (Lipitor) 40 mg PO DAILY [facility] Last Admin: 02/15/19 09:00 Dose: 40 mg Clopidogrel Bisulfate (Plavix) 75 mg PO DAILY [facility] Last Admin: 02/15/19 09:01 Dose: 75 mg Enoxaparin Sodium (Lovenox) 40 mg SC DAILY [facility]; Protocol Last Admin: 02/15/19 09:01 Dose: 40 mg Insulin Human Lispro (Humalog) 0 units SC ACHS [facility]; Protocol Last Admin: 02/15/19 17:16 Dose: 2 unit Lactulose (Enulose) 20 gm PO Q12 PRN PRN Reason: Diarrhea Metformin HCl (Glucophage) 1,000 mg PO BIDWM [facility] Last Admin: 02/15/19 17:16 Dose: 1,000 mg Metoprolol Tartrate (Lopressor) 100 mg PO Q12 [facility] Last Admin: 02/15/19 08:59 Dose: 100 mg Silver Sulfadiazine (Silvadene 1% 20 Gm) 1 ea EXT DAILY [facility] Last Admin: 02/15/19 09:02 Dose: 1 applic Zinc Acetate/Diphenhydramine (Benadryl 1% Zinc Acetate -0.1%) 1 applic TOP Q8 [facility] Last Admin: 02/15/19 13:11 Dose: 1 applic - Labs Labs: 02/13/19 07:00 02/13/19 07:00
[2019-02-16 05:42] LABS: HEMOGLOBIN 14.6 g/dL (12.0-18.0); MEAN CELL VOLUME 87.7 fl (80.0-94.0); MEAN CORPUSCULAR HEMOGLOBIN 30.8 pg (27.0-31.0); MEAN CORPUSCULAR HGB CONC 35.1 g/dL (33.0-37.0); RBC 4.75 Mil/uL (4.40-5.90); RED CELL DISTRIBUTION WIDTH 12.8 % (11.5-14.5); WHITE BLOOD COUNT 9.4 K/uL (4.8-10.8)
[2019-02-16 06:06] LABS: BLOOD UREA NITROGEN 20 mg/dl (9-20); CALCIUM 9.3 mg/dL (8.4-10.2); GFR NON-AFRICAN AMERICAN > 60
[2019-02-16] MEDS: Insulin Lispro (humaLOG) 100 Units/ml Inj SC SCH ×4 (07:09→21:11)
[2019-02-16] MEDS: Diphenhydramine 1% CREAM TOP SCH ×3 (07:09→21:17)
[2019-02-16] MEDS: Enoxaparin 40 mg Syringe SC SCH (08:20)
[2019-02-16] MEDS: Silver Sulfadiazine 1% Cream (20 gm) EXT SCH (08:25)
--- NOTE | 2019-02-16 13:08 | PCM.PSYTMC ---
Acute Rehab Team Conference - - Vital Signs: Vital Signs (Last 8 Hours): Vital Signs 02/16/19 02/16/19 02/16/19 08:17 08:18 08:21 Temperature 97.5 F L Pulse Rate 76 86 76 Respiratory 20 Rate Blood Pressure 147/84 130/71 147/84 O2 Sat by Pulse 97 Oximetry 02/16/19 09:27 Temperature 97.5 F L Pulse Rate 76 Respiratory 20 Rate Blood Pressure 147/84 O2 Sat by Pulse Oximetry Pain: 0 - Precautions: Precautions: Fall Prevention - Medications/Other Issues: Comment: Refusing SCD and Z Boots at nite despite encouragement and education. Agreeable to elevate rt leg while in bed. Agreeable to AE Hose during the day - Consults: Comment: Dr. Oneal Podiatry toe nails trimming - Skin: Incision Site: Rt posterior ankle abrasion no drainage Incision Line Treatment: Continue with silvadene and dsd - Toileting: Toileting: Minimal Assistance - Bladder Management: Bladder Pattern: Normal Voiding Method: Bedside Commode, Urinal Bladder Management: Minimal Assistance Other Intervention:: Continent of bowel/bladder. Uses commode/urinal with min assist - Transfers: Transfers: Minimal Assistance - ADL's: ADL's: Moderate Assistance - Pain Management: Other Intervention:: No complaints of pain. Reassess every 8 hours and prn - Patient/Family Teaching: Other Intervention:: Medication teaching/management. Safety Precautions. Hand Hygiene - Goals/Time Frame: Comment: as per POC - Provider: Registered Nurse:: Emily Yuan Physical Therapy - Bed Mobility Bed Mobility: Verbal Cues, Minimal Assistance - Transfers Wheelchair to Mat: Verbal Cues, Minimal Assistance Sit to Stand: Verbal Cues, Minimal Assistance Comment: greater difficulty noted during stand to sit component of t/f. vc for sequencing and safety (to scoot fwd prior to task, coordinating the turn during SPT) - Ambulation Level of Assistance: Verbal Cues, Moderate Assistance Distance (ft.): 125 Orthoses: N/A Comment: x1, 100' x 1 w/ close w/c using L ax crutch, 3 point gait. vc for attn to task. PT demo of gait pattern in b/t bouts. max vc/tc for sequencing, to abd RLE for improved CHUCKY, wt shifting. occ vc for upright posture/to look up during task, for midline orientation. reminders to engage glutes and core during task. initial contact R foot flat-->early R foot flat, step length and CHUCKY varies. quality of gait declines w/ fatigue as does incr'd anterior and lateral to the R instability. Most LOB, pt w/ mod/min A able to recover and reset BLE w/ incr CHUCKY. genu valgum increases when quality declines. Best quality of gait occurs when core/glutes are engaged and pt follows through with command to exaggerate R hip abd ("take very wide step"). difficulty navigating turns, obstacles and walking in straight path - Stair Negotiation Stairs: Level of Assistance: Verbal Cues, Moderate Assistance, Maximum Assistance Number of Stairs: 4 Comment: 6 in steps w/ mod/max A x1 and CG/min A x 1 (2nd helper for RUE mgmt and to assist at top of practice stairs), step to pattern. vc for attn to task. PT demo sequencing and pt able to verbalize it prior to task. Assist needed t/o task for R hand grasp on HR (2nd helper). assist to advance RLE during asc to clear foot and for R hip abd, dean during desc. assist needed when wt shifting off limb to advance LLE. Pt w/ ant instability during desc when CHUCKY is decr'd - Standing Balance Static Stand: Minimal Assistance Comment: supported - Pain Pain (assessed during therapy session): 0 Comment: N/A - Insight/Carryover Insight/Carryover: Fair - Patient/Family Education Comment: DME, cardiac prec, safety, therapy schedule, PT goals, mobility, POC, use of call covarrubias, attention to tasks, attention to RUE, HEP for RLE, DBE, posture, CVA recovery topics - Assessment/Plan Assessment: 58 yo male continues his acute rehab stay at [facility] s/p L MCA CVA. Pt's fxnl status fluctuates but he is making overall improvements w/ fxnl mob, neuroms impairments, balance, activity tolerance and safety. Currently he is ambulating w/ a L ax crutch. Cont'd skilled PT recommended to address deficits. - Goals Timeframe: 1 week Goals: -rolling in bed with supervision. -supine to/from sit with supervision. -stand pivot transfers without device with min A/CG. -sit to/from stand henriquez sfers with appropriate single sided device with min A/CG. -ambulate 150 feet with L axillary crutch with moderate assistance. -negotiate 4 training steps with single rail with mod A - Provider Physical Therapist:: Halley Villarreal License Number:: [id number] Occupational Therapy - Arousal/Attention/Orientation Level of Consciousness: Awake, Alert Patient Orientation: Person, Place, Time, Appropriate to Age, Appropriate to Situation Assessment Comment: -impaired proprioception/kinesthesia, impaired stereognosis, impaired light/dull touch in RUE/RLE. -impaired postural control seated/standing >in standing. -the above impact on progress and overall functional status - ADL/IADL Self Feeding: Independent, Set-up Help Grooming: Independent, Set-up Help Bathing-Upper Ext: Verbal Cues, Set-up Help, Minimal Assistance Bathing-Lower Ext: Verbal Cues, Set-up Help, Moderate Assistance Dressing-Upper Ext: Supervision, Verbal Cues, Set-up Help Dressing-Lower Ext: Verbal Cues, Set-up Help, Moderate Assistance Comment: -veronique-techniques for upper/lower body dressing. -cross over technique for lower body dressing while seated in w/c - Sitting Balance Static Sitting: Supervision Dynamic Sitting: Reaches across midline, Reaches out of base of support, Reaches within base of support, Contact Guard Assist, Minimal Assistance Comment: seated unsupported - Transfers Wheelchair to Bed Transfers: Verbal Cues, Set-up Help, Minimal Assistance, Moderate Assistance Toilet Transfers: Verbal Cues, Set-up Help, Minimal Assistance, Moderate Assistance Comment: *min-mod assist and verbal cues respectively to L and R side. -shower transfer: min/mod assist and verbal cues--min assist & verbal cues towards L side and Mod assisat and verbal cues towards R side - Wheelchair Management Level of Assistance: Modified Independent, Supervision, Verbal Cues Distance (ft.): 75 - Upper Extremity Status Right Upper Extremity Comment: *PROM : is WNLS. *AROM is WFLS, strength 4-/5. +dysmetria, incoordination, impaired sensation(stereognosis, kinesthesia/proprioception, light/dull touch) Left Upper Extremity Comment: A/PROm is WNLS; strength 5/5 - Pain Pain (assessed during therapy session): 0 - Insight/Carryover Insight/Carryover: Good - Patient/Family Education Comment: -ongoing for adls, transfers and mobility training using adaptive/compensatory strategies. -veronique-techniques for upper/lower body dressi ng. -issued HEP forRUE management/ROM exercises, gross/fine motor function. - w/c management/propulsion, safety awareness. -energy conservation/work simplication strategies. -bed & w/c positioning for R heel protection; pt wit. h R heel blister thus NO shoes applied on R foot. -RUE hand over hand to normalize speed, force, proper placement - Assessment/Plan Assessment: Pt is a 58 year old R hand dominant male with dx: acute CVA with R hemiparesis. Precautions: falls(self release seatbelt with alarm), cardiac, R laptray, DM. Pt continues to demonstrate staedy progress in functional performance of self care, transfers and mobility, RUE gross/fine motor function, but continues to need cues to attend & safely manage RUE during functional activities. Pt limited by the following impairments: -impaired strength/motor control in RUE/RLE, gross/fine motor function. -impaired activity tolerance/endurance. -impaired postural control. -impaired sensation RUE. -impaired kinesthesia, proprioception and overall body awareness. - impaired safety awareness. -impaired standing balance/tolerance. -impaired knowledge of adaptive/compensatory strategies. -impaired activity tolerance---which all impact on self care, functional transfers/mobility. Pt will continue to benefit from skilled Occupational Therapy to address above impairments to maximize function in self care, transfers and mobility using adaptive/compensatory strategies, + DME needs assessment, bed and w/c positioning, update HEP. Pt may likely need MANDI 2' extent of sensorimotor deficits, coodination/balance deficits; progress & functional status affected by these deficits. Pt also lives alone and will require 24 hour care/assistance if discharge home. *Goal: intermittent Supervision/ Min assistance for self care, transfers and mobility using adaptive/compensatory strategies - Goals Timeframe: 8 days Comment: *FEEDING: Mod I. *GROOMING: I/setup seated. *UPPER BODY DRESSING: I/setup seated. *LOWER BODY DRESSING: Min assist and verbal cues with assistive devices prn. *BATHING: Moderate assist and verbal cues seated intermittently. *TRANSFERS: Min assist and verbal cues <->bed, commode, chair and shower bench, oter surfaces. *RUE FUNCTION: Increase strength to 4/5 throughout, covered button maker to 30-lbs, incraese ccordination to functional limits for bimanual tasks--fastening buttons, oepning containers, using RUE as gross assist. *TOILETING: min assist and verbal cues - Provider Occupational Therapist:: Kinga Jaime License Number: [id number] Speech Therapy - Consult Information Patient on Program: Yes Medical Diagnosis: CVA Treatment Diagnosis: Cognitive Communication Impairment - Assessment Problem Solving Impairment: Mild Memory Impairment: Mild - Plan Assessment: Pt currently presents with a mild cognitive communication imapirment with deficits noted in the areas of attention and memory. Plan: Continue Speech/Language Therapy Frequency: 3-5 times per week Duration: 1 week - Provider Therapist: Tracey Cortez License Number: [id number] Recreational Therapy - Participation Participation: Participates in Individual and/or Group Sessions - Attendance Attendance: 3-5 times per week - Activities Leisure Activities: Cards and Games - Socialization Level of Socialization: Initiates/interacts freely with care givers and peer - Diversional Time Diversional Time: listening to music, socializing - Assessment Assessment/Plan: Pt is agreeable to participate in 1:1 recreation therapy sessions offered throughout stay on unit. Pt is oriented to leisure tasks specifically related to fine motor control, problem solving, and carrying over stratgies and directions of tasks. Pt requires supervision-min A throughout all leisure tasks for carryover of directions. Pt requires leisure education during each session for pt to understand benefits and purpose of recreation therapy. Pt attended stroke education group and verbalized understanding of topics discussed. Pt will continue to benefit from participating in recreation therapy sessions throughout stay on unit. Problems Currently Limiting Participation: R UE and LE weakness, decrease leisure awareness level Goals and Time Frame: Pt will tolerate 30 minutes of recreation therapy session with min A by date of discharge. - Provider Therapist: Maria T Chavez Nutrition - Current Diet Current Diet/Supplement/Feedings: Low consistent CHO heart healthy thin liquids - Appetite Percent Meal Consumed: 50-74% - Assessment/Goals/Time Frame Assessments/Goals/Time Frame: Pt at moderate nutritional risk. goals: 1. Pt to consume 75-100% of meals(partially met,continue). 2. Blood glucoses to be between 70-180 mg/dl(HgbA1C to trend downward over next few months)(partially met, continue). Follow-up due on 02/16/2019 - Provider Provider: Yocasta Collins Case Management - Psychosocial Assessment Support Systems: Ra Abreu (brother) - [phone] Psychological Interventions/Needs: Patient is AAOx3 and able to verbalize needs. Discharge Concerns: Patient lives alone and has limited support. Patient still requiring assist. Patient/Family Meeting: CM met with patient and rehab team. Intervention/Goal/Outcome: 1. Goal: min A 2. Plan: MANDI 3. discuss recommendations or MANDI with patient and provide patient with MANDI list and request that he chooses a top 3 in order of preference 4. Plan for transfer to [facility] 5. initiate referral process 6. continued emoitonal support - Discharge Plan Discharge Plan: Subacute care - Provider Provider: Loreto Stacy License Number: [id number] Rehabilitation Plan - Treatment Plan Treatment Plan: Physical Therapy, Occupational Therapy, Speech, Dietary, Patient/Family Education - Discharge Plan Estimated Date of Discharge: 02/26/19 Discharge to: Subacute
--- NOTE | 2019-02-16 13:42 | CP.PCM.PN ---
Subjective - Date & Time of Evaluation Date of Evaluation: 02/16/19 Time of Evaluation: 13:38 - Subjective Subjective: Keven Whyte born , right hand dominant who suffered a left MCA infarct with right HP. He has not had a medical doctor and has now been diagnosed with both DM and HTN and he is a heavy smoker for 17 years. Poor vision which I had not noted prior. Objective - Vital Signs/Intake and Output Vital Signs (last 24 hours): Temp Pulse Resp BP Pulse Ox 97.5 F L 76 20 147/84 97 02/16/19 09:27 02/16/19 09:27 02/16/19 09:27 02/16/19 09:27 02/16/19 08:17 - Medications Medications: Current Medications Al Hydrox/Mg Hydrox/Simethicone (Maalox Plus 30 Ml) 30 ml PO Q6 PRN PRN Reason: GI distress Amlodipine Besylate (Norvasc) 10 mg PO DAILY [facility] Last Admin: 02/16/19 08:21 Dose: 10 mg Aspirin (Ecotrin) 81 mg PO DAILY [facility] Last Admin: 02/16/19 08:20 Dose: 81 mg Atorvastatin Calcium (Lipitor) 40 mg PO DAILY [facility] Last Admin: 02/16/19 08:20 Dose: 40 mg Clopidogrel Bisulfate (Plavix) 75 mg PO DAILY [facility] Last Admin: 02/16/19 08:24 Dose: 75 mg Enoxaparin Sodium (Lovenox) 40 mg SC DAILY [facility]; Protocol Last Admin: 02/16/19 08:20 Dose: 40 mg Insulin Human Lispro (Humalog) 0 units SC [facility]; Protocol Last Admin: 02/16/19 12:39 Dose: 3 unit Lactulose (Enulose) 20 gm PO Q12 PRN PRN Reason: Diarrhea Metformin HCl (Glucophage) 1,000 mg PO BIDWM [facility] Last Admin: 02/16/19 08:19 Dose: 1,000 mg Metoprolol Tartrate (Lopressor) 100 mg PO Q12 [facility] Last Admin: 02/16/19 08:18 Dose: 100 mg Silver Sulfadiazine (Silvadene 1% 20 Gm) 1 ea EXT DAILY [facility] Last Admin: 02/16/19 08:25 Dose: 1 applic Zinc Acetate/Diphenhydramine (Benadryl 1% Zinc Acetate -0.1%) 1 applic TOP Q8 [facility] Last Admin: 02/16/19 07:09 Dose: 1 applic - Labs Labs: 02/16/19 05:11 02/16/19 05:11 - Constitutional Appears: Well, Non-toxic, No Acute Distress - Head Exam Head Exam: ATRAUMATIC, NORMAL INSPECTION, NORMOCEPHALIC - Eye Exam Eye Exam: EOMI - ENT Exam ENT Exam: Mucous Membranes Moist - Respiratory Exam Respiratory Exam: NORMAL BREATHING PATTERN - Cardiovascular Exam Cardiovascular Exam: REGULAR RHYTHM - GI/Abdominal Exam GI & Abdominal Exam: Normal Bowel Sounds. absent: Guarding - Extremities Exam Extremities Exam: absent: Calf Tenderness - Neurological Exam Neurological Exam: Alert, Awake. absent: Normal Gait Neuro motor strength exam: Left Upper Extremity: 5, Right Upper Extremity: 3, Left Lower Extremity: 5, Right Lower Extremity: 3 - Psychiatric Exam Psychiatric exam: Normal Affect, Normal Mood - Skin Skin Exam: Warm Assessment and Plan - Assessment and Plan (Free Text) Assessment: PT/OT to continue to help increase functional independence Team conference for d/c planning. He is going to need MANDI and is open to this. I have discussed this at length with him Pain: controlled Vascular: no evidence of DVT GI: No evidence of constipation or diarrhea Patient continues to be an excellent acute rehabilitation candidate and will have continued focused speech, PT, OT and recreational therapy to help facilitate a safe and appropriate d/c plan The patients plan was discussed in great detail in team conference. This was then discussed with the patient at length. The discussions directly impact on the patients plan of care. Please see the note for more details
--- NOTE | 2019-02-17 00:39 | CP.PCM.PN ---
Subjective - Date & Time of Evaluation Date of Evaluation: 02/15/19 Objective - Vital Signs/Intake and Output Vital Signs (last 24 hours): Temp Pulse Resp BP Pulse Ox 97.4 F L 89 20 168/90 H 98 02/16/19 20:17 02/16/19 21:17 02/16/19 20:17 02/16/19 21:17 02/16/19 20:17 - Medications Medications: Current Medications Al Hydrox/Mg Hydrox/Simethicone (Maalox Plus 30 Ml) 30 ml PO Q6 PRN PRN Reason: GI distress Amlodipine Besylate (Norvasc) 10 mg PO DAILY [facility] Last Admin: 02/16/19 08:21 Dose: 10 mg Aspirin (Ecotrin) 81 mg PO DAILY [facility] Last Admin: 02/16/19 08:20 Dose: 81 mg Atorvastatin Calcium (Lipitor) 40 mg PO DAILY [facility] Last Admin: 02/16/19 08:20 Dose: 40 mg Clopidogrel Bisulfate (Plavix) 75 mg PO DAILY [facility] Last Admin: 02/16/19 08:24 Dose: 75 mg Enoxaparin Sodium (Lovenox) 40 mg SC DAILY [facility]; Protocol Last Admin: 02/16/19 08:20 Dose: 40 mg Insulin Human Lispro (Humalog) 0 units SC [facility]; Protocol Last Admin: 02/16/19 21:11 Dose: Not Given Lactulose (Enulose) 20 gm PO Q12 PRN PRN Reason: Diarrhea Metformin HCl (Glucophage) 1,000 mg PO BIDWM [facility] Last Admin: 02/16/19 16:33 Dose: 1,000 mg Metoprolol Tartrate (Lopressor) 100 mg PO Q12 [facility] Last Admin: 02/16/19 21:17 Dose: 100 mg Silver Sulfadiazine (Silvadene 1% 20 Gm) 1 ea EXT DAILY [facility] Last Admin: 02/16/19 08:25 Dose: 1 applic Zinc Acetate/Diphenhydramine (Benadryl 1% Zinc Acetate -0.1%) 1 applic TOP Q8 [facility] Last Admin: 02/16/19 21:17 Dose: 1 applic - Labs Labs: 02/16/19 05:11 02/16/19 05:11 Assessment and Plan (1) Acute CVA (cerebrovascular accident) Status: Acute (2) Diabetes mellitus with hyperglycemia Status: Acute (3) Right hemiparesis Status: Acute (4) Essential (primary) hypertension Status: Chronic
--- NOTE | 2019-02-17 00:40 | CP.PCM.PN ---
Subjective - Date & Time of Evaluation Date of Evaluation: 02/16/19 Objective - Vital Signs/Intake and Output Vital Signs (last 24 hours): Temp Pulse Resp BP Pulse Ox 97.4 F L 89 20 168/90 H 98 02/16/19 20:17 02/16/19 21:17 02/16/19 20:17 02/16/19 21:17 02/16/19 20:17 - Medications Medications: Current Medications Al Hydrox/Mg Hydrox/Simethicone (Maalox Plus 30 Ml) 30 ml PO Q6 PRN PRN Reason: GI distress Amlodipine Besylate (Norvasc) 10 mg PO DAILY [facility] Last Admin: 02/16/19 08:21 Dose: 10 mg Aspirin (Ecotrin) 81 mg PO DAILY [facility] Last Admin: 02/16/19 08:20 Dose: 81 mg Atorvastatin Calcium (Lipitor) 40 mg PO DAILY [facility] Last Admin: 02/16/19 08:20 Dose: 40 mg Clopidogrel Bisulfate (Plavix) 75 mg PO DAILY [facility] Last Admin: 02/16/19 08:24 Dose: 75 mg Enoxaparin Sodium (Lovenox) 40 mg SC DAILY [facility]; Protocol Last Admin: 02/16/19 08:20 Dose: 40 mg Insulin Human Lispro (Humalog) 0 units SC A[facility]S [facility]; Protocol Last Admin: 02/16/19 21:11 Dose: Not Given Lactulose (Enulose) 20 gm PO Q12 PRN PRN Reason: Diarrhea Metformin HCl (Glucophage) 1,000 mg PO BIDWM [facility] Last Admin: 02/16/19 16:33 Dose: 1,000 mg Metoprolol Tartrate (Lopressor) 100 mg PO Q12 [facility] Last Admin: 02/16/19 21:17 Dose: 100 mg Silver Sulfadiazine (Silvadene 1% 20 Gm) 1 ea EXT DAILY [facility] Last Admin: 02/16/19 08:25 Dose: 1 applic Zinc Acetate/Diphenhydramine (Benadryl 1% Zinc Acetate -0.1%) 1 applic TOP Q8 [facility] Last Admin: 02/16/19 21:17 Dose: 1 applic - Labs Labs: 02/16/19 05:11 02/16/19 05:11 Assessment and Plan (1) Acute CVA (cerebrovascular accident) Status: Acute (2) Diabetes mellitus with hyperglycemia Status: Acute (3) Right hemiparesis Status: Acute (4) Essential (primary) hypertension Status: Chronic
[2019-02-17] MEDS: Diphenhydramine 1% CREAM TOP SCH ×3 (06:39→21:07)
[2019-02-17] MEDS: Insulin Lispro (humaLOG) 100 Units/ml Inj SC SCH ×4 (06:45→21:05)
[2019-02-17] MEDS: Enoxaparin 40 mg Syringe SC SCH (08:17)
[2019-02-17] MEDS: Silver Sulfadiazine 1% Cream (20 gm) EXT SCH (08:18)
[2019-02-18] MEDS: Insulin Lispro (humaLOG) 100 Units/ml Inj SC SCH ×4 (07:14→21:17)
[2019-02-18] MEDS: Diphenhydramine 1% CREAM TOP SCH ×3 (07:14→21:17)
[2019-02-18] MEDS: Enoxaparin 40 mg Syringe SC SCH (08:25)
[2019-02-18] MEDS: Silver Sulfadiazine 1% Cream (20 gm) EXT SCH (08:28)
--- NOTE | 2019-02-18 17:39 | CP.PCM.PN ---
Subjective - Date & Time of Evaluation Date of Evaluation: 02/18/19 Time of Evaluation: 17:37 - Subjective Subjective: Keven Whyte born , right hand dominant who suffered a left MCA infarct with right HP. He has not had a medical doctor and has now been diagnosed with both DM and HTN and he is a heavy smoker for 17 years. He continues to make gains but is not entirely confident that he is progressing. I have dispelled him of this notion He will still need to go to [facility] but is also making good gains l Objective - Vital Signs/Intake and Output Vital Signs (last 24 hours): Temp Pulse Resp BP Pulse Ox 97.7 F 77 19 141/79 97 02/18/19 08:47 02/18/19 08:47 02/18/19 08:47 02/18/19 08:47 02/18/19 08:47 - Medications Medications: Current Medications Al Hydrox/Mg Hydrox/Simethicone (Maalox Plus 30 Ml) 30 ml PO Q6 PRN PRN Reason: GI distress Amlodipine Besylate (Norvasc) 10 mg PO DAILY [facility] Last Admin: 02/18/19 08:27 Dose: 10 mg Aspirin (Ecotrin) 81 mg PO DAILY [facility] Last Admin: 02/18/19 08:26 Dose: 81 mg Atorvastatin Calcium (Lipitor) 40 mg PO DAILY [facility] Last Admin: 02/18/19 08:26 Dose: 40 mg Clopidogrel Bisulfate (Plavix) 75 mg PO DAILY [facility] Last Admin: 02/18/19 08:25 Dose: 75 mg Enoxaparin Sodium (Lovenox) 40 mg SC DAILY [facility]; Protocol Last Admin: 02/18/19 08:25 Dose: 40 mg Insulin Human Lispro (Humalog) 0 units SC ACHS [facility]; Protocol Last Admin: 02/18/19 17:30 Dose: 3 unit Lactulose (Enulose) 20 gm PO Q12 PRN PRN Reason: Diarrhea Metformin HCl (Glucophage) 1,000 mg PO BIDWM [facility] Last Admin: 02/18/19 17:30 Dose: 1,000 mg Metoprolol Tartrate (Lopressor) 100 mg PO Q12 [facility] Last Admin: 02/18/19 08:26 Dose: 100 mg Silver Sulfadiazine (Silvadene 1% 20 Gm) 1 ea EXT DAILY [facility] Last Admin: 02/18/19 08:28 Dose: 1 applic Zinc Acetate/Diphenhydramine (Benadryl 1% Zinc Acetate -0.1%) 1 applic TOP Q8 [facility] Last Admin: 02/18/19 14:29 Dose: 1 applic - Labs Labs: 02/16/19 05:11 02/16/19 05:11 - Constitutional Appears: Non-toxic, No Acute Distress - Head Exam Head Exam: ATRAUMATIC, NORMAL INSPECTION, NORMOCEPHALIC - Eye Exam Eye Exam: EOMI - ENT Exam ENT Exam: Mucous Membranes Moist - Respiratory Exam Respiratory Exam: NORMAL BREATHING PATTERN - Cardiovascular Exam Cardiovascular Exam: REGULAR RHYTHM - GI/Abdominal Exam GI & Abdominal Exam: absent: Distended, Firm - Extremities Exam Extremities Exam: absent: Calf Tenderness - Neurological Exam Neurological Exam: Alert, CN II-XII Intact Neuro motor strength exam: Left Upper Extremity: 5, Right Upper Extremity: 3, Left Lower Extremity: 5, Right Lower Extremity: 3 - Psychiatric Exam Psychiatric exam: Anxious Assessment and Plan - Assessment and Plan (Free Text) Assessment: PT/OT to continue to help increase functional independence Team conference for d/c planning Pain: controlled Vascular: no evidence of DVT GI: No evidence of constipation or diarrhea Patient continues to be an excellent acute rehabilitation candidate and will have continued focused speech, PT, OT and recreational therapy to help facilita te a safe and appropriate d/c plan
[2019-02-19] MEDS: Diphenhydramine 1% CREAM TOP SCH ×3 (05:47→21:31)
[2019-02-19] MEDS: Insulin Lispro (humaLOG) 100 Units/ml Inj SC SCH ×4 (07:19→21:33)
[2019-02-19] MEDS: Silver Sulfadiazine 1% Cream (20 gm) EXT SCH (08:32)
[2019-02-19] MEDS: Enoxaparin 40 mg Syringe SC SCH (08:33)
[2019-02-19 08:57] LABS: HEMOGLOBIN 13.9 g/dL (12.0-18.0); MEAN CELL VOLUME 88.5 fl (80.0-94.0); MEAN CORPUSCULAR HEMOGLOBIN 30.8 pg (27.0-31.0); MEAN CORPUSCULAR HGB CONC 34.8 g/dL (33.0-37.0); RBC 4.53 Mil/uL (4.40-5.90); RED CELL DISTRIBUTION WIDTH 12.5 % (11.5-14.5); WHITE BLOOD COUNT 10.8 K/uL (4.8-10.8)
[2019-02-19 13:05] LABS: BLOOD UREA NITROGEN 15 mg/dl (9-20); CALCIUM 8.9 mg/dL (8.4-10.2); GFR NON-AFRICAN AMERICAN > 60
--- NOTE | 2019-02-19 14:30 | CP.PCM.CON ---
History of Present Illness - History of Present Illness History of Present Illness: Podiatry consult note for Dr. Valdez, 58 year old male with PMHx of Acute CVA with Right Hemiparesis and recently diagnosed Type II DM was seen and evaluted for a right heel wound. Patient states he does not recall when the wound developed, but thinks it could be from sitting in the wheelchair. Patient denies any pain to the site. Patient states wound was being treated by Wound care. Patient denies any other pedal complaints Pmhx: diabetes, htn pshx: appendectomy allergies: NFKDA Review of Systems - Review of Systems All systems: reviewed and no additional remarkable complaints except Review of Systems: As per HPI Past Patient History - Past Medical History & Family History Past Medical History?: Yes - Past Social History Smoking Status: Heavy Smoker > 10 Cigarettes Daily Drugs: Cannabis Home Situation {Lives}: Alone - CARDIAC Hx Hypertension: Yes - PULMONARY Hx Respiratory Disorders: No Hx Asthma: No Hx Bronchitis: No Hx Chronic Obstructive Pulmonary Disease (COPD): No Hx Emphysema: No Hx Lung Cancer: No Hx Pneumonia: No Hx Pulmonary Edema: No Hx Pulmonary Embolism: No Hx Respiratory Aspiration: No Hx Respiratory Tract Infection: No Hx Sleep Apnea: No Hx Tuberculosis: No - NEUROLOGICAL Hx Neurological Disorder: Yes Hx Alzheimer's Disease: No HX Cerebrovascular Accident: Yes Hx Dementia: No Hx Dizziness: No Hx Meningitis: No Hx Migraine: No Hx Multiple Sclerosis: No Hx Paralysis: No Hx Parkinson's Disease: No Hx Seizures: No Hx Syncope: No Hx Transient Ischemic Attacks (TIA): No Hx Vertigo: No - HEENT Hx HEENT Problems: No Hx Blind: No Hx Cataracts: No Hx Deafness: No Hx Difficulty Chewing: No Hx Epistaxis: No Hx Glaucoma: No Hx Macular Degeneration: No Hx Sinusitis: No - RENAL Hx Chronic Kidney Disease: No Hx Dialysis: No Hx Kidney Stones: No Hx Neurogenic Bladder: No Hx Pyelonephritis: No Hx Renal (Kidney) Cancer: No Hx Renal Failure: No - ENDOCRINE/METABOLIC Hx Diabetes Mellitus Type 2: Yes - HEMATOLOGICAL/ONCOLOGICAL Hx Blood Disorders: No Hx AIDS: No Hx Anemia: No Hx Blood Transfusions: No Hx Blood Transfusion Reaction: No Hx Bruising: No Hx Cancer: No Hx Chemotherapy: No Hx Cirrhosis: No Hx Gum Bleeding: No Hx Hemophilia: No Hx Hepatitis A: No Hx Hepatitis B: No Hx Hepatitis C: No Hx Human Immunodeficiency Virus (HIV): No Hx Leukemia: No Hx Metastesis: No Hx Shingles: No Hx Sickle Cell Disease: No Hx Unexplained Bleeding: No Hx von Willebrand's Disease: No - INTEGUMENTARY Hx Dermatological Problems: No Hx Basil Cell: No Hx Leahy: No Hx Cellulitis: No Hx Eczema: No Hx Melanoma: No Hx Psoriasis: No Hx Squamous Cell: No - MUSCULOSKELETAL/RHEUMATOLOGICAL Hx Musculoskeletal Disorders: Yes Hx Arthritis: No Hx Back Pain: No Hx Degenerative Joint Disease: No Hx Falls: Yes Hx Fractures: No Hx Gout: No Hx Herniated Disk: No Hx Myasthenia Gravis: No Hx Osteoarthritis: No Hx Osteomyelitis: No Hx Osteoporosis: No Hx Rhabdomyolysis: No Hx Rheumatoid Arthritis: No Hx Spinal Stenosis: No Hx Unsteady Gait: Yes - GASTROINTESTINAL Hx Gastrointestinal Disorders: No Hx Bowel Surgery: No Hx Clostridium Difficile: No Hx Colitis: No Hx Colostomy: No Hx Constipation: No Hx Crohn's Disease: No Hx Diarrhea: No Hx Diverticulitis: No Hx Esophageal Varices: No Hx Fatty Liver Disease: No Hx Gall Bladder Disease: No Hx Gastritis: No Hx Gastroesophageal Reflux: No Hx Hemorrhoids: Yes Hx Ileostomy: No Hx Irritable Bowel: No Hx Liver Failure: No Hx Nausea: No Hx Pancreatitis: No HX Swallowing Problems: No Hx Ulcer: No Hx Vomiting: No - GENITOURINARY/GYNECOLOGICAL Hx Genitourinary Disorders: No Hx Bladder Cancer: No Hx Bladder Stone: No Hx Hematuria: No Hx Incontinence: No Hx Prostate Cancer: No Hx Prostate Problems: No Hx Reproductive Disorders: No Hx Sexually Transmitted Disorders: No Hx Urinary Tract Infection: No - PSYCHIATRIC Hx Psychophysiologic Disorder: Yes Hx Anxiety: No Hx Bipolar Disorder: No Hx Depression: No Hx Emotional Abuse: No Hx Hallucinations: No Hx Panic Symptoms: No Hx Paranoia: No Hx Post Traumatic Stress Disorder: No Hx Psychosis: No Hx Physical Abuse: No Hx Schizophrenia: No Hx Sexual Abuse: No Hx Substance Use: Yes (marijunana) - SURGICAL HISTORY Hx Surgeries: Yes Hx Abdominal Aortic Aneurysm Repair: No Hx Amputation: No Hx Angiogram: No Hx Angioplasty: No Hx Appendectomy: Yes (at age 12) Hx Arteriovenous Shunt: No Hx Arthroscopy: No Hx Bile Duct Stent: No Hx Breast Biopsy: No Hx Cataract Extraction: No Hx Cardiac Catheterization: No Hx Carotid Endarterectomy: No Hx Section: No Hx Cholecystectomy: No Hx Coronary Artery Bypass Graft: No Hx Coronary Stent: No Hx Dilation and Curettage: No Hx Eye Surgery: No Hx Femoral-Popliteal Bypass Graft: No Hx Gastric Bypass Surgery: No Hx Hysterectomy: No Hx Joint Replacement: No Hx Kidney Transplant: No Hx Liver Transplant: No Hx Mastectomy: No Hx Musculoskeletal Surgery: No Hx Open Heart Surgery: No Hx Open Reduction Internal Fixation: No Hx Orthopedic Surgery: No Hx Parathyroidectomy: No Hx Penile Implant: No Hx Pulmonary Surgery: No Hx Splenectomy: No Hx Thyroidectomy: No Hx Tonsillectomy: No Hx Tubal Ligation: No Hx Valve Replacement: No Hx Vascular Surgery: No Hx Vascular Access Device: No - ANESTHESIA Hx Anesthesia: Yes Hx Anesthesia Reactions: No Hx Malignant Hyperthermia: No Has any member of the family had a problem w/ anesthesia?: No Meds Allergies/Adverse Reactions: Allergies Allergy/AdvReac Type Severity Reaction Status Date / Time No Known Allergies Allergy Verified 01/29/19 03:48 - Medications Medications: Current Medications Al Hydrox/Mg Hydrox/Simethicone (Maalox Plus 30 Ml) 30 ml PO Q6 PRN PRN Reason: GI distress Amlodipine Besylate (Norvasc) 10 mg PO DAILY [facility] Last Admin: 02/19/19 08:32 Dose: 10 mg Aspirin (Ecotrin) 81 mg PO DAILY [facility] Last Admin: 02/19/19 08:31 Dose: 81 mg Atorvastatin Calcium (Lipitor) 40 mg PO DAILY [facility] Last Admin: 02/19/19 08:31 Dose: 40 mg Clopidogrel Bisulfate (Plavix) 75 mg PO DAILY [facility] Last Admin: 02/19/19 08:32 Dose: 75 mg Enoxaparin Sodium (Lovenox) 40 mg SC DAILY [facility]; Protocol Last Admin: 02/19/19 08:33 Dose: 40 mg Insulin Human Lispro (Humalog) 0 units SC [facility]; Protocol Last Admin: 02/19/19 12:02 Dose: 4 unit Lactulose (Enulose) 20 gm PO Q12 PRN PRN Reason: Diarrhea Metformin HCl (Glucophage) 1,000 mg PO BIDWM [facility] Last Admin: 02/19/19 08:31 Dose: 1,000 mg Metoprolol Tartrate (Lopressor) 100 mg PO Q12 [facility] Last Admin: 02/19/19 08:31 Dose: 100 mg Silver Sulfadiazine (Silvadene 1% 20 Gm) 1 ea EXT DAILY [facility] Last Admin: 02/19/19 08:32 Dose: 1 applic Zinc Acetate/Diphenhydramine (Benadryl 1% Zinc Acetate -0.1%) 1 applic TOP Q8 [facility] Last Admin: 02/19/19 13:31 Dose: 1 applic Physical Exam - Constitutional Appears: Well, Non-toxic, No Acute Distress - Head Exam Head Exam: ATRAUMATIC, NORMOCEPHALIC - Extremities Exam Additional comments: Bilateral lower extremity exam: vascular: dp/pt pulses palpable, CFT <3 secs x 10, tg warm to warm, no edema or ecchymosis noted ortho: pain on palpation to the right lateral heel wound neuro: protective sensation slightly diminished derm: right lateral heel wound, stable, no drainage, no probe to bone, minimal carlyle wound erythema, no signs of infection noted - Neurological Exam Neurological exam: Alert, Oriented x3 - Psychiatric Exam Psychiatric exam: Normal Affect, Normal Mood Results - Vital Signs Recent Vital Signs: Last Vital Signs Temp 97.5 F L 02/19/19 07:26 Pulse 71 02/19/19 08:32 Resp 19 02/19/19 07:26 BP 146/79 02/19/19 08:32 Pulse Ox 97 02/19/19 07:26 - Labs Result Diagrams: 02/19/19 08:40 02/19/19 08:40 Labs: Laboratory Results - last 24 hr 02/18/19 02/18/19 02/19/19 16:04 21:05 05:46 WBC RBC Hgb Hct MCV MCH MCHC RDW Plt Count Sodium Potassium Chloride Carbon Dioxide Anion Gap BUN Creatinine Est GFR ( Amer) Est GFR (Non-Af Amer) POC Glucose (mg/dL) 211 H 181 H 212 H Random Glucose Calcium 02/19/19 02/19/19 02/19/19 08:40 08:40 10:59 WBC 10.8 RBC 4.53 Hgb 13.9 Hct 40.1 MCV 88.5 MCH 30.8 MCHC 34.8 RDW 12.5 Plt Count 153 Sodium 134 Potassium 3.8 Chloride 97 L Carbon Dioxide 27 Anion Gap 14 BUN 15 Creatinine 0.6 L Est GFR ( Amer) > 60 Est GFR (Non-Af Amer) > 60 POC Glucose (mg/dL) 265 H Random Glucose 240 H Calcium 8.9 Assessment & Plan - Assessment and Plan (Free Text) Assessment: 58 y/o male patient with right lateral heel wound due to pressure Plan: Patient seen and evaluated Plan discussed with Dr. Adam LE- WBC 10.3, afebrile Ordered bactroban for wound, applied foam dressing Keep wound off-loaded, patient to wear Multipodus boots at all times Podiatry will continue to follow patient while in house Thank you for the consult - Date & Time Date: 02/19/19 Time: 17:24
--- NOTE | 2019-02-19 16:08 | CP.PCM.PN ---
Subjective - Date & Time of Evaluation Date of Evaluation: 02/19/19 Time of Evaluation: 16:04 - Subjective Subjective: patient seen in the room doing well denies sob/cp eating sugar free candies but very high in fat and we discussed this is not a healthy choice to eat so many Objective - Vital Signs/Intake and Output Vital Signs (last 24 hours): Temp Pulse Resp BP Pulse Ox 97.5 F L 71 19 146/79 97 02/19/19 07:26 02/19/19 08:32 02/19/19 07:26 02/19/19 08:32 02/19/19 07:26 - Medications Medications: Current Medications Al Hydrox/Mg Hydrox/Simethicone (Maalox Plus 30 Ml) 30 ml PO Q6 PRN PRN Reason: GI distress Amlodipine Besylate (Norvasc) 10 mg PO DAILY [facility] Last Admin: 02/19/19 08:32 Dose: 10 mg Aspirin (Ecotrin) 81 mg PO DAILY [facility] Last Admin: 02/19/19 08:31 Dose: 81 mg Atorvastatin Calcium (Lipitor) 40 mg PO DAILY [facility] Last Admin: 02/19/19 08:31 Dose: 40 mg Clopidogrel Bisulfate (Plavix) 75 mg PO DAILY [facility] Last Admin: 02/19/19 08:32 Dose: 75 mg Enoxaparin Sodium (Lovenox) 40 mg SC DAILY [facility]; Protocol Last Admin: 02/19/19 08:33 Dose: 40 mg Insulin Human Lispro (Humalog) 0 units SC [facility]; Protocol Last Admin: 02/19/19 12:02 Dose: 4 unit Lactulose (Enulose) 20 gm PO Q12 PRN PRN Reason: Diarrhea Metformin HCl (Glucophage) 1,000 mg PO BIDWM [facility] Last Admin: 02/19/19 08:31 Dose: 1,000 mg Metoprolol Tartrate (Lopressor) 100 mg PO Q12 [facility] Last Admin: 02/19/19 08:31 Dose: 100 mg Silver Sulfadiazine (Silvadene 1% 20 Gm) 1 ea EXT DAILY [facility] Last Admin: 02/19/19 08:32 Dose: 1 applic Zinc Acetate/Diphenhydramine (Benadryl 1% Zinc Acetate -0.1%) 1 applic TOP Q8 [facility] Last Admin: 02/19/19 13:31 Dose: 1 applic - Labs Labs: 02/19/19 08:40 02/19/19 08:40 - Constitutional Appears: Non-toxic, No Acute Distress - Head Exam Head Exam: ATRAUMATIC, NORMAL INSPECTION, NORMOCEPHALIC - Eye Exam Eye Exam: EOMI - ENT Exam ENT Exam: Mucous Membranes Moist - Respiratory Exam Respiratory Exam: NORMAL BREATHING PATTERN - Cardiovascular Exam Cardiovascular Exam: REGULAR RHYTHM - GI/Abdominal Exam GI & Abdominal Exam: absent: Distended, Guarding - Extremities Exam Extremities Exam: absent: Calf Tenderness - Neurological Exam Neuro motor strength exam: Left Upper Extremity: 5, Right Upper Extremity: 3, Left Lower Extremity: 5, Right Lower Extremity: 4 - Psychiatric Exam Psychiatric exam: Normal Affect, Normal Mood - Skin Skin Exam: Warm Assessment and Plan - Assessment and Plan (Free Text) Assessment: PT/OT to continue to help increase functional independence Team conference for d/c planning Pain: controlled Vascular: no evidence of DVT GI: No evidence of constipation or diarrhea Patient continues to be an excellent acute rehabilitation candidate and will have continued focused speech, PT, OT and recreational therapy to help facilitate a safe and appropriate d/c plan
[2019-02-20] MEDS: Diphenhydramine 1% CREAM TOP SCH ×3 (06:04→21:20)
[2019-02-20] MEDS: Insulin Lispro (humaLOG) 100 Units/ml Inj SC SCH ×4 (07:56→21:19)
[2019-02-20] MEDS: Enoxaparin 40 mg Syringe SC SCH (08:52)
[2019-02-20] MEDS: Silver Sulfadiazine 1% Cream (20 gm) EXT SCH (08:58)
--- NOTE | 2019-02-20 10:46 | CP.PCM.PN ---
Subjective - Date & Time of Evaluation Date of Evaluation: 02/20/19 Time of Evaluation: 10:40 - Subjective Subjective: Podiatry progress note - Dr. Valdez 58M seen and evaluated at bedside this AM for right heel pressure ulceration. Resting comfortably. Denies pain to the site. Denies any acute overnight events and has no other complaints. Denies n/v/f/c/sob. Objective - Vital Signs/Intake and Output Vital Signs (last 24 hours): Temp Pulse Resp BP Pulse Ox 97.7 F 73 21 150/89 96 02/20/19 08:05 02/20/19 08:57 02/20/19 08:05 02/20/19 08:57 02/20/19 08:05 - Medications Medications: Current Medications Al Hydrox/Mg Hydrox/Simethicone (Maalox Plus 30 Ml) 30 ml PO Q6 PRN PRN Reason: GI distress Amlodipine Besylate (Norvasc) 10 mg PO DAILY [facility] Last Admin: 02/20/19 08:57 Dose: 10 mg Aspirin (Ecotrin) 81 mg PO DAILY [facility] Last Admin: 02/20/19 08:53 Dose: 81 mg Atorvastatin Calcium (Lipitor) 40 mg PO DAILY [facility] Last Admin: 02/20/19 08:53 Dose: 40 mg Clopidogrel Bisulfate (Plavix) 75 mg PO DAILY [facility] Last Admin: 02/20/19 08:53 Dose: 75 mg Enoxaparin Sodium (Lovenox) 40 mg SC DAILY [facility]; Protocol Last Admin: 02/20/19 08:52 Dose: 40 mg Insulin Human Lispro (Humalog) 0 units SC ACHS [facility]; Protocol Last Admin: 02/20/19 07:56 Dose: 3 unit Lactulose (Enulose) 20 gm PO Q12 PRN PRN Reason: Diarrhea Metformin HCl (Glucophage) 1,000 mg PO BIDWM [facility] Last Admin: 02/20/19 08:52 Dose: 1,000 mg Metoprolol Tartrate (Lopressor) 100 mg PO Q12 [facility] Last Admin: 02/20/19 08:54 Dose: 100 mg Silver Sulfadiazine (Silvadene 1% 20 Gm) 1 ea EXT DAILY [facility] Last Admin: 02/20/19 08:58 Dose: 1 applic Zinc Acetate/Diphenhydramine (Benadryl 1% Zinc Acetate -0.1%) 1 applic TOP Q8 [facility] Last Admin: 02/20/19 06:04 Dose: 1 applic - Labs Labs: 02/19/19 08:40 02/19/19 08:40 - Constitutional Appears: Non-toxic - Head Exam Head Exam: ATRAUMATIC - Extremities Exam Additional comments: Bilateral lower extremity exam: vascular: dp/pt pulses palpable, CFT <3 secs x 10, tg warm to warm, no edema or ecchymosis noted ortho: pain on palpation to the right lateral heel wound neuro: protective sensation slightly diminished derm: right lateral heel wound, stable, no drainage, no probe to bone, minimal carlyle wound erythema, no signs of infection noted - Neurological Exam Neurological Exam: Alert, Awake, Oriented x3 - Psychiatric Exam Psychiatric exam: Normal Affect Assessment and Plan - Assessment and Plan (Free Text) Assessment: 58M with right lateral heel wound due to pressure Plan: Patient seen and evaluated Plan discussed with Dr. Courtney LE Silvalindsay to wound base, foam dressing Bactroban ordered - instructions: apply bactroban (not silvadene) to wound base and cover with foam dressing Apply every other day, podiatry will see and evaluate 2x per week Keep wound off-loaded, patient does not like multipodus boots, multiple pillows under calf to offload heel Will continue to follow
--- NOTE | 2019-02-20 11:12 | CP.PCM.PN ---
Subjective - Date & Time of Evaluation Date of Evaluation: 02/20/19 Time of Evaluation: 09:00 - Subjective Subjective: no acute complaints of pain , friendly Objective - Vital Signs/Intake and Output Vital Signs (last 24 hours): Temp Pulse Resp BP Pulse Ox 97.7 F 73 21 150/89 96 02/20/19 08:05 02/20/19 08:57 02/20/19 08:05 02/20/19 08:57 02/20/19 08:05 - Medications Medications: Current Medications Al Hydrox/Mg Hydrox/Simethicone (Maalox Plus 30 Ml) 30 ml PO Q6 PRN PRN Reason: GI distress Amlodipine Besylate (Norvasc) 10 mg PO DAILY [facility] Last Admin: 02/20/19 08:57 Dose: 10 mg Aspirin (Ecotrin) 81 mg PO DAILY [facility] Last Admin: 02/20/19 08:53 Dose: 81 mg Atorvastatin Calcium (Lipitor) 40 mg PO DAILY [facility] Last Admin: 02/20/19 08:53 Dose: 40 mg Clopidogrel Bisulfate (Plavix) 75 mg PO DAILY [facility] Last Admin: 02/20/19 08:53 Dose: 75 mg Enoxaparin Sodium (Lovenox) 40 mg SC DAILY [facility]; Protocol Last Admin: 02/20/19 08:52 Dose: 40 mg Insulin Human Lispro (Humalog) 0 units SC [facility]; Protocol Last Admin: 02/20/19 07:56 Dose: 3 unit Lactulose (Enulose) 20 gm PO Q12 PRN PRN Reason: Diarrhea Metformin HCl (Glucophage) 1,000 mg PO BIDWM [facility] Last Admin: 02/20/19 08:52 Dose: 1,000 mg Metoprolol Tartrate (Lopressor) 100 mg PO Q12 [facility] Last Admin: 02/20/19 08:54 Dose: 100 mg Silver Sulfadiazine (Silvadene 1% 20 Gm) 1 ea EXT DAILY [facility] Last Admin: 02/20/19 08:58 Dose: 1 applic Zinc Acetate/Diphenhydramine (Benadryl 1% Zinc Acetate -0.1%) 1 applic TOP Q8 [facility] Last Admin: 02/20/19 06:04 Dose: 1 applic - Labs Labs: 02/19/19 08:40 02/19/19 08:40 - Constitutional Appears: Well - Head Exam Head Exam: ATRAUMATIC, NORMAL INSPECTION - Eye Exam Eye Exam: EOMI, Normal appearance Pupil Exam: NORMAL ACCOMODATION, PERRL - ENT Exam ENT Exam: Mucous Membranes Moist, Normal Exam - Neck Exam Neck Exam: Full ROM - Respiratory Exam Respiratory Exam: Clear to Ausculation Bilateral, NORMAL BREATHING PATTERN - Cardiovascular Exam Cardiovascular Exam: REGULAR RHYTHM - GI/Abdominal Exam GI & Abdominal Exam: Soft, Normal Bowel Sounds - Rectal Exam Rectal Exam: NORMAL INSPECTION - Exam External exam: NORMAL EXTERNAL EXAM - Extremities Exam Extremities Exam: Full ROM, Normal Capillary Refill, Normal Inspection - Back Exam Back Exam: NORMAL INSPECTION - Neurological Exam Neurological Exam: Alert Neuro motor strength exam: Right Upper Extremity: 2/1, Right Lower Extremity: 3 - Psychiatric Exam Psychiatric exam: Normal Affect, Normal Mood - Skin Skin Exam: Normal Color Assessment and Plan (1) Acute CVA (cerebrovascular accident) Assessment & Plan: covering for Dr Brown, to continue with physical, occupational, rec and speech therapy Status: Acute (2) Diabetes mellitus with hyperglycemia Status: Acute (3) Right hemiparesis Status: Acute (4) Essential (primary) hypertension Status: Chronic
[2019-02-21] MEDS: Diphenhydramine 1% CREAM TOP SCH ×3 (06:38→21:37)
[2019-02-21] MEDS: Insulin Lispro (humaLOG) 100 Units/ml Inj SC SCH ×4 (06:38→21:37)
[2019-02-21] MEDS: Silver Sulfadiazine 1% Cream (20 gm) EXT SCH (09:05)
[2019-02-21] MEDS: Enoxaparin 40 mg Syringe SC SCH (09:09)
[2019-02-22] MEDS: Diphenhydramine 1% CREAM TOP SCH ×3 (05:51→21:47)
[2019-02-22 07:01] LABS: HEMOGLOBIN 13.4 g/dL (12.0-18.0); MEAN CELL VOLUME 87.5 fl (80.0-94.0); MEAN CORPUSCULAR HGB CONC 34.3 g/dL (33.0-37.0); RBC 4.48 Mil/uL (4.40-5.90); RED CELL DISTRIBUTION WIDTH 12.8 % (11.5-14.5); WHITE BLOOD COUNT 11.6 K/uL (4.8-10.8)
[2019-02-22 07:24] LABS: BLOOD UREA NITROGEN 18 mg/dl (9-20); CALCIUM 9.4 mg/dL (8.4-10.2); GFR NON-AFRICAN AMERICAN > 60
[2019-02-22] MEDS: Insulin Lispro (humaLOG) 100 Units/ml Inj SC SCH ×4 (07:37→21:48)
[2019-02-22] MEDS: Enoxaparin 40 mg Syringe SC SCH (08:15)
[2019-02-22] MEDS ORDERED: Mupirocin 2% Oint 1GM UD TOP SCH (09:00)
[2019-02-22] MEDS ORDERED: Bacitracin OINT 15GM TOP SCH (09:00)
--- NOTE | 2019-02-22 17:40 | CP.PCM.PN ---
Subjective - Date & Time of Evaluation Date of Evaluation: 02/22/19 Time of Evaluation: 17:39 - Subjective Subjective: Patient seen in the room doing well much more spontaneous hand gestures with speaking denies pain had a good day in therapy team conf. tomorrow. Objective - Vital Signs/Intake and Output Vital Signs (last 24 hours): Temp Pulse Resp BP Pulse Ox 97.3 F L 73 20 133/88 100 02/22/19 07:29 02/22/19 08:15 02/22/19 07:29 02/22/19 08:15 02/22/19 07:29 - Medications Medications: Current Medications Al Hydrox/Mg Hydrox/Simethicone (Maalox Plus 30 Ml) 30 ml PO Q6 PRN PRN Reason: GI distress Amlodipine Besylate (Norvasc) 10 mg PO DAILY [facility] Last Admin: 02/22/19 08:15 Dose: 10 mg Aspirin (Ecotrin) 81 mg PO DAILY [facility] Last Admin: 02/22/19 08:13 Dose: 81 mg Atorvastatin Calcium (Lipitor) 40 mg PO DAILY [facility] Last Admin: 02/22/19 08:14 Dose: 40 mg Clopidogrel Bisulfate (Plavix) 75 mg PO DAILY [facility] Last Admin: 02/22/19 08:15 Dose: 75 mg Enoxaparin Sodium (Lovenox) 40 mg SC DAILY [facility]; Protocol Last Admin: 02/22/19 08:15 Dose: 40 mg Insulin Human Lispro (Humalog) 0 units SC ACHS [facility]; Protocol Last Admin: 02/22/19 16:05 Dose: 3 unit Lactulose (Enulose) 20 gm PO Q12 PRN PRN Reason: Diarrhea Metformin HCl (Glucophage) 1,000 mg PO BIDWM [facility] Last Admin: 02/22/19 16:04 Dose: 1,000 mg Metoprolol Tartrate (Lopressor) 100 mg PO Q12 [facility] Last Admin: 02/22/19 08:14 Dose: 100 mg Mupirocin (Bactroban Ointment) 1 applic TOP QOTHERDAY [facility] Last Admin: 02/22/19 12:08 Dose: 1 applic Zinc Acetate/Diphenhydramine (Benadryl 1% Zinc Acetate -0.1%) 1 applic TOP Q8 [facility] Last Admin: 02/22/19 15:00 Dose: 1 applic - Labs Labs: 02/22/19 05:45 02/22/19 05:45
[2019-02-23] MEDS ORDERED: Bismuth Subsalicylate 262 mg Chew Tab PO PRN (06:21)
[2019-02-23] MEDS: Diphenhydramine 1% CREAM TOP SCH ×3 (06:53→21:23)
[2019-02-23] MEDS: Insulin Lispro (humaLOG) 100 Units/ml Inj SC SCH ×4 (08:22→21:23)
[2019-02-23] MEDS: Enoxaparin 40 mg Syringe SC SCH (09:49)
--- NOTE | 2019-02-23 13:24 | PCM.PSYTMC ---
Acute Rehab Team Conference - - Vital Signs: Vital Signs (Last 8 Hours): Vital Signs 02/23/19 02/23/19 02/23/19 08:17 09:49 09:50 Temperature 98.0 F Pulse Rate 79 79 79 Respiratory 19 Rate Blood Pressure 132/75 132/75 132/75 O2 Sat by Pulse 97 Oximetry 02/23/19 10:53 Temperature 98 F Pulse Rate 79 Respiratory 19 Rate Blood Pressure 132/75 O2 Sat by Pulse Oximetry Pain: 0 - Precautions: Precautions: Fall Prevention, Pressure Ulcer - Medications/Other Issues: Comment: Refusing SCD and Z Boots at nite despite encouragement and education. Agreeable to elevate rt leg while in bed. Agreeable to AE Hose during the day - Consults: Comment: Dr. Goodwin for toe nail clipping. Dr. Valdez to eval right heel open sore treatment. - Skin: Incision Site: N/A Incision Line Treatment: N/A - Toileting: Toileting: Maximal Assistance - Bladder Management: Bladder Pattern: Normal Voiding Method: Urinal Bladder Management: Minimal Assistance Other Intervention:: Continent of bowel/bladder. Uses commode/urinal with min assist - Transfers: Transfers: Minimal Assistance - ADL's: ADL's: Minimal Assistance - Pain Management: Other Intervention:: NONE - Patient/Family Teaching: Other Intervention:: Safe transfers. Wound care. S/S of CVA. Medication - Goals/Time Frame: Comment: Next Team Conference - Provider: Registered Nurse:: Bernice Valle Physical Therapy - Bed Mobility Bed Mobility: Supervision, Verbal Cues, Contact Guard - Transfers Wheelchair to Mat: Verbal Cues, Contact Guard, Minimal Assistance, Moderate Assistance Sit to Stand: Supervision, Verbal Cues, Contact Guard Comment: -CG/min A towards the left. -min/mod A towards the right - Ambulation Level of Assistance: Moderate Assistance, Maximum Assistance Distance (ft.): 75 Orthoses: n/a Comment: -75 feet x 6 trials with B hand held assistance. -3rd person present for completion of WC follow for safety due to impaired balance. -patient continues to present with impaired trunk control, impaired placement of RLE and impaired base of support. -patient lacks weight shifting towards left side with reduced shifting off of weight towards left side leaning to rapid and quick RLE step with impaired pattern with reduced time in swing phase and adducted gait pattern. -patient presents with increased extensor tone and increased extension during gait of the trunk as well as the RLE; patient demonstrates genu recurvatum at the RLE during stance phase with rightwards leaning. -patient requires moderate to maximal assistance for trunk control and weight shifting; patient has impaired balance reactions and can require up to total A for safety with upright control during stance phase. -patient requires cues to reduced thinking during gait but also to focus on a few de la torre points that he can connect relevance to during gait - Stair Negotiation Stairs: Level of Assistance: Moderate Assistance Number of Stairs: 4 Comment: step to pattern with cueing for sequencing - Standing Balance Static Stand: Moderate Assistance Comment: supported - Pain Pain (assessed during therapy session): 0 Comment: -patient denies pain over weekend and during teatment today. -has had RLE soreness during weight acceptance limiting gait but reports it has soreness and does not agree that it is pain - Insight/Carryover Insight/Carryover: Fair - Patient/Family Education Comment: safety, therapy schedule, therapy goals, mobility, CVA recovery, use of call covarrubias for safety, use of self-releasing seatbelt, POC, discharge plan, mental practice encouraged - Assessment/Plan Assessment: Mr. Whyte continues to present with impaired RLE motor control, impaired RLE coordination and extensor tone. Patient relies on compensatory strategies during gait and mobility and PT working to reduce use of compensation in order to facilitate recovery patterns at this time s/p acute CVA. Patient continues to require assistance of 3 for safe gait patterns including B NUTRITION INTERN as well as WC follow for safety due to unpredictable loses of balance. PT recommends continued skilled therapy services with maximization of safety and reduction of external assistance s/p CVA. Continue to recommend discharge to [facility] as patient will continue to benefit from skilled therapy services addressing rehabilitation goals prior to community discharge. - Goals Timeframe: 7 days Goals: -rolling in bed with modified independence. -supine to/from sit with modified independence. -stand pivot transfers without device with min A/CG. - sit to/from stand transfers with appropriate single sided device with min A/CG. -ambulate 150 feet with L axillary crutch with moderate assistance. -negotiate 4 training steps with single rail with mod A - Provider Physical Therapist:: Aubree Ivy License Number:: [id number] Occupational Therapy - Arousal/Attention/Orientation Level of Consciousness: Awake, Alert Patient Orientation: Person, Place, Time, Appropriate to Age, Appropriate to Situation Assessment Comment: -impaired RUE/RLE motor control--gross/fine motor function, +dysmetria, incoordination. -impaired sensation in RUE/RLE. -impaired safety awareness. -impaired stereognosis - ADL/IADL Self Feeding: Independent, Set-up Help Grooming: Independent, Set-up Help Bathing-Upper Ext: Verbal Cues, Set-up Help, Minimal Assistance Bathing-Lower Ext: Verbal Cues, Set-up Help, Moderate Assistance Dressing-Upper Ext: Supervision, Verbal Cues, Set-up Help Dressing-Lower Ext: Verbal Cues, Set-up Help, Minimal Assistance Comment: completes dressing with hemmi-techniques with verbal cuse to integrate - Sitting Balance Static Sitting: Independent without upper extremity support Dynamic Sitting: Reaches across midline, Reaches out of base of support, Reaches within base of support, Requires supervision Comment: seated unsupported - Transfers Wheelchair to Bed Transfers: Verbal Cues, Contact Guard, Minimal Assistance Toilet Transfers: Verbal Cues, Contact Guard, Minimal Assistance Comment: shower bench transfers: min assist and verbal/tactile cuse for hand placement, weightshifting, increasingBOS - Wheelchair Management Level of Assistance: Supervision Distance (ft.): 75 - Upper Extremity Status Right Upper Extremity Comment: *PROM : is WNLS. *AROM is WFLS, strength 4-/5. +dysmetria, incoordination, impaired sensation(stereognosis, kinesthesia/proprioception, light/dull touch) Left Upper Extremity Comment: A/PROM: WNLS - Pain Pain (assessed during therapy session): 0 - Insight/Carryover Insight/Carryover: Good - Patient/Family Education Comment: -ongoing for adls, transfers and mobility training using adaptive/compensatory strategies, veronique-techniques prn. -compensatory strategies such as using vision to compensate for decrease sensation in RUE/RLE for increase safety. -HEP for RUE management/ROM exercises, gross/fine motor function. -w/c management/propulsion, safety awareness. -energy conservation/work simplication strategies. -RUE positioning Laptray, bed positioning. -RUE hand over hand to normalize speed, force, proper placement. -increasing CHUCKY, weightshifting dduring transfers - Assessment/Plan Assessment: Pt is a 58 year old R hand dominant male with dx: acute CVA with R hemiparesis. Precautions: falls(self release seatbelt with alarm), cardiac, R laptray, DM. Pt continues to demonstrate staedy progress in functional performance of self care, transfers and mobility, RUE gross/fine motor function and oevrall safety awareness. Pt will continue to benefit from skilled Occupational Therapy to address above impairments to maximize function in self care, transfers and mobility using adaptive/compensatory strategies, bed and w/c positioning, update HEP. Pt WILL likely need [facility] 2' extent of sensorimotor deficits, coodination/balance deficits; current progress & functional status a ffected by these deficits. Pt also lives alone and will require 24 hour care/assistance if discharge home. Pt motivated to engage in all therapy activities, but needs reminders to take rest breaks and pace self. *Goal: intermittent Supervision/ Min assistance for self care, transfers and mobility using adaptive/compensatory strategies, assistiev device prn. - Goals Timeframe: 8 days Comment: *UPPER BODY DRESSING: I/setup seated. *LOWER BODY DRESSING: CG assist and verbal cues with assistive devices prn. *BATHING: Close S/CG assist and verbal cues seated, standing intermittently in front of shower bench/chair. *TRANSFERS: CS/CG assist and verbal cues <->bed, commode, chair and shower bench, other surfaces. *RUE FUNCTION: Increase strength to 4/5 throughout incraese coordination to functional limits for bimanual tasks--fastening buttons, oepning containers, using RUE as gross assist with Supervision. *TOILETING: min assist and verbal cues. *W/C MANAGEMENT/PROPULSION: 150 feet with Mod I, manage B brakes with Mod I - Provider Occupational Therapist:: Kinga Jaime License Number: [id number] Speech Therapy - Consult Information Patient on Program: Yes Medical Diagnosis: CVA Treatment Diagnosis: min-mild cognitive deficits - Assessment Memory Impairment: Mild - Plan Assessment: Keven Whyte currently presents with min-mild cognitive deficits characterized by impaired short-term recall and higher level problem solving/reasoning tasks. He has demonstrated significant improvement overall in insight, attention, and linguistic organization. Pt with good participation in tx tasks and would benefit from continued short-term ST for improved short-term recall and functional independence. Plan: Continue Speech/Language Therapy Frequency: 3-5 times per week Duration: 1 week Goals/Timeframe: Please see progress note dated 02/22/19 for updated goals/POC Recommendations: Continue ST for improved memory and functional independence - Provider Therapist: Yulia Herman License Number: [id number] Recreational Therapy - Participation Participation: Participates in Individual and/or Group Sessions - Attendance Attendance: 3-5 times per week - Activities Leisure Activities: Cards and Games - Socialization Level of Socialization: Initiates/interacts freely with care givers and peer - Diversional Time Diversional Time: listening to music, socializing - Assessment Assessment/Plan: Pt is agreeable to participate in 1:1 recreation therapy sessions offered throughout stay on unit. Pt is oriented to leisure tasks specifically related to fine motor control, problem solving, and carrying over stratgies and directions of tasks. Pt requires supervision-min A throughout all leisure tasks for carryover of directions. Pt requires leisure education during each session for pt to understand benefits and purpose of each leisure task presented. Pt had family bring him his drumsticks to improve fine motor movements and control with R hand. Pt will continue to benefit from participating in recreation therapy sessions throughout stay on unit. Problems Currently Limiting Participation: R UE and LE weakness, decrease leisure awareness level Goals and Time Frame: Pt will tolerate 30 minutes of recreation therapy session with min A by date of discharge. - Provider Therapist: Maria T Chavez Nutrition - Current Diet Current Diet/Supplement/Feedings: low consistent CHO heart healthy thin liquids - Appetite Percent Meal Consumed: 75-100% - Assessment/Goals/Time Frame Assessments/Goals/Time Frame: Pt at high nutritional risk. goals: 1. Pt to consume 75-100% of meals( met,continue). 2. Blood glucoses to be between 70- 180 mg/dl(HgbA1C to trend downward over next few months)(partially met, continue). Follow-up due on 02/27/2019 - Provider Provider: Yocasta Collins Case Management - Psychosocial Assessment Support Systems: Ra Whyte (brother) - [phone] Psychological Interventions/Needs: Patient is AAOx3 and able to verbalize needs. Discharge Concerns: Patient lives alone and has minimal support in the area. Patient is still requiring mod/max assist with ambulation and gait. Patient/Family Meeting: CM met with patient and rehab team Intervention/Goal/Outcome: 1. Goal: 24hr supervision/care 2. Plan: [facility] or [facility] (based on private room availability) 3. make official referral to [facility] after discussing with Dr. Rosenberg the availability for private room preference in either facility 4. prepare patient for transfer 5. [facility] auth 6. continued emotional support - Discharge Plan Discharge Plan: Subacute care - Provider Provider: Loreto Stacy License Number: [id number] Rehabilitation Plan - Treatment Plan Treatment Plan: Physical Therapy, Occupational Therapy, Speech, Dietary - Recommendation Recommendation: Physical Therapy, Occupational Therapy - Discharge Plan Estimated Date of Discharge: 02/26/19 Discharge to: Subacute
--- NOTE | 2019-02-23 16:48 | CP.PCM.PN ---
Subjective - Date & Time of Evaluation Date of Evaluation: 02/23/19 Time of Evaluation: 16:47 - Subjective Subjective: patient seen in the room denies sob/cp discussed discharge plans in detail He understands need for [facility] still unfortunately with significant gait, apraxia issues. Objective - Vital Signs/Intake and Output Vital Signs (last 24 hours): Temp Pulse Resp BP Pulse Ox 98 F 79 19 132/75 97 02/23/19 10:53 02/23/19 10:53 02/23/19 10:53 02/23/19 10:53 02/23/19 08:17 - Medications Medications: Current Medications Al Hydrox/Mg Hydrox/Simethicone (Maalox Plus 30 Ml) 30 ml PO Q6 PRN PRN Reason: GI distress Amlodipine Besylate (Norvasc) 10 mg PO DAILY [facility] Last Admin: 02/23/19 09:50 Dose: 10 mg Aspirin (Ecotrin) 81 mg PO DAILY [facility] Last Admin: 02/23/19 09:48 Dose: 81 mg Atorvastatin Calcium (Lipitor) 40 mg PO DAILY [facility] Last Admin: 02/23/19 09:48 Dose: 40 mg Bismuth Subsalicylate (Pepto Bismol) 262 mg PO Q1 PRN PRN Reason: Indigestion / Heartburn Last Admin: 02/23/19 06:52 Dose: 262 mg Clopidogrel Bisulfate (Plavix) 75 mg PO DAILY [facility] Last Admin: 02/23/19 09:51 Dose: 75 mg Enoxaparin Sodium (Lovenox) 40 mg SC DAILY [facility]; Protocol Last Admin: 02/23/19 09:49 Dose: 40 mg Insulin Human Lispro (Humalog) 0 units SC [facility]; Protocol Last Admin: 02/23/19 12:01 Dose: 3 unit Lactulose (Enulose) 20 gm PO Q12 PRN PRN Reason: Diarrhea Metformin HCl (Glucophage) 1,000 mg PO BIDWM [facility] Last Admin: 02/23/19 09:48 Dose: 1,000 mg Metoprolol Tartrate (Lopressor) 100 mg PO Q12 [facility] Last Admin: 02/23/19 09:49 Dose: 100 mg Mupirocin (Bactroban Ointment) 1 applic TOP QOTHERDAY [facility] Last Admin: 02/22/19 12:08 Dose: 1 applic Zinc Acetate/Diphenhydramine (Benadryl 1% Zinc Acetate -0.1%) 1 applic TOP Q8 [facility] Last Admin: 02/23/19 15:10 Dose: 1 applic - Labs Labs: 02/22/19 05:45 02/22/19 05:45
--- NOTE | 2019-02-23 16:52 | CP.PCM.PN ---
Subjective - Date & Time of Evaluation Date of Evaluation: 02/23/19 Time of Evaluation: 16:51 - Subjective Subjective: Podiatry progress note - Dr. Valdez 58M seen and evaluated at bedside for right heel pressure ulceration. Resting comfortably. Denies pain to the site. Denies any acute overnight events and has no other complaints. Denies n/v/f/c/sob. Objective - Vital Signs/Intake and Output Vital Signs (last 24 hours): Temp Pulse Resp BP Pulse Ox 98 F 79 19 132/75 97 02/23/19 10:53 02/23/19 10:53 02/23/19 10:53 02/23/19 10:53 02/23/19 08:17 - Medications Medications: Current Medications Al Hydrox/Mg Hydrox/Simethicone (Maalox Plus 30 Ml) 30 ml PO Q6 PRN PRN Reason: GI distress Amlodipine Besylate (Norvasc) 10 mg PO DAILY [facility] Last Admin: 02/23/19 09:50 Dose: 10 mg Aspirin (Ecotrin) 81 mg PO DAILY [facility] Last Admin: 02/23/19 09:48 Dose: 81 mg Atorvastatin Calcium (Lipitor) 40 mg PO DAILY [facility] Last Admin: 02/23/19 09:48 Dose: 40 mg Bismuth Subsalicylate (Pepto Bismol) 262 mg PO Q1 PRN PRN Reason: Indigestion / Heartburn Last Admin: 02/23/19 06:52 Dose: 262 mg Clopidogrel Bisulfate (Plavix) 75 mg PO DAILY [facility] Last Admin: 02/23/19 09:51 Dose: 75 mg Enoxaparin Sodium (Lovenox) 40 mg SC DAILY [facility]; Protocol Last Admin: 02/23/19 09:49 Dose: 40 mg Insulin Human Lispro (Humalog) 0 units SC [facility]; Protocol Last Admin: 02/23/19 12:01 Dose: 3 unit Lactulose (Enulose) 20 gm PO Q12 PRN PRN Reason: Diarrhea Metformin HCl (Glucophage) 1,000 mg PO BIDWM [facility] Last Admin: 02/23/19 09:48 Dose: 1,000 mg Metoprolol Tartrate (Lopressor) 100 mg PO Q12 [facility] Last Admin: 02/23/19 09:49 Dose: 100 mg Mupirocin (Bactroban Ointment) 1 applic TOP QOTHERDAY [facility] Last Admin: 02/22/19 12:08 Dose: 1 applic Zinc Acetate/Diphenhydramine (Benadryl 1% Zinc Acetate -0.1%) 1 applic TOP Q8 [facility] Last Admin: 02/23/19 15:10 Dose: 1 applic - Labs Labs: 02/22/19 05:45 02/22/19 05:45 - Constitutional Appears: Well, Non-toxic, No Acute Distress - Head Exam Head Exam: ATRAUMATIC, NORMOCEPHALIC - Extremities Exam Additional comments: Bilateral lower extremity exam: vascular: dp/pt pulses palpable, CFT <3 secs x 10, tg warm to warm, no edema or ecchymosis noted ortho: pain on palpation to the right lateral heel wound neuro: protective sensation slightly diminished derm: right lateral heel wound, stable, no drainage, no probe to bone, minimal carlyle wound erythema, no signs of infection noted - Neurological Exam Neurological Exam: Alert, Awake, Oriented x3 - Psychiatric Exam Psychiatric exam: Normal Affect, Normal Mood Assessment and Plan - Assessment and Plan (Free Text) Assessment: 58M with right lateral heel wound due to pressure Plan: Patient seen and evaluated Plan discussed with Dr. Courtney LE Bactroban ordered - instructions: apply bactroban (not silvadene) to wound base and cover with foam dressing Apply every other day, podiatry will see and evaluate 2x per week Keep wound off-loaded, patient does not like multipodus boots, multiple pillows under calf to offload heel Will continue to follow
[2019-02-24] MEDS: Diphenhydramine 1% CREAM TOP SCH ×3 (06:40→21:10)
[2019-02-24] MEDS: Insulin Lispro (humaLOG) 100 Units/ml Inj SC SCH ×4 (07:15→21:10)
[2019-02-24] MEDS: Enoxaparin 40 mg Syringe SC SCH (08:34)
[2019-02-25] MEDS: Diphenhydramine 1% CREAM TOP SCH ×2 (06:14→16:30)
[2019-02-25] MEDS: Insulin Lispro (humaLOG) 100 Units/ml Inj SC SCH ×4 (06:57→21:09)
[2019-02-25 08:08] LABS: HEMOGLOBIN 13.4 g/dL (12.0-18.0); MEAN CORPUSCULAR HEMOGLOBIN 30.9 pg (27.0-31.0); MEAN CORPUSCULAR HGB CONC 35.1 g/dL (33.0-37.0); RBC 4.34 Mil/uL (4.40-5.90); WHITE BLOOD COUNT 8.1 K/uL (4.8-10.8)
[2019-02-25 08:25] LABS: BLOOD UREA NITROGEN 20 mg/dl (9-20); GFR NON-AFRICAN AMERICAN > 60
[2019-02-25] MEDS: Enoxaparin 40 mg Syringe SC SCH (08:34)
--- NOTE | 2019-02-25 17:28 | CP.PCM.PN ---
Subjective - Date & Time of Evaluation Date of Evaluation: 02/25/19 Time of Evaluation: 17:28 - Subjective Subjective: Patient seen in the room looking forward to the next step in care nervous and anxious but feels confident Objective - Vital Signs/Intake and Output Vital Signs (last 24 hours): Temp Pulse Resp BP Pulse Ox 98.1 F 88 21 111/82 98 02/25/19 08:17 02/25/19 08:37 02/25/19 08:17 02/25/19 08:37 02/25/19 08:17 - Medications Medications: Current Medications Al Hydrox/Mg Hydrox/Simethicone (Maalox Plus 30 Ml) 30 ml PO Q6 PRN PRN Reason: GI distress Amlodipine Besylate (Norvasc) 10 mg PO DAILY [facility] Last Admin: 02/25/19 08:37 Dose: 10 mg Aspirin (Ecotrin) 81 mg PO DAILY [facility] Last Admin: 02/25/19 08:31 Dose: 81 mg Atorvastatin Calcium (Lipitor) 40 mg PO DAILY [facility] Last Admin: 02/25/19 08:32 Dose: 40 mg Bismuth Subsalicylate (Pepto Bismol) 262 mg PO Q1 PRN PRN Reason: Indigestion / Heartburn Last Admin: 02/23/19 06:52 Dose: 262 mg Clopidogrel Bisulfate (Plavix) 75 mg PO DAILY [facility] Last Admin: 02/25/19 08:35 Dose: 75 mg Enoxaparin Sodium (Lovenox) 40 mg SC DAILY [facility]; Protocol Last Admin: 02/25/19 08:34 Dose: 40 mg Insulin Human Lispro (Humalog) 0 units SC [facility]; Protocol Last Admin: 02/25/19 16:31 Dose: 2 unit Lactulose (Enulose) 20 gm PO Q12 PRN PRN Reason: Diarrhea Metformin HCl (Glucophage) 1,000 mg PO BIDWM [facility] Last Admin: 02/25/19 16:30 Dose: 1,000 mg Metoprolol Tartrate (Lopressor) 100 mg PO Q12 [facility] Last Admin: 02/25/19 08:33 Dose: 100 mg Mupirocin (Bactroban Ointment) 1 applic TOP QOTHERDAY [facility] Last Admin: 02/24/19 08:40 Dose: Not Given - Labs Labs: 02/25/19 07:45 02/25/19 07:45
[2019-02-26] MEDS: Insulin Lispro (humaLOG) 100 Units/ml Inj SC SCH ×3 (06:55→16:57)
[2019-02-26 08:06] VITALS: BP 147/91; PULSE 85; RESP 21; TEMP 97.2; O2SAT 97
[2019-02-26] MEDS: Enoxaparin 40 mg Syringe SC SCH (08:33)
--- NOTE | 2019-02-27 14:01 | CP.PCM.PN ---
Subjective - Date & Time of Evaluation Date of Evaluation: 02/18/19 Objective - Vital Signs/Intake and Output Vital Signs (last 24 hours): Temp Pulse Resp BP Pulse Ox 97.2 F L 85 21 147/91 H 97 02/26/19 08:06 02/26/19 08:32 02/26/19 08:06 02/26/19 08:32 02/26/19 08:06 - Labs Labs: 02/25/19 07:45 02/25/19 07:45 Assessment and Plan (1) Acute CVA (cerebrovascular accident) Status: Acute (2) Diabetes mellitus with hyperglycemia Status: Acute (3) Right hemiparesis Status: Acute (4) Essential (primary) hypertension Status: Chronic
--- NOTE | 2019-02-27 14:01 | CP.PCM.PN ---
Subjective - Date & Time of Evaluation Date of Evaluation: 02/17/19 Objective - Vital Signs/Intake and Output Vital Signs (last 24 hours): Temp Pulse Resp BP Pulse Ox 97.2 F L 85 21 147/91 H 97 02/26/19 08:06 02/26/19 08:32 02/26/19 08:06 02/26/19 08:32 02/26/19 08:06 - Labs Labs: 02/25/19 07:45 02/25/19 07:45 Assessment and Plan (1) Acute CVA (cerebrovascular accident) Status: Acute (2) Diabetes mellitus with hyperglycemia Status: Acute (3) Right hemiparesis Status: Acute (4) Essential (primary) hypertension Status: Chronic
--- NOTE | 2019-02-27 14:02 | CP.PCM.PN ---
Subjective - Date & Time of Evaluation Date of Evaluation: 02/20/19 Objective - Vital Signs/Intake and Output Vital Signs (last 24 hours): Temp Pulse Resp BP Pulse Ox 97.2 F L 85 21 147/91 H 97 02/26/19 08:06 02/26/19 08:32 02/26/19 08:06 02/26/19 08:32 02/26/19 08:06 - Labs Labs: 02/25/19 07:45 02/25/19 07:45 Assessment and Plan (1) Acute CVA (cerebrovascular accident) Status: Acute (2) Diabetes mellitus with hyperglycemia Status: Acute (3) Right hemiparesis Status: Acute (4) Essential (primary) hypertension Status: Chronic
--- NOTE | 2019-02-27 14:02 | CP.PCM.PN ---
Subjective - Date & Time of Evaluation Date of Evaluation: 02/21/19 Objective - Vital Signs/Intake and Output Vital Signs (last 24 hours): Temp Pulse Resp BP Pulse Ox 97.2 F L 85 21 147/91 H 97 02/26/19 08:06 02/26/19 08:32 02/26/19 08:06 02/26/19 08:32 02/26/19 08:06 - Labs Labs: 02/25/19 07:45 02/25/19 07:45 Assessment and Plan (1) Acute CVA (cerebrovascular accident) Status: Acute (2) Diabetes mellitus with hyperglycemia Status: Acute (3) Right hemiparesis Status: Acute (4) Essential (primary) hypertension Status: Chronic
--- NOTE | 2019-02-27 14:02 | CP.PCM.PN ---
Subjective - Date & Time of Evaluation Date of Evaluation: 02/19/19 Objective - Vital Signs/Intake and Output Vital Signs (last 24 hours): Temp Pulse Resp BP Pulse Ox 97.2 F L 85 21 147/91 H 97 02/26/19 08:06 02/26/19 08:32 02/26/19 08:06 02/26/19 08:32 02/26/19 08:06 - Labs Labs: 02/25/19 07:45 02/25/19 07:45 Assessment and Plan (1) Acute CVA (cerebrovascular accident) Status: Acute (2) Diabetes mellitus with hyperglycemia Status: Acute (3) Right hemiparesis Status: Acute (4) Essential (primary) hypertension Status: Chronic
--- NOTE | 2019-02-27 14:03 | CP.PCM.PN ---
Subjective - Date & Time of Evaluation Date of Evaluation: 02/22/19 Objective - Vital Signs/Intake and Output Vital Signs (last 24 hours): Temp Pulse Resp BP Pulse Ox 97.2 F L 85 21 147/91 H 97 02/26/19 08:06 02/26/19 08:32 02/26/19 08:06 02/26/19 08:32 02/26/19 08:06 - Labs Labs: 02/25/19 07:45 02/25/19 07:45 Assessment and Plan (1) Acute CVA (cerebrovascular accident) Status: Acute (2) Diabetes mellitus with hyperglycemia Status: Acute (3) Right hemiparesis Status: Acute (4) Essential (primary) hypertension Status: Chronic
--- NOTE | 2019-02-27 14:03 | CP.PCM.PN ---
Subjective - Date & Time of Evaluation Date of Evaluation: 02/23/19 Objective - Vital Signs/Intake and Output Vital Signs (last 24 hours): Temp Pulse Resp BP Pulse Ox 97.2 F L 85 21 147/91 H 97 02/26/19 08:06 02/26/19 08:32 02/26/19 08:06 02/26/19 08:32 02/26/19 08:06 - Labs Labs: 02/25/19 07:45 02/25/19 07:45 Assessment and Plan (1) Acute CVA (cerebrovascular accident) Status: Acute (2) Diabetes mellitus with hyperglycemia Status: Acute (3) Right hemiparesis Status: Acute (4) Essential (primary) hypertension Status: Chronic
--- NOTE | 2019-02-27 14:04 | CP.PCM.PN ---
Subjective - Date & Time of Evaluation Date of Evaluation: 02/24/19 Objective - Vital Signs/Intake and Output Vital Signs (last 24 hours): Temp Pulse Resp BP Pulse Ox 97.2 F L 85 21 147/91 H 97 02/26/19 08:06 02/26/19 08:32 02/26/19 08:06 02/26/19 08:32 02/26/19 08:06 - Labs Labs: 02/25/19 07:45 02/25/19 07:45 Assessment and Plan (1) Acute CVA (cerebrovascular accident) Status: Acute (2) Diabetes mellitus with hyperglycemia Status: Acute (3) Right hemiparesis Status: Acute (4) Essential (primary) hypertension Status: Chronic
--- NOTE | 2019-02-27 14:04 | CP.PCM.PN ---
Subjective - Date & Time of Evaluation Date of Evaluation: 02/25/19 Objective - Vital Signs/Intake and Output Vital Signs (last 24 hours): Temp Pulse Resp BP Pulse Ox 97.2 F L 85 21 147/91 H 97 02/26/19 08:06 02/26/19 08:32 02/26/19 08:06 02/26/19 08:32 02/26/19 08:06 - Labs Labs: 02/25/19 07:45 02/25/19 07:45 Assessment and Plan (1) Acute CVA (cerebrovascular accident) Status: Acute (2) Diabetes mellitus with hyperglycemia Status: Acute (3) Right hemiparesis Status: Acute (4) Essential (primary) hypertension Status: Chronic
--- NOTE | 2019-02-27 14:05 | CP.PCM.DIS ---
Provider - Provider Date of Admission: 02/03/19 16:24 Attending physician: Karli Rosenberg MD Consults: 02/03/19 16:46 Physiatry Consult Routine Comment: Consulting Provider: Tomy Brown Consulting Physician: Tomy Brown Reason for Consult: ACUTE CVA 02/03/19 16:48 Case Management Referral Routine Comment: Physician Instructions: Reason For Exam: ACUTE CVA Reason for Referral: Ticket Scheduler Eval 02/03/19 17:14 Pharmacist Consult As Ordered Comment: Physician Instructions: Reason For Exam: ACUTE CVA 02/03/19 17:24 Podiatry Consult Routine Comment: ACUTE CVA, new onset DM Consulting Provider: Michael Goodwin Consulting Physician: Michael Goodwin Reason for Consult: toe nail clipping 02/03/19 17:56 Case Management Referral Routine Comment: Physician Instructions: Reason For Exam: discharge planning Reason for Referral: Discharge Planning Social Work Referral Routine Comment: dicharge planning Physician Instructions: Reason For Exam: discharge planning 02/08/19 11:39 Wound Care [Nursing Referral for Wound Care] Routine Comment: Physician Instructions: Reason For Exam: right heel broken blister 02/19/19 15:30 Podiatry Consult Routine Comment: re-eval. current tx for right heel open sore Consulting Provider: Dany Valdez Consulting Physician: Dany Valdez Reason for Consult: re-eval current tx for right heel open sore. 02/22/19 12:11 Wound Care [Nursing Referral for Wound Care] Routine Comment: Physician Instructions: Reason For Exam: reeval right foot wound Time Spent in preparation of Discharge (in minutes): 25 Diagnosis - Discharge Diagnosis (1) Acute CVA (cerebrovascular accident) Status: Acute Priority: High (2) Diabetes mellitus with hyperglycemia Status: Acute Priority: Medium (3) Right hemiparesis Status: Acute Priority: High (4) Essential (primary) hypertension Status: Chronic Priority: Low Hospital Course - Lab Results Lab Results: Most Recent Lab Values WBC 8.1 K/uL (4.8-10.8) 02/25/19 07:45 RBC 4.34 Mil/uL (4.40-5.90) L 02/25/19 07:45 Hgb 13.4 g/dL (12.0-18.0) 02/25/19 07:45 Hct 38.2 % (35.0-51.0) 02/25/19 07:45 MCV 88.0 fl (80.0-94.0) 02/25/19 07:45 MCH 30.9 pg (27.0-31.0) 02/25/19 07:45 MCHC 35.1 g/dL (33.0-37.0) 02/25/19 07:45 RDW 13.0 % (11.5-14.5) 02/25/19 07:45 Plt Count 145 K/uL (130-400) 02/25/19 07:45 Sodium 135 mmol/l (132-148) 02/25/19 07:45 Potassium 3.8 MMOL/L (3.6-5.0) 02/25/19 07:45 Chloride 97 mmol/L (98-107) L 02/25/19 07:45 Carbon Dioxide 29 mmol/L (22-30) 02/25/19 07:45 Anion Gap 13 (10-20) 02/25/19 07:45 BUN 20 mg/dl (9-20) 02/25/19 07:45 Creatinine 0.7 mg/dl (0.8-1.5) L 02/25/19 07:45 Est GFR ( Amer) > 60 02/25/19 07:45 Est GFR (Non-Af Amer) > 60 02/25/19 07:45 POC Glucose (mg/dL) 153 mg/dL (65-110) H 02/26/19 16:03 Random Glucose 171 mg/dL (75-110) H 02/25/19 07:45 Calcium 9.0 mg/dL (8.4-10.2) 02/25/19 07:45 Total Bilirubin 0.8 mg/dl (0.2-1.3) 02/07/19 06:00 AST 12 U/L (17-59) L D 02/07/19 06:00 ALT 26 U/L (21-72) 02/07/19 06:00 Alkaline Phosphatase 75 U/L (38-126) 02/07/19 06:00 Total Protein 5.9 G/DL (6.3-8.2) L 02/07/19 06:00 Albumin 3.4 g/dL (3.5-5.0) L D 02/07/19 06:00 Globulin 2.5 gm/dL (2.2-3.9) 02/07/19 06:00 Albumin/Globulin Ratio 1.4 (1.0-2.1) 02/07/19 06:00 Urine Osmolality 906 mosm/kg (300-1000) 02/04/19 18:52 Ur Random Sodium 7 mmol/L 02/04/19 18:52 Discharge Exam - Head Exam Head Exam: ATRAUMATIC, NORMOCEPHALIC Discharge Plan - Discharge Medications Prescriptions: Insulin Lispro [Humalog (Insulin Lispro)] 100 unit SQ ACHS #1 unit - Follow Up Plan Condition: GOOD Disposition: REHAB FACILITY/REHAB UNIT Instructions: Stroke (DC) Additional Instructions: Needs assistance w/all daily activities, Fall Precaution W/ right sided weakness. Out of bed to wheelchair w/ one assist . Referrals: Dany Valdez DPM [[facility]] -
== END 2019-02-26 19:50 | DRG 57 ==
PROVIDERS: ADMIT Internal Medicine; ATTEND Internal Medicine
PROC: F07Z9FZ Gait Training/Functional Ambulation Treatment using Assistive, Adaptive, Supportive or Protective Equipment (ICD-10-PCS; principal; 2019-02-03)
PROC: F08Z4FZ Home Management Treatment using Assistive, Adaptive, Supportive or Protective Equipment (ICD-10-PCS; 2019-02-03)
PROC: 3E02340 Introduction of Influenza Vaccine into Muscle, Percutaneous Approach (ICD-10-PCS; 2019-02-03)
PROC: 3E0234Z Introduction of Serum, Toxoid and Vaccine into Muscle, Percutaneous Approach (ICD-10-PCS; 2019-02-03)
PROC: F07L6FZ Therapeutic Exercise Treatment of Musculoskeletal System - Lower Back / Lower Extremity using Assistive, Adaptive, Supportive or Protective Equipment (ICD-10-PCS; 2019-02-04)
PROC: 0HBRXZZ Excision of Toe Nail, External Approach (ICD-10-PCS; 2019-02-04)
PROC: 0HBRXZZ Excision of Toe Nail, External Approach (ICD-10-PCS; 2019-02-04)
PROC: 0HBRXZZ Excision of Toe Nail, External Approach (ICD-10-PCS; 2019-02-04)
PROC: 0HBRXZZ Excision of Toe Nail, External Approach (ICD-10-PCS; 2019-02-04)
PROC: 0HBRXZZ Excision of Toe Nail, External Approach (ICD-10-PCS; 2019-02-04)
PROC: 0HBRXZZ Excision of Toe Nail, External Approach (ICD-10-PCS; 2019-02-04)
PROC: 0HBRXZZ Excision of Toe Nail, External Approach (ICD-10-PCS; 2019-02-04)
PROC: 0HBRXZZ Excision of Toe Nail, External Approach (ICD-10-PCS; 2019-02-04)
PROC: 0HBRXZZ Excision of Toe Nail, External Approach (ICD-10-PCS; 2019-02-04)
PROC: 0HBRXZZ Excision of Toe Nail, External Approach (ICD-10-PCS; 2019-02-04)
DX: I69.351 Hemiplegia and hemiparesis following cerebral infarction affecting right dominant side (principal); E11.65 Type 2 diabetes mellitus with hyperglycemia; L89.619 Pressure ulcer of right heel, unspecified stage; I10 Essential (primary) hypertension; L60.8 Other nail disorders; E78.00 Pure hypercholesterolemia, unspecified; F17.210 Nicotine dependence, cigarettes, uncomplicated; Z23 Encounter for immunization; Z79.4 Long term (current) use of insulin